=== PATIENT | female | born 1950 | race Caucasian/White ===

== ENCOUNTER 2017-06-21 13:41 | Day surgery (SDC) | payer MEDICARE, MEDICAID | END 2017-06-21 14:23 | disposition home or self-care (01) | LOC: ONC/OP 13:41 | PROVIDERS: ATTEND Internal Medicine Medical Oncology | DX: Z51.11 Encounter for antineoplastic chemotherapy (principal); C50.412 Malignant neoplasm of upper-outer quadrant of left female breast; C79.51 Secondary malignant neoplasm of bone; E11.9 Type 2 diabetes mellitus without complications; I10 Essential (primary) hypertension; F32.9 Major depressive disorder, single episode, unspecified; M79.7 Fibromyalgia; Z79.84 Long term (current) use of oral hypoglycemic drugs; Z79.1 Long term (current) use of non-steroidal anti-inflammatories (NSAID); Z90.49 Acquired absence of other specified parts of digestive tract; Z90.722 Acquired absence of ovaries, bilateral; Z90.79 Acquired absence of other genital organ(s) | CPT/HCPCS: 80053; 82248; 83615; 84100; 84550; 96402; J9395 ==

== ENCOUNTER 2017-07-18 09:18 | Outpatient (CLI) | payer MEDICARE, MEDICAID ==
--- NOTE | 2017-07-19 16:32 | PET ---
PET CT: 07/19/17 Reference made to prior PET scans dating back to March 14, 2015. RADIOPHARMACEUTICAL: 12.9 millicuries [id number] IV. CLINICAL HISTORY: Metastatic breast cancer, followup. There is appropriate biodistribution radiotracer activity. There is a notable degree of diffuse incr eased activity of the colon, nonspecific. Diffuse osseous, blastic metastases are redemonstrated without interval hypermetabolism. No new hype rmetabolic mass or adenopathy is identified. Redemonstration of bilateral adrenal adenomas, stable. Stable postsurgical distortion of the left breast with associated calcific densities. IMPRESSION: No new hypermetabolic lesion identified. Redemonstration of sequela from diffuse osseous blastic metastases. POS: [facility]
== END 2017-07-18 09:19 | disposition home or self-care (01) ==
LOC: PET 09:18
PROVIDERS: ATTEND Internal Medicine Medical Oncology
DX: C50.919 Malignant neoplasm of unspecified site of unspecified female breast (principal)
CPT/HCPCS: 78815; A9552

== ENCOUNTER 2017-07-19 15:02 | Day surgery (SDC) | payer MEDICARE, MEDICAID ==
[2017-07-19] MEDS ORDERED: diphenhydrAMINE 25 MG in Sodium Chloride 0.9% 50 ML IVPB SCH (15:45)
[2017-07-19] MEDS ORDERED: Dexamethasone 6 MG in Sodium Chloride 0.9% 50 ML IVPB SCH (15:45)
[2017-07-19] MEDS ORDERED: Zoledronic Acid 4 MG in Sodium Chloride 0.9% 100 ML IVPB SCH (15:45)
[2017-07-19 16:04] VITALS: BP 118/59; TEMP 98.7
== END 2017-07-19 17:32 | disposition home or self-care (01) ==
LOC: ONC/OP 15:02
PROVIDERS: ATTEND Internal Medicine Medical Oncology
DX: Z51.11 Encounter for antineoplastic chemotherapy (principal); C50.412 Malignant neoplasm of upper-outer quadrant of left female breast; E11.9 Type 2 diabetes mellitus without complications; I10 Essential (primary) hypertension; F32.9 Major depressive disorder, single episode, unspecified; Z17.0 Estrogen receptor positive status [ER+]; Z79.84 Long term (current) use of oral hypoglycemic drugs; Z79.899 Other long term (current) drug therapy; Z90.49 Acquired absence of other specified parts of digestive tract; Z90.710 Acquired absence of both cervix and uterus; Z90.722 Acquired absence of ovaries, bilateral; Z90.79 Acquired absence of other genital organ(s); Z98.890 Other specified postprocedural states
CPT/HCPCS: 36415; 80053; 82248; 83615; 84100; 84550; 96365; 96367; 96401; J1100; J1200; J3489; J7050; J9395

== ENCOUNTER 2017-08-16 14:36 | Day surgery (SDC) | payer MEDICARE, MEDICAID ==
[2017-08-16 14:44] VITALS: BP 130/70; TEMP 97.5
== END 2017-08-16 15:55 | disposition home or self-care (01) ==
LOC: ONC/OP 14:36
PROVIDERS: ATTEND Internal Medicine Medical Oncology
DX: Z51.11 Encounter for antineoplastic chemotherapy (principal); C50.412 Malignant neoplasm of upper-outer quadrant of left female breast; C79.52 Secondary malignant neoplasm of bone marrow; E11.9 Type 2 diabetes mellitus without complications; I10 Essential (primary) hypertension; F32.9 Major depressive disorder, single episode, unspecified; Z17.0 Estrogen receptor positive status [ER+]; Z79.84 Long term (current) use of oral hypoglycemic drugs; Z79.899 Other long term (current) drug therapy; Z90.49 Acquired absence of other specified parts of digestive tract; Z90.710 Acquired absence of both cervix and uterus; Z90.722 Acquired absence of ovaries, bilateral; Z90.79 Acquired absence of other genital organ(s); Z98.890 Other specified postprocedural states
CPT/HCPCS: 36415; 80053; 82248; 82378; 83615; 84100; 84550; 86300; 96372; J9395

== ENCOUNTER 2017-09-13 15:11 | Day surgery (SDC) | payer MEDICARE, MEDICAID | END 2017-09-13 16:09 | disposition home or self-care (01) | LOC: ONC/OP 15:11 | PROVIDERS: ATTEND Internal Medicine Medical Oncology | DX: Z51.11 Encounter for antineoplastic chemotherapy (principal); C50.412 Malignant neoplasm of upper-outer quadrant of left female breast; C79.51 Secondary malignant neoplasm of bone; C79.52 Secondary malignant neoplasm of bone marrow; E11.9 Type 2 diabetes mellitus without complications; F32.9 Major depressive disorder, single episode, unspecified; I10 Essential (primary) hypertension; Z17.0 Estrogen receptor positive status [ER+]; Z79.84 Long term (current) use of oral hypoglycemic drugs; Z79.899 Other long term (current) drug therapy; Z90.49 Acquired absence of other specified parts of digestive tract; Z90.710 Acquired absence of both cervix and uterus; Z90.722 Acquired absence of ovaries, bilateral; Z90.79 Acquired absence of other genital organ(s); Z98.890 Other specified postprocedural states | CPT/HCPCS: 36415; 80053; 82248; 83615; 84100; 84550; 96401; J9395 ==

== ENCOUNTER 2017-10-11 15:34 | Day surgery (SDC) | payer MEDICARE, MEDICAID ==
[2017-10-11] MEDS ORDERED: Sodium Chloride 0.9% 20 ML ONE (15:47)
[2017-10-11] MEDS ORDERED: diphenhydrAMINE 25 MG in Sodium Chloride 0.9% 50 ML IVPB SCH (16:00)
[2017-10-11] MEDS ORDERED: Zoledronic Acid 4 MG in Sodium Chloride 0.9% 100 ML IVPB SCH (16:00)
[2017-10-11] MEDS ORDERED: Dexamethasone 6 MG in Sodium Chloride 0.9% 50 ML IVPB SCH (16:00)
[2017-10-11] MEDS ORDERED: PALBOCICLIB PO SCH (16:00)
[2017-10-11 16:38] VITALS: BP 123/58; TEMP 97.8
== END 2017-10-11 18:39 | disposition home or self-care (01) ==
LOC: ONC/OP 15:34
PROVIDERS: ATTEND Internal Medicine Medical Oncology
DX: Z51.11 Encounter for antineoplastic chemotherapy (principal); C50.412 Malignant neoplasm of upper-outer quadrant of left female breast; C79.52 Secondary malignant neoplasm of bone marrow; E11.9 Type 2 diabetes mellitus without complications; I10 Essential (primary) hypertension; F32.9 Major depressive disorder, single episode, unspecified; M79.7 Fibromyalgia; Z17.0 Estrogen receptor positive status [ER+]; Z79.84 Long term (current) use of oral hypoglycemic drugs; Z79.899 Other long term (current) drug therapy; Z90.711 Acquired absence of uterus with remaining cervical stump; Z90.722 Acquired absence of ovaries, bilateral; Z98.890 Other specified postprocedural states
CPT/HCPCS: 36415; 80053; 82248; 82378; 83615; 84100; 84550; 86300; 96365; 96367; 96402; A4216; J1100; J1200; J3489; J7050; J9395

== ENCOUNTER 2017-11-08 13:53 | Day surgery (SDC) | payer MEDICARE, MEDICAID | END 2017-11-08 14:26 | disposition home or self-care (01) | LOC: ONC/OP 13:53 | PROVIDERS: ATTEND Internal Medicine Medical Oncology | DX: Z51.11 Encounter for antineoplastic chemotherapy (principal); C50.412 Malignant neoplasm of upper-outer quadrant of left female breast; Z17.0 Estrogen receptor positive status [ER+]; E11.9 Type 2 diabetes mellitus without complications; I10 Essential (primary) hypertension; F32.9 Major depressive disorder, single episode, unspecified; M79.7 Fibromyalgia; Z90.49 Acquired absence of other specified parts of digestive tract; Z90.710 Acquired absence of both cervix and uterus; Z90.722 Acquired absence of ovaries, bilateral | CPT/HCPCS: 36415; 80053; 82248; 83615; 84100; 84550; 96402; J9395 ==

== ENCOUNTER 2017-12-06 14:09 | Day surgery (SDC) | payer MEDICARE, MEDICAID ==
[2017-12-06 14:21] VITALS: BP 116/55; TEMP 97.9
== END 2017-12-06 15:36 | disposition home or self-care (01) ==
LOC: ONC/OP 14:09
PROVIDERS: ATTEND Internal Medicine Medical Oncology
DX: Z51.11 Encounter for antineoplastic chemotherapy (principal); C50.412 Malignant neoplasm of upper-outer quadrant of left female breast; C79.51 Secondary malignant neoplasm of bone; C79.52 Secondary malignant neoplasm of bone marrow; E11.9 Type 2 diabetes mellitus without complications; I10 Essential (primary) hypertension; F32.9 Major depressive disorder, single episode, unspecified; M79.7 Fibromyalgia; Z17.0 Estrogen receptor positive status [ER+]; Z79.84 Long term (current) use of oral hypoglycemic drugs; Z79.899 Other long term (current) drug therapy
CPT/HCPCS: 96401; J9395

== ENCOUNTER 2018-01-03 14:08 | Day surgery (SDC) | payer MEDICARE, MEDICAID ==
[2018-01-03] MEDS ORDERED: Dexamethasone 10 MG/ML VIAL SLOW IVP SCH ×2 (14:30)
[2018-01-03] MEDS ORDERED: diphenhydrAMINE 50 MG/ML VIAL IVP SCH (14:30)
[2018-01-03] MEDS ORDERED: Zoledronic Acid 4 MG in Sodium Chloride 0.9% 100 ML IVPB SCH (14:30)
[2018-01-03] MEDS ORDERED: Sodium Chloride 0.9% 50 ML ONE (14:50)
[2018-01-03 15:31] VITALS: BP 131/63
== END 2018-01-03 16:30 | disposition home or self-care (01) ==
LOC: ONC/OP 14:08
PROVIDERS: ATTEND Internal Medicine Medical Oncology
DX: Z51.11 Encounter for antineoplastic chemotherapy (principal); C50.412 Malignant neoplasm of upper-outer quadrant of left female breast; C79.51 Secondary malignant neoplasm of bone; E11.9 Type 2 diabetes mellitus without complications; I10 Essential (primary) hypertension; F32.9 Major depressive disorder, single episode, unspecified; M79.7 Fibromyalgia; Z17.0 Estrogen receptor positive status [ER+]; Z79.84 Long term (current) use of oral hypoglycemic drugs; Z79.899 Other long term (current) drug therapy
CPT/HCPCS: 96365; 96375; 96402; A4216; J1100; J1200; J3489; J7050; J9395

== ENCOUNTER 2018-01-25 07:25 | Outpatient (CLI) | payer MEDICARE, MEDICAID ==
--- NOTE | 2018-01-25 10:09 | PET ---
RADIONUCLIDE PET SCAN WITH CT ATTENUATION CORRECTION: Date: 01/25/18 HISTORY: Breast cancer with osseous metastasis. Restaging. COMPARISON: 07/18/17. FINDINGS: Physiologic uptake of radiotracer is again demonstrated throughout the enteric system and along each urinary tract. A new focus of increased radiotracer uptake at the posterior aspect of the left iliac bone shows a ma ximum SUV of 7.2. A new focus of uptake at the posterior lateral aspect of the right side of the sacr um shows a maximum SUV of 3.2. No other new areas of abnormal uptake are apparent. Nondiagnostic CT attenuation correction images again show widespread osseous sclerotic lesions. The a reas of abnormal radiotracer uptake at the pelvis show no interval change on the CT images. Postopera tive changes of the left breast and adrenal adenomas and other findings are stable. IMPRESSION: Interval appearance of hypermetabolic lesions associated with the pelvis as detailed above. Findings are otherwise stable. POS: [facility]
== END 2018-01-25 07:26 | disposition home or self-care (01) ==
LOC: PET 07:25
PROVIDERS: ATTEND Internal Medicine Medical Oncology
DX: C50.919 Malignant neoplasm of unspecified site of unspecified female breast (principal); M89.9 Disorder of bone, unspecified
CPT/HCPCS: 78815; A9552

== ENCOUNTER 2018-01-31 15:19 | Day surgery (SDC) | payer MEDICARE, MEDICAID ==
[2018-01-31] MEDS ORDERED: IBRANCE PO SCH (15:45)
[2018-01-31 16:09] VITALS: BP 130/58; TEMP 98.4
== END 2018-01-31 16:09 | disposition home or self-care (01) ==
LOC: ONC/OP 15:19
PROVIDERS: ATTEND Internal Medicine Medical Oncology
DX: Z51.11 Encounter for antineoplastic chemotherapy (principal); C50.412 Malignant neoplasm of upper-outer quadrant of left female breast; C79.51 Secondary malignant neoplasm of bone
CPT/HCPCS: 96402; J9395

== ENCOUNTER 2018-02-28 13:57 | Day surgery (SDC) | payer MEDICARE, MEDICAID | END 2018-02-28 16:01 | disposition home or self-care (01) | LOC: ONC/OP 13:57 | PROVIDERS: ATTEND Internal Medicine Medical Oncology | DX: Z51.11 Encounter for antineoplastic chemotherapy (principal); C50.412 Malignant neoplasm of upper-outer quadrant of left female breast; C79.52 Secondary malignant neoplasm of bone marrow; F32.9 Major depressive disorder, single episode, unspecified; E11.9 Type 2 diabetes mellitus without complications; M79.7 Fibromyalgia; Z17.0 Estrogen receptor positive status [ER+]; Z79.899 Other long term (current) drug therapy; Z79.84 Long term (current) use of oral hypoglycemic drugs | CPT/HCPCS: 96402; J9395 ==

== ENCOUNTER 2018-03-19 13:54 | Outpatient (CLI) | payer MEDICARE, MEDICAID | END 2018-03-19 13:55 | disposition home or self-care (01) | LOC: BICMAMMO 13:54 | PROVIDERS: ATTEND Internal Medicine Medical Oncology | DX: Z08 Encounter for follow-up examination after completed treatment for malignant neoplasm (principal); Z85.3 Personal history of malignant neoplasm of breast | CPT/HCPCS: 77066; G0279 ==

== ENCOUNTER 2018-03-28 14:24 | Day surgery (SDC) | payer MEDICARE, MEDICAID ==
[2018-03-28] MEDS ORDERED: Sodium Chloride 0.9% 50 ML ONE (14:49)
[2018-03-28] MEDS ORDERED: Dexamethasone 10 MG/ML VIAL SLOW IVP SCH (15:15)
[2018-03-28] MEDS ORDERED: diphenhydrAMINE 50 MG/ML VIAL IVP SCH (15:15)
[2018-03-28] MEDS ORDERED: Zoledronic Acid 4 MG in Sodium Chloride 0.9% 100 ML IVPB SCH (15:15)
== END 2018-03-28 16:12 | disposition home or self-care (01) ==
LOC: ONC/OP 14:24
PROVIDERS: ATTEND Internal Medicine Medical Oncology
DX: Z51.11 Encounter for antineoplastic chemotherapy (principal); C50.412 Malignant neoplasm of upper-outer quadrant of left female breast; C79.51 Secondary malignant neoplasm of bone; E11.9 Type 2 diabetes mellitus without complications; I10 Essential (primary) hypertension; F32.9 Major depressive disorder, single episode, unspecified; M79.7 Fibromyalgia; Z17.0 Estrogen receptor positive status [ER+]; Z79.899 Other long term (current) drug therapy
CPT/HCPCS: 80053; 82248; 83615; 84100; 84550; 96365; 96375; 96402; A4216; J1100; J1200; J3489; J7050; J9395

== ENCOUNTER 2018-05-02 13:29 | Day surgery (SDC) | payer MEDICARE, MEDICAID ==
[2018-05-02 13:44] VITALS: BP 155/72; TEMP 97.7
== END 2018-05-02 14:06 | disposition home or self-care (01) ==
LOC: ONC/OP 13:29
PROVIDERS: ATTEND Internal Medicine Medical Oncology
DX: Z51.11 Encounter for antineoplastic chemotherapy (principal); C50.412 Malignant neoplasm of upper-outer quadrant of left female breast; E11.9 Type 2 diabetes mellitus without complications; I10 Essential (primary) hypertension; Z79.84 Long term (current) use of oral hypoglycemic drugs; Z79.899 Other long term (current) drug therapy
CPT/HCPCS: 80053; 82248; 83615; 84100; 84550; 96402; J9395

== ENCOUNTER 2018-05-30 13:56 | Day surgery (SDC) | payer MEDICARE, MEDICAID | END 2018-05-30 16:35 | disposition home or self-care (01) | LOC: ONC/OP 13:56 | PROVIDERS: ATTEND Internal Medicine Medical Oncology | DX: Z51.11 Encounter for antineoplastic chemotherapy (principal); C50.412 Malignant neoplasm of upper-outer quadrant of left female breast; E11.9 Type 2 diabetes mellitus without complications; I10 Essential (primary) hypertension; F32.9 Major depressive disorder, single episode, unspecified; Z79.899 Other long term (current) drug therapy | CPT/HCPCS: 36415; 80053; 82248; 83615; 84100; 84550; 96402; J9395 ==

== ENCOUNTER 2018-06-28 14:05 | Day surgery (SDC) | payer MEDICARE, MEDICAID ==
[2018-06-28] MEDS ORDERED: Dexamethasone 6 MG in Sodium Chloride 0.9% 50 ML IVPB SCH (14:30)
[2018-06-28] MEDS ORDERED: diphenhydrAMINE 25 MG CAP PO SCH (14:30)
[2018-06-28] MEDS ORDERED: Zoledronic Acid 4 MG in Sodium Chloride 0.9% 100 ML IVPB SCH (14:30)
[2018-06-28] MEDS ORDERED: Sodium Chloride 0.9% 20 ML ONE (14:39)
== END 2018-06-28 19:47 | disposition home or self-care (01) ==
LOC: ONC/OP 14:05
PROVIDERS: ATTEND Internal Medicine Medical Oncology
DX: Z51.11 Encounter for antineoplastic chemotherapy (principal); C50.412 Malignant neoplasm of upper-outer quadrant of left female breast; E11.9 Type 2 diabetes mellitus without complications; I10 Essential (primary) hypertension; F32.9 Major depressive disorder, single episode, unspecified; Z79.84 Long term (current) use of oral hypoglycemic drugs; Z79.899 Other long term (current) drug therapy
CPT/HCPCS: 80053; 82378; 86300; 96365; 96367; 96402; J1100; J3489; J7050; J9395

== ENCOUNTER 2018-07-10 12:47 | Outpatient (CLI) | payer MEDICARE, MEDICAID ==
--- NOTE | 2018-07-10 15:48 | PET ---
RADIONUCLIDE PET SCAN WITH CT ATTENUATION CORRECTION: HISTORY: Breast cancer with osseous metastasis. Restaging. COMPARISON: 01/25/18. FINDINGS: Physiologic uptake of radiotracer throughout the entire system and along each urinary tract. At the right axilla, increased uptake is associated with two adjacent nonenlarged lymph nodes. Maximu m SUV 4.8. Uptake at the posterior aspect of the left iliac bone now shows maximum SUV of 4.5 (previously 7.2). Uptake at the lateral margin of the left sacrum adjacent to the sacroiliac joint now shows maximum CLEMENTS V of 6.5 (previously 3.0). The lesion at the right side of the sacrum shows maximum SUV of 2.8 (previously 3.2). No new areas of uptake are apparent. IMPRESSION: 1. New hypermetabolic nonenlarged right axillary lymph nodes. 2. Increasing hypermetabolic activity associated with the left sacral lesion. Other lesions in the p crow are stable. POS: [facility]
== END 2018-07-10 12:48 | disposition home or self-care (01) ==
LOC: PET 12:47
PROVIDERS: ATTEND Internal Medicine Hematology & Oncology
DX: C50.912 Malignant neoplasm of unspecified site of left female breast (principal); M53.3 Sacrococcygeal disorders, not elsewhere classified
CPT/HCPCS: 78815; A9552

== ENCOUNTER 2018-07-26 13:29 | Day surgery (SDC) | payer MEDICARE, MEDICAID ==
[2018-07-26 13:40] VITALS: BP 147/69; TEMP 97.6
== END 2018-07-26 15:51 | disposition home or self-care (01) ==
LOC: ONC/OP 13:29
PROVIDERS: ATTEND Internal Medicine Medical Oncology
DX: Z51.11 Encounter for antineoplastic chemotherapy (principal); C50.412 Malignant neoplasm of upper-outer quadrant of left female breast
CPT/HCPCS: 80053; 82248; 83615; 84100; 84550; 96402; J9395

== ENCOUNTER 2018-08-27 14:05 | Day surgery (SDC) | payer MEDICARE, MEDICAID ==
[2018-08-27 14:42] VITALS: BP 154/66; TEMP 97.6
== END 2018-08-27 16:10 | disposition home or self-care (01) ==
LOC: ONC/OP 14:05
PROVIDERS: ATTEND Internal Medicine Medical Oncology
DX: Z51.11 Encounter for antineoplastic chemotherapy (principal); C50.412 Malignant neoplasm of upper-outer quadrant of left female breast; C79.51 Secondary malignant neoplasm of bone; E11.9 Type 2 diabetes mellitus without complications; I10 Essential (primary) hypertension; F32.9 Major depressive disorder, single episode, unspecified; M79.7 Fibromyalgia; Z79.84 Long term (current) use of oral hypoglycemic drugs; Z79.899 Other long term (current) drug therapy
CPT/HCPCS: 96402; J9395

== ENCOUNTER 2018-09-20 14:10 | Day surgery (SDC) | payer MEDICARE, MEDICAID ==
[2018-09-20] MEDS ORDERED: Zoledronic Acid 4 MG in Sodium Chloride 0.9% 100 ML IVPB SCH (14:30)
[2018-09-20] MEDS ORDERED: Dexamethasone 4 mg/ml Vial SLOW IVP SCH (14:30)
[2018-09-20] MEDS ORDERED: diphenhydrAMINE 25 MG CAP PO SCH (14:30)
[2018-09-20] MEDS ORDERED: Sodium Chloride 0.9% 30 ML ONE (14:33)
[2018-09-20 14:55] VITALS: BP 118/58; TEMP 98.7
== END 2018-09-20 15:45 | disposition home or self-care (01) ==
LOC: ONC/OP 14:10
PROVIDERS: ATTEND Internal Medicine Medical Oncology
DX: Z51.11 Encounter for antineoplastic chemotherapy (principal); C50.412 Malignant neoplasm of upper-outer quadrant of left female breast
CPT/HCPCS: 80053; 82248; 83615; 84100; 84550; 96365; 96402; J1100; J3489; J7050; J9395

== ENCOUNTER 2018-10-11 08:50 | Outpatient (CLI) | payer MEDICARE, MEDICAID ==
--- NOTE | 2018-10-11 12:19 | PET ---
NUCLEAR MEDICINE FDG PET CT WHOLE BODY: (Positron Emission Tomography) DATE: 10/11/18 HISTORY: 68-year-old female for restaging of breast cancer with bone metastasis. COMPARISON: 07/10/18 TECHNIQUE: IV injection F-18 Fluorodeoxyglucose (FDG) dose: 12 mCi Whole body PET and attenuation-correction CT performed from vertex of head to bottom of feet. FINDINGS: SUV (standard uptake value) numbers given are maximum SUV's. QCLR used to obtained SUV. Again noted are the very extensive sclerotic metastatic lesions throughout the skeleton. Only some ar e FDG-avid. The left T11 transverse process has current SUV of 3.1. It was previously 4.0. The lesion at the posterior superior aspect of the left ilium currently has SUV of 5.5. Previously, i t was 4.5. Inferior to that, lesion at the lateral aspect of left sacral ala abutting the SI joint has current S UV of 5.0. Previously, it was 6.5. The previously demonstrated hypermetabolic right axillary lymph node has resolved. Currently, no evidence of hypermetabolic metastatic lesions of soft tissue structures within the abdo indra cavity, pelvic cavity, thoracic cavity, neck, or extracranial head. IMPRESSION: 1. Very extensive osteoblastic skeletal metastatic disease. 2. Hypermetabolic activity involves only some of the skeletal lesions (the others are presumably rad escent). One of them has greater uptake than before, while others have less uptake than before. 3. The previously demonstrated hypermetabolic right axillary lymph node has improved. ANGELI Byers POS: [facility]
== END 2018-10-11 08:51 | disposition home or self-care (01) ==
LOC: PET 08:50
PROVIDERS: ATTEND Internal Medicine Medical Oncology
DX: C50.919 Malignant neoplasm of unspecified site of unspecified female breast (principal); C79.51 Secondary malignant neoplasm of bone
CPT/HCPCS: 78816; A9552

== ENCOUNTER 2018-10-18 13:38 | Day surgery (SDC) | payer MEDICARE, MEDICAID ==
[2018-10-18 13:52] VITALS: BP 128/60; TEMP 97.8
== END 2018-10-18 14:29 | disposition home or self-care (01) ==
LOC: ONC/OP 13:38
PROVIDERS: ATTEND Internal Medicine Medical Oncology
DX: Z51.11 Encounter for antineoplastic chemotherapy (principal); C50.412 Malignant neoplasm of upper-outer quadrant of left female breast; C79.51 Secondary malignant neoplasm of bone; E11.9 Type 2 diabetes mellitus without complications; I10 Essential (primary) hypertension; F32.9 Major depressive disorder, single episode, unspecified; M79.7 Fibromyalgia; Z17.0 Estrogen receptor positive status [ER+]; Z79.84 Long term (current) use of oral hypoglycemic drugs; Z79.899 Other long term (current) drug therapy
CPT/HCPCS: 80053; 82248; 82378; 83615; 84100; 84550; 86300; 96402; J9395

== ENCOUNTER 2018-11-22 10:10 | Day surgery (SDC) | payer MEDICARE, MEDICAID ==
[2018-11-22 10:51] VITALS: BP 151/61; TEMP 97.7
== END 2018-11-22 10:51 | disposition home or self-care (01) ==
LOC: ONC/OP 10:10
PROVIDERS: ATTEND Internal Medicine Medical Oncology
DX: Z51.11 Encounter for antineoplastic chemotherapy (principal); C50.412 Malignant neoplasm of upper-outer quadrant of left female breast; C79.51 Secondary malignant neoplasm of bone; E11.9 Type 2 diabetes mellitus without complications; I10 Essential (primary) hypertension; F32.9 Major depressive disorder, single episode, unspecified; M79.7 Fibromyalgia; Z17.0 Estrogen receptor positive status [ER+]
CPT/HCPCS: 36415; 80053; 82248; 83615; 84100; 84550; 96402; J9395

== ENCOUNTER 2018-12-20 13:46 | Day surgery (SDC) | payer MEDICARE, MEDICAID ==
[~2018-12-20 13:46] MED LIST: Dexamethasone 6 MG in Sodium Chloride 0.9% 50 ML IVPB SCH; Dexamethasone Sod Phosphate 6 MG in Sodium Chloride 0.9% 50 ML IVPB SCH; Zoledronic Acid 4 MG in Sodium Chloride 0.9% 100 ML IVPB SCH; diphenhydrAMINE 25 MG in Sodium Chloride 0.9% 50 ML IVPB SCH; diphenhydrAMINE 50 MG in Sodium Chloride 0.9% 50 ML IVPB SCH
[2018-12-20] MEDS ORDERED: Sodium Chloride 0.9% 20 ML ONE (13:48)
[2018-12-20 14:31] VITALS: BP 174/81; TEMP 98.5
== END 2018-12-20 15:58 | disposition home or self-care (01) ==
LOC: ONC/OP 13:46
PROVIDERS: ATTEND Internal Medicine Medical Oncology
DX: Z51.11 Encounter for antineoplastic chemotherapy (principal); C50.412 Malignant neoplasm of upper-outer quadrant of left female breast; Z17.0 Estrogen receptor positive status [ER+]
CPT/HCPCS: 80053; 82248; 82378; 83615; 84100; 84550; 86300; 96366; 96375; 96401; J1100; J1200; J3489; J7050; J9395

== ENCOUNTER 2019-01-17 13:42 | Day surgery (SDC) | payer MEDICARE, MEDICAID ==
[2019-01-17 13:57] VITALS: BP 171/73; TEMP 98.3
== END 2019-01-17 13:59 | disposition home or self-care (01) ==
LOC: ONC/OP 13:42
PROVIDERS: ATTEND Internal Medicine Medical Oncology
DX: Z51.11 Encounter for antineoplastic chemotherapy (principal); C50.412 Malignant neoplasm of upper-outer quadrant of left female breast; Z17.0 Estrogen receptor positive status [ER+]
CPT/HCPCS: 36415; 80053; 82248; 83615; 84100; 84550; 96402; J9395

== ENCOUNTER 2019-02-14 13:25 | Day surgery (SDC) | payer MEDICARE, MEDICAID ==
[2019-02-14 14:06] VITALS: BP 138/64; TEMP 98.3
== END 2019-02-14 14:06 | disposition home or self-care (01) ==
LOC: ONC/OP 13:25
PROVIDERS: ATTEND Internal Medicine Medical Oncology
DX: Z51.11 Encounter for antineoplastic chemotherapy (principal); C50.412 Malignant neoplasm of upper-outer quadrant of left female breast
CPT/HCPCS: 80053; 82248; 83615; 84100; 84550; 96402; J9395

== ENCOUNTER 2019-03-14 14:06 | Day surgery (SDC) | payer MEDICARE, MEDICAID ==
[2019-03-14 15:44] VITALS: BP 153/67; TEMP 98.2
== END 2019-03-14 16:06 | disposition home or self-care (01) ==
LOC: ONC/OP 14:06
PROVIDERS: ATTEND Internal Medicine Medical Oncology
DX: Z51.11 Encounter for antineoplastic chemotherapy (principal); C50.412 Malignant neoplasm of upper-outer quadrant of left female breast; Z17.0 Estrogen receptor positive status [ER+]
CPT/HCPCS: 96401; J9395

== ENCOUNTER 2019-03-14 14:13 | Outpatient (CLI) | payer MEDICARE, MEDICAID ==
--- NOTE | 2019-03-14 15:50 | RAD ---
PELVIS AP STANDARD: 03/14/19 HISTORY: SI joint pain. COMPARISON: PET CT from September 2018. FINDINGS: There is ivory appearance of the osseous pelvis and lower lumbar spine. Diffuse sclerosis. Mild narrowing of the pubic symphysis. Mild degenerative change of the SI joints. Mild right gluteus medius calcific tendinosis. No dilated loops of bowel in the abdomen. No pathologic fracture appreciated. IMPRESSION: 1. Diffuse osseous blastic metastatic disease. 2. Calcific tendinosis of right gluteus medius tendon. POS: [facility]
== END 2019-03-14 14:14 | disposition home or self-care (01) ==
LOC: RAD 14:13
PROVIDERS: ATTEND Internal Medicine Medical Oncology
DX: M53.3 Sacrococcygeal disorders, not elsewhere classified (principal); C79.51 Secondary malignant neoplasm of bone; M65.28 Calcific tendinitis, other site
CPT/HCPCS: 72170

== ENCOUNTER 2019-03-27 12:43 | Outpatient (CLI) | payer MEDICARE, MEDICAID ==
--- NOTE | 2019-03-27 15:29 | MMO ---
Bilateral MAMMO Bilat Screen [facility]. CLINICAL HISTORY: Patient is 68 years old and is seen for screening. The patient has no family history of breast cancer. The patient has a history of Ultrasound Guided Core Biopsy procedure revealed invasive lobular left breast carcinoma in June, and Excisional Biopsy procedure revealed invasive Adenocarcinoma in the left breast in June,. The patient has a history of left Ultrasound Guided Core Biopsy in June, and left Lumpectomy in 2005 - malignant. VIEWS: The views performed were: bilateral craniocaudal with tomosynthesis and bilateral mediolateral oblique with tomosynthesis. FILMS COMPARED: The present examination has been compared to prior imaging studies performed at [facility] on 03/09/2015, 03/14/2016, 03/16/2017 and 03/19/2018. MAMMOGRAM FINDINGS: The breasts are heterogeneously dense, which could obscure a lesion on mammography. There are stable post operative changes seen in the right breast. There are no suspicious masses, suspicious calcifications, or new areas of architectural distortion. IMPRESSION: THERE IS NO MAMMOGRAPHIC EVIDENCE OF MALIGNANCY. A ROUTINE FOLLOW-UP MAMMOGRAM IN 1 YEAR IS RECOMMENDED. THE RESULTS OF THIS EXAM WERE SENT TO THE PATIENT. ACR BI-RADS Category 2 - Benign finding MAMMOGRAPHY NOTE: 1. A negative mammogram report should not delay a biopsy if a dominant of clinically suspicious mass is present. 2. Approximately 10% to 15% of breast cancers are not detected by mammography. 3. Adenosis and dense breasts may obscure an underlying neoplasm. Reported by: RADHA PATTON MD Electonically Signed: [id number]
== END 2019-03-27 12:44 | disposition home or self-care (01) ==
LOC: BICMAMMO 12:43
PROVIDERS: ATTEND Internal Medicine Medical Oncology
DX: Z12.31 Encounter for screening mammogram for malignant neoplasm of breast (principal); Z85.3 Personal history of malignant neoplasm of breast; Z98.890 Other specified postprocedural states
CPT/HCPCS: 77063; 77067

== ENCOUNTER 2019-04-11 13:21 | Day surgery (SDC) | payer MEDICARE, MEDICAID ==
[~2019-04-11 13:21] MED LIST changes: -Dexamethasone 6 MG in Sodium Chloride 0.9% 50 ML IVPB SCH; -diphenhydrAMINE 50 MG in Sodium Chloride 0.9% 50 ML IVPB SCH
[2019-04-11] MEDS ORDERED: Sodium Chloride 0.9% 20 ML ONE (14:06)
[2019-04-11 14:21] VITALS: BP 168/71; TEMP 97.9
== END 2019-04-11 15:53 | disposition home or self-care (01) ==
LOC: ONC/OP 13:21
PROVIDERS: ATTEND Internal Medicine Medical Oncology
DX: Z51.11 Encounter for antineoplastic chemotherapy (principal); C50.412 Malignant neoplasm of upper-outer quadrant of left female breast
CPT/HCPCS: 80053; 82248; 83615; 84100; 84550; 96366; 96375; 96402; J1100; J1200; J3489; J3490; J9395

== ENCOUNTER 2019-04-18 09:24 | Outpatient (CLI) | payer MEDICARE, MEDICAID ==
--- NOTE | 2019-04-18 13:32 | PET ---
PET IMAGING: HISTORY: 68-year-old female. Metastatic breast cancer. Osseous metastasis. Previous has undergone previous the rapy. Evaluate for response to therapy versus progression of disease. COMPARISON: None. TECHNIQUE: PET scanning with CT attenuation correction is performed from the base of the brain to the proximal t highs following the intravenous administration of 11.5 mCi F18-FDG. FINDINGS: HEAD/NECK: No abnormal FDG localization. CHEST: No abnormal FDG localization. ABDOMEN/PELVIS: No abnormal FDG localization. OSSEOUS STRUCTURES: CT used for attenuation correction demonstrates multifocal sclerotic lesions. The left transverse pro cess at T11 currently has a maximum SUV of 3.3 (previously 3.1). There is increased FDG avidity invol ving the left iliac wing which currently has a maximum SUV of 6.9 (previously 5.5). There is increase d FDG avidity in the left sacral ala with a maximum SUV of 8.0 (previously 5.0). There is also FDG av idity in the right aspect of the sacrum. Currently, maximum SUV is 4.6. Previously, maximum SUV was 3 .2. IMPRESSION: Increased FDG avidity involving multiple osseous metastatic lesions. Additionally, there are multiple nonhypermetabolic sclerotic foci throughout the osseous structures, similar to the previous examinat ion, likely representing treated osseous metastasis. POS: [facility]
== END 2019-04-18 09:25 | disposition home or self-care (01) ==
LOC: PET 09:24
PROVIDERS: ATTEND Internal Medicine Medical Oncology
DX: C79.51 Secondary malignant neoplasm of bone (principal); C50.919 Malignant neoplasm of unspecified site of unspecified female breast
CPT/HCPCS: 78815; A9552

== ENCOUNTER 2019-05-09 13:32 | Day surgery (SDC) | payer MEDICARE, MEDICAID ==
[2019-05-09 13:44] VITALS: BP 171/74; TEMP 97.6
== END 2019-05-09 13:45 | disposition home or self-care (01) ==
LOC: ONC/OP 13:32
PROVIDERS: ATTEND Internal Medicine Medical Oncology
DX: Z51.11 Encounter for antineoplastic chemotherapy (principal); C50.412 Malignant neoplasm of upper-outer quadrant of left female breast; Z17.0 Estrogen receptor positive status [ER+]
CPT/HCPCS: 80053; 82248; 83615; 84100; 84550; 96401; J9395

== ENCOUNTER 2019-06-13 14:09 | Day surgery (SDC) | payer MEDICARE, MEDICAID | END 2019-06-13 16:00 | disposition home or self-care (01) | LOC: ONC/OP 14:09 | PROVIDERS: ATTEND Internal Medicine Medical Oncology | DX: Z51.11 Encounter for antineoplastic chemotherapy (principal); C50.412 Malignant neoplasm of upper-outer quadrant of left female breast; Z17.0 Estrogen receptor positive status [ER+] | CPT/HCPCS: 80053; 82248; 83615; 84100; 84550; 96402; J9395 ==

== ENCOUNTER 2019-07-18 14:04 | Day surgery (SDC) | payer MEDICARE, MEDICAID ==
[~2019-07-18 14:04] MED LIST changes: +Dexamethasone 10 MG/ML VIAL SLOW IVP SCH; +Dexamethasone 6 MG in Sodium Chloride 0.9% 50 ML IVPB SCH; -Dexamethasone Sod Phosphate 6 MG in Sodium Chloride 0.9% 50 ML IVPB SCH
[2019-07-18] MEDS ORDERED: Sodium Chloride 0.9% 30 ML ONE (14:05)
== END 2019-07-18 14:58 | disposition home or self-care (01) ==
LOC: ONC/OP 14:04
PROVIDERS: ATTEND Internal Medicine Medical Oncology
DX: Z51.11 Encounter for antineoplastic chemotherapy (principal); C50.412 Malignant neoplasm of upper-outer quadrant of left female breast
CPT/HCPCS: 36415; 80053; 82248; 83615; 84100; 84550; 96365; 96375; 96402; J1100; J1200; J3489; J3490; J9395

== ENCOUNTER → 2019-08-14 | Day surgery (SDC) | payer MEDICARE, MEDICAID ==
[2019-08-14 15:33] VITALS: BP 171/76; TEMP 98.3
== END ==
LOC: ONC/OP 15:11
PROVIDERS: ATTEND Internal Medicine Medical Oncology
DX: Z51.12 Encounter for antineoplastic immunotherapy (principal); C50.412 Malignant neoplasm of upper-outer quadrant of left female breast
CPT/HCPCS: 96402; J9395

== ENCOUNTER → 2019-09-16 | Day surgery (SDC) | payer MEDICARE, MEDICAID ==
[2019-09-16 14:31] VITALS: BP 154/71; TEMP 97.3
== END ==
LOC: ONC/OP 14:08
PROVIDERS: ATTEND Internal Medicine Medical Oncology
DX: Z51.11 Encounter for antineoplastic chemotherapy (principal); C50.412 Malignant neoplasm of upper-outer quadrant of left female breast
CPT/HCPCS: 96402; J9395

== ENCOUNTER 2019-10-03 11:13 | Outpatient (CLI) | payer MEDICARE, MEDICAID ==
--- NOTE | 2019-10-03 14:13 | PET ---
EXAM: PET/CT HISTORY: Left breast cancer, malignant neoplasm of upper outer left breast. Bone metastases. Last chemotherapy in 09/12/2019. Exam requested for restaging. TECHNIQUE: PET scanning with CT attenuation correction was performed from the base of the brain to the proximal thighs following the intravenous administration of 10.5 millicuries [id number]. COMPARISON: PET/CT dated 04/18/2019 FINDINGS: No jay hypermetabolism is seen in the neck, chest, axillae, abdomen or pelvis. No hypermetabolic pulmonary nodules, liver or adrenal lesions are seen. Multiple hypermetabolic lesions are seen in the skeleton including the right maxilla, spine, pelvis, proximal femurs, right scapula and left proximal humerus several of these are new since the last study. The maximum SUV is 5.7 at L5. There is physiologic activity in the GI and tracts and the visualized portions of the brain. The CT scan used for attenuation correction demonstrates no evidence of pleural effusions or ascites. Numerous sclerotic lesions are seen throughout the skeleton. The 2 cm right adrenal nodule demonstrates no abnormal FDG localization. IMPRESSION: Interval worsening of osseous metastatic disease since 04/18/2019
== END 2019-10-03 11:14 | disposition home or self-care (01) ==
LOC: PET 11:13
PROVIDERS: ATTEND Internal Medicine Medical Oncology
DX: C50.412 Malignant neoplasm of upper-outer quadrant of left female breast (principal); C79.51 Secondary malignant neoplasm of bone
CPT/HCPCS: 78815; A9552

== ENCOUNTER 2019-10-17 14:40 | Day surgery (SDC) | payer MEDICARE, MEDICAID ==
[~2019-10-17 14:40] MED LIST changes: -Dexamethasone 6 MG in Sodium Chloride 0.9% 50 ML IVPB SCH
[2019-10-17 15:44] VITALS: BP 154/68; TEMP 98.5
== END 2019-10-17 16:31 | disposition home or self-care (01) ==
LOC: ONC/OP 14:40
PROVIDERS: ATTEND Internal Medicine Medical Oncology
DX: Z51.11 Encounter for antineoplastic chemotherapy (principal); C50.412 Malignant neoplasm of upper-outer quadrant of left female breast
CPT/HCPCS: 80053; 82248; 82378; 83615; 84100; 84550; 86300; 96365; 96375; 96401; J1100; J1200; J3489; J3490; J9395

== ENCOUNTER 2019-10-18 13:55 | Outpatient (CLI) | payer MEDICARE, MEDICAID ==
--- NOTE | 2019-10-18 14:28 | RAD ---
Frontal and lateral imaging of the left humerus: 10/18/2019 COMPARISON: 08/01/2013 HISTORY: Left breast cancer, osseous metastatic disease FINDINGS: There is a sclerotic lesion within the humeral head measuring approximately 4.2 cm in crani ocaudal dimension, consistent with osseous metastatic disease. This is larger than on the prior exam. There may be an additional subtle sclerotic lesion within the distal left humeral shaft. IMPRESSION: Evidence of osseous metastatic disease as above.
--- NOTE | 2019-10-18 15:56 | RAD ---
LEFT FEMUR 2 VIEWS: COMPARISON: 08/01/2013. FINDINGS: Extensive abnormal sclerotic bone metastasis involving the visualized pelvis, portions of the sacrum and coccyx, and left femur including femoral neck and subtrochanteric regions as well as the proximal , mid, and distal femoral shaft showing worsening when compared to the prior study. No evidence for a pathologic fracture. IMPRESSION: Extensive blastic bone metastasis involving the bony skeleton. No evidence for pathologic fracture. POS: [facility]
--- NOTE | 2019-10-18 15:57 | RAD ---
RIGHT FEMUR 2 VIEWS: HISTORY: Stable IV cancer with bone metastasis. FINDINGS: Scattered sclerotic bone metastasis in the right hemipelvis and right hip as well as scattered areas in the right femoral shaft. No evidence for pathologic fracture. IMPRESSION: Bone metastasis involving the visualized bone skeleton without evidence for pathologic fracture. POS: [facility]
== END 2019-10-18 13:56 | disposition home or self-care (01) ==
LOC: BICRAD 13:55
PROVIDERS: ATTEND Internal Medicine Medical Oncology
DX: C79.51 Secondary malignant neoplasm of bone (principal); C50.919 Malignant neoplasm of unspecified site of unspecified female breast

== ENCOUNTER 2019-11-15 13:36 | Day surgery (SDC) | payer MEDICARE, MEDICAID | END 2019-11-15 16:13 | disposition home or self-care (01) | LOC: ONC/OP 13:36 | PROVIDERS: ATTEND Internal Medicine Medical Oncology | DX: Z51.11 Encounter for antineoplastic chemotherapy (principal); C50.412 Malignant neoplasm of upper-outer quadrant of left female breast | CPT/HCPCS: 96402; J9395 ==

== ENCOUNTER 2019-12-12 13:37 | Day surgery (SDC) | payer MEDICARE, MEDICAID ==
[2019-12-12 14:28] VITALS: BP 147/66; TEMP 97.9
== END 2019-12-12 14:30 | disposition home or self-care (01) ==
LOC: ONC/OP 13:37
PROVIDERS: ATTEND Internal Medicine Medical Oncology
DX: Z51.11 Encounter for antineoplastic chemotherapy (principal); C50.412 Malignant neoplasm of upper-outer quadrant of left female breast
CPT/HCPCS: 80053; 82248; 83615; 84100; 84550; 96402; J9395

== ENCOUNTER 2019-12-19 14:15 | Inpatient (IN) | payer MEDICARE, MEDICAID ==
[2019-12-19 15:26] LABS: Mean Corpuscular HGB CONC 33.2 g/dL (32.0-36.0); Mean Corpuscular Hemoglobin 36.1 pg (27.0-31.0); Mean Platelet Volume 7.5 fL (7.4-10.4); Platelet Count 211 thou/uL (130-400); Red Blood Cell (RBC) Count 3.33 mill/uL (4.20-5.40); White Blood Cell (WBC) Count 4.8 thou/uL (4.8-10.8)
--- NOTE | 2019-12-19 15:28 | RAD ---
CHEST 1 VIEW: Date: 12/19/2019 INDICATION: Elevated blood glucose. COMPARISON: None. FINDINGS: Lungs are clear. Heart size is normal. There are osteoblastic lesions involving the proximal humeri c onsistent with osteoblastic metastatic disease. IMPRESSION: 1. No acute cardiopulmonary abnormality. 2. Diffuse osteoblastic metastatic disease. POS: [facility]
[2019-12-19 15:43] LABS: Band 10 % (5-11); Eosinophils 1 % (0-10); Lymphocytes 18 % (21-51); MDiff Complete? YES; Macrocytosis SLIGHT = 6-15 cells (100X) (0-5/hpf); Monocytes 8 % (0-10); Neutrophil 60 % (42-75); Nucleated RBC 1 % (0); Platelet Morphology Comment Appears Adequate; Polychromasia SLIGHT = 2-3 cells (100X) (0-2/hpf); Tear Drops SLIGHT = 2-5 cells (100X) (0-1/hpf)
[2019-12-19 15:44] LABS: ALT (SGPT) 33 U/L (8-55); AST (SGOT) 37 U/L (5-34); Albumin 4.1 g/dL (3.4-4.8); Alkaline Phosphatase 87 U/L (40-110); Anion Gap 19 mmol/L (10-20); BUN (Urea Nitrogen) 22 mg/dL (9.8-20.1); Bilirubin, Total 0.7 mg/dL (0.2-1.2); Calc. Creatinine Clearance 0 mL/min (70-130); Calcium 9.6 mg/dL (7.8-10.44); Carbon Dioxide 21 mmol/L (23-31); Chloride 91 mmol/L (98-107); Estimated GFR-MDRD 26; Globulin 3.5 g/dL (2.4-3.5); Potassium 3.8 mmol/L (3.5-5.1); Protein, Total 7.6 g/dL (6.0-8.3); Sodium 127 mmol/L (136-145)
[2019-12-19 15:56] LABS: Glucose 620 mg/dL (80-115)
--- NOTE | 2019-12-19 16:48 | PDOC.FPRHP ---
- History of Present Illness Chief Complaint: Elevated blood sugars History of Present Illness: 69 yo F with pmhx of stage IV breast cancer and DM II presented to the ED with elevated blood sugars and mental status changes. Pt states that she noticed her sugars were continuing to rise over the past couple days and today read "T6". Her boyfriend called her pcp and oncologist who recommended she be seen in the ED. Her oncologist, Dr. Hardwick, contacted the ED and noted that her new chemo drug Piquay can cause hyperglycemia. Pt takes metformin at home for her DM. Currently she notes fogginess with her thoughts but otherwise no complaints. Pt also receives radiation therapy through Dr. Stinson. ED Course: 1L NS and 5 unit SC regular insulin - Allergies/Adverse Reactions Allergies Allergy/AdvReac Type Severity Reaction Status Date / Time No Known Allergies Allergy Verified 12/19/19 21:52 - Home Medications Medication Instructions Recorded Confirmed Type Amlodipine Besylate [amLODIPine 2.5 mg PO DAILY 12/19/19 12/19/19 History Besylate] Levothyroxine Sodium [Unithroid] 75 mcg PO DAILY 12/19/19 12/19/19 History Mecobalamin [B12 Active] 1,000 mcg PO DAILY 12/19/19 12/19/19 History Nortriptyline HCl 25 mg PO HS 12/19/19 12/19/19 History PARoxetine HCl [Paxil CR] 25 mg PO DAILY 12/19/19 12/19/19 History Pantoprazole [Protonix] 40 mg PO DAILY 12/19/19 12/19/19 History Pravastatin Sodium 20 mg PO HS 12/19/19 12/19/19 History metFORMIN [Glucophage] 500 mg PO BID- 12/19/19 12/19/19 History risperiDONE [RisperDAL] 0.5 mg PO HS 12/19/19 12/19/19 History - History PMHx: GERD, OA, Metastatic Breast Cancer, hypothryoid, DM II, HTN, CKD, Fibromyalgia, Depression PSHx: Lumpectomy, cataract, hysterectomy, cholecystectomy FHx: CVA - father; CVA and HTN - mother Social: Occasional alcohol, denies any tobacco or drug use - Review of Systems General: denies: fever/chills, weight/appetite/sleep changes Eyes: denies: vision changes, other ENT: denies: rhinorrhea, other Respiratory: denies: cough, shortness of breath Cardiovascular: denies: chest pain, palpitation Gastrointestinal: reports: abdominal pain (mild). denies: nausea, vomiting, diarrhea Genitourinary: reports: polyuria. denies: incontinence, dysuria Skin: denies: rashes, lesions Musculoskeletal: reports: pain (bone pain from mets). denies: swelling Neurological: reports: other (mild confusion). denies: numbness, weakness Psychological: reports: depression. denies: other - Vital signs BP: 145/59, MAP: 87, Pulse: 73, Resp: 16, Temp: 97.8 (Oral), Pain: 0, O2 sat: 95 on (Room Air) - Physical Exam Constitutional: NAD, awake, alert and oriented, well developed HEENT: normocephalic and atraumatic, EOMI, conjunctiva clear, MMM Neck: supple, FROM Heart: RRR, normal S1/S2, pulses present -Heart: 1/6 soft systolic ejection murmur Lungs: CTAB, no respiratory distress Abdomen: soft, bowel sounds present -Abdomen: Minimal diffuse abdominal pain Musculoskeletal: ROM grossly normal Neurological: no focal deficit, CN II-XII intact Skin: no rash/lesions, capillary refill <2 seconds Heme/Lymphatic: no unusual bruising or bleeding Psychiatric: normal mood and affect, good judgment and insight, intact recent and remote memory FMR H&P: Results - Labs Result Diagrams: 12/19/19 15:15 12/19/19 17:38 Lab results: WBC 4.8 thou/uL (4.8-10.8) 12/19/19 15:15 Hgb 12.0 g/dL (12.0-16.0) 12/19/19 15:15 Hct 36.2 % (36.0-47.0) 12/19/19 15:15 MCV 109.0 fL (78.0-98.0) H 12/19/19 15:15 Plt Count 211 thou/uL (130-400) 12/19/19 15:15 Band Neuts % (Manual) 10 % (5-11) 12/19/19 15:15 Sodium 127 mmol/L (136-145) L 12/19/19 15:15 Potassium 3.8 mmol/L (3.5-5.1) 12/19/19 15:15 Chloride 91 mmol/L (98-107) L 12/19/19 15:15 Carbon Dioxide 21 mmol/L (23-31) L 12/19/19 15:15 BUN 22 mg/dL (9.8-20.1) H 12/19/19 15:15 Creatinine 1.93 mg/dL (0.6-1.1) H 12/19/19 15:15 Glucose 620 mg/dL (80-115) H* 12/19/19 15:15 Calcium 9.6 mg/dL (7.8-10.44) 12/19/19 15:15 Total Bilirubin 0.7 mg/dL (0.2-1.2) 12/19/19 15:15 AST 37 U/L (5-34) H 12/19/19 15:15 ALT 33 U/L (8-55) 12/19/19 15:15 Alkaline Phosphatase 87 U/L (40-110) 12/19/19 15:15 Serum Total Protein 7.6 g/dL (6.0-8.3) 12/19/19 15:15 Albumin 4.1 g/dL (3.4-4.8) 12/19/19 15:15 - Radiology Interpretation Chest x-ray Status: report reviewed by me (1. No acute cardiopulmonary abnormality. 2. Diffuse osteoblastic metastatic disease.) FMR H&P: A/P - Problem List (1) CKD (chronic kidney disease) stage 3, GFR 30-59 ml/min Current Visit: Yes Status: Acute Code(s): N18.3 - CHRONIC KIDNEY DISEASE, STAGE 3 (MODERATE) (2) HTN (hypertension) Current Visit: Yes Status: Acute Code(s): I10 - ESSENTIAL (PRIMARY) HYPERTENSION (3) Depression Current Visit: Yes Status: Acute Code(s): F32.9 - MAJOR DEPRESSIVE DISORDER , SINGLE EPISODE, UNSPECIFIED (4) Hypothyroid Current Visit: Yes Status: Acute Code(s): E03.9 - HYPOTHYROIDISM, UNSPECIFIED (5) Malignant neoplasm of breast (female) Current Visit: No Status: Acute Code(s): C50.919 - MALIGNANT NEOPLASM OF UNSP SITE OF UNSPECIFIED FEMALE BREAST (6) Secondary malignant neoplasm of bone and bone marrow Current Visit: No Status: Acute Code(s): C79.51 - SECONDARY MALIGNANT NEOPLASM OF BONE (7) HHNC (hyperglycemic hyperosmolar nonketotic coma) Current Visit: Yes Status: Acute Code(s): E11.01 - TYPE 2 DIABETES MELLITUS WITH HYPEROSMOLARITY WITH COMA - Plan Hyperosmolar Hyperglycemia 2/2 Adverse Drug Reaction - Initial ED: blood sugar >600, beta-hydroxybutarate 0.96, Bicarb 21, GAP 15 - 5u regular insuin and 1L NS in ED - ABG ordered - Hold home metformin - Admit IMCU for DKA protocol with trending BMP Stage IV Breast Cancer - Tramadol for bone mets - Hold Piqray - Will discuss with onc tomorrow regarding ongoing treatments MATHIEU on CKD III - IVF per DKA protocol - Currently near baseline, trend daily BMP - FeNa - Consider renal US if GFR does not improve with fluids Chronic medical conditions: Hypothyroid Hypertension Depression - Continue home medications Diet: NPO IVF: DKA protocol Code: DNAR VTE: Heparin Dispo: Admit to IMCU for DKA protocol. PCP: Dr. Soliman - [facility] FMR H&P: Upper Level - Plan Date/Time: 12/19/19 1059 ILayton DO, have evaluated this patient and agree with findings/plan as outlined by epidemiology internship resident. Pertinent changes/additions are listed here. HPI Ms. Mercer presents for hyperglycemia noted at home She started Piqray (chemo) 1 week ago and since that time has had polyuria and polydipsia. She has been feeling fatigued but otherwise well. Not answering questions appropriately, reports her boyfriend thinks she is acting funny. Denies any sob, dysuria, skin lesion, or chest pain. PE General: NAD HEENT: NCAT Chest: even inspiratory and expiratory effort, no retractions Abdomen: non distended, NTTP MSK: no weakness, or loss of ROM noted Extremities: non-edematous, pulses present Neuro: grossly intact, no focal deficits See epidemiology internship portion for full ROS, PE, labs and vitals. A/P DKA vs Hyperglycemia - AG 15, BHB elevated, glu>600 on admission - admit to imcu with DKA protocol, insulin drip, Q2Hr BMP - IVF resusc. - ABG pending Breast cancer with metastasis - piqray chemotherapy with known side effect of hyperglycemia - contact Dr. Hardwick in AM See epidemiology internship note for mgmt. of chronic problems Dispo: admit to imcu for insulin drip, expect quick closure of gap and txfr to floor, DC 2-3 days. Addendum - Attending - Attending Attestation Date/Time: 12/19/19 2148 I personally evaluated the patient and discussed the management with Dr. Lee at time of admission. I agree with the History, Examination, Assessment and Plan documented above with any addition or exceptions noted below.
[2019-12-19 17:10] LABS: Actual Bicarbonate (HCO3a) 23.2 mEq/L (22-28); Analyzer IN Cardio ER; CO2 Tension 41.7 mmHg (35.0-45.0); Calcium, Ionized 1.15 mmol/L (1.12-1.30); Carboxyhemoglobin (COHb) 0.3 gm% (0.0-3.0); Hemoglobin (Hb) 11.7 g/dL (12.0-16.0); O2 Tension (PaO2) 67.8 mmHg (> 80.0); Potassium - ABG Lab 3.93 mmol/L (3.70-5.30); pH, Arterial 7.36 (7.35-7.45)
[2019-12-19 17:11] LABS: ALV-art Gradient 29.805 (0-20); Puncture Site RB
[2019-12-19] MEDS ORDERED: Ondansetron PF 4 MG/2 ML Vial IVP PRN (17:17)
[2019-12-19] MEDS ORDERED: Ondansetron ODT 4 MG TAB PO PRN (17:17)
[2019-12-19] MEDS ORDERED: NS 0.9% w/ 20 MEQ KCL 1,000 ML IV PRN ×2 (17:17)
[2019-12-19] MEDS ORDERED: Dextrose 5 %-0.45 % NaCl 1,000 ML IV PRN (17:17)
[2019-12-19] MEDS ORDERED: CCU Electrolyte Replacement 1 EACH IVPB ONE (17:17)
[2019-12-19] MEDS ORDERED: Sodium Chloride 0.9% 1,000 ML IV PRN ×4 (17:17)
[2019-12-19] MEDS ORDERED: D5 1/2 NS w/20 mEq KCL 1,000 ML IV PRN (17:17)
[2019-12-19] MEDS ORDERED: Insulin Regular 300 UNITS/3 ML VIAL ONE (17:19)
[2019-12-19] MEDS ORDERED: Morphine 2 MG/ML SYRINGE SLOW IVP PRN ×2 (17:22)
[2019-12-19] MEDS ORDERED: HUMULIN R 100 UNITS in Sodium Chloride 0.9% 100 ML IVPB SCH (17:30)
[2019-12-19] MEDS ORDERED: Magnesium 2 GM/50 ML 2 GM in Premix Bag 1 BAG IVPB PRN (17:30)
[2019-12-19] MEDS ORDERED: Potassium Phosphate 12 MMOL in Sodium Chloride 0.9% 250 ML 250 ML IV PRN (17:30)
[2019-12-19] MEDS ORDERED: Potassium Chloride 40 MEQ in Sodium Chloride 0.9% 250 ML 250 ML IVPB PRN (17:30)
[2019-12-19] MEDS ORDERED: Potassium Chloride 20 MEQ TAB PO PRN (17:30)
[2019-12-19] MEDS ORDERED: Potassium Phosphate 15 MMOL in Sodium Chloride 0.9% 250 ML 250 ML IV PRN (17:30)
[2019-12-19] MEDS ORDERED: PHOS-NAK 1 PKT PACK PO PRN ×2 (17:30)
[2019-12-19] MEDS ORDERED: Magnesium Oxide 400 MG TAB PO PRN ×2 (17:30)
[2019-12-19] MEDS ORDERED: CCU ELECTROLYTE REPLACEMENT PROTOCOL FS PRN (17:30)
[2019-12-19] MEDS ORDERED: Potassium Phosphate 9 MMOL in Sodium Chloride 0.9% 100 ML IVPB PRN (17:30)
[2019-12-19] MEDS ORDERED: Potassium Chloride 40 MEQ in Premix Bag 1 BAG IVPB PRN (17:30)
[2019-12-19 18:07] LABS: Anion Gap 16 mmol/L (10-20); BUN (Urea Nitrogen) 19 mg/dL (9.8-20.1); Calc. Creatinine Clearance 0 mL/min (70-130); Calcium 9.1 mg/dL (7.8-10.44); Carbon Dioxide 23 mmol/L (23-31); Chloride 96 mmol/L (98-107); Estimated GFR-MDRD 31; Glucose 482 mg/dL (80-115); Potassium 4.2 mmol/L (3.5-5.1); Sodium 131 mmol/L (136-145)
[2019-12-19 18:19] LABS: Magnesium 1.8 mg/dL (1.6-2.6); Phosphorus 3.4 mg/dL (2.3-4.7)
[2019-12-19 18:49] LABS: Bilirubin Negative (Negative); Blood, Urine Negative (Negative); Clarity Clear (Clear); Glucose, Urine (Dipstick) Greater than 1000 mg/dL (Negative); Leukocyte Negative Leu/uL (Negative); Nitrite 1+ (Negative); Protein, Urine (Dipstick) Negative (Neg-Trace); RBC/HPF 0-3 HPF (0-3); Squamous Epithelial None Seen HPF (0-3); Urobilinogen Normal mg/dL (Less than 2); WBC/HPF 0-3 HPF (0-3)
[2019-12-19 18:50] LABS: Bacteria/HPF 1+ HPF (None Seen)
[2019-12-19] MEDS ORDERED: HumaLOG 300 UNITS/3 ML VIAL SC PRN (19:06)
[2019-12-19] MEDS ORDERED: Dextrose 50% Abboject 50 ML SYRINGE SLOW IVP PRN (19:06)
[2019-12-19] MEDS ORDERED: Dextrose 5% in Water 1,000 ML IV PRN (19:06)
--- NOTE | 2019-12-19 19:28 | ULT ---
RENAL ULTRASOUND: 12/18/09 COMPARISON: None. HISTORY: Acute kidney injury on chronic kidney disease. TECHNIQUE: Multiplanar rod scale and color Doppler images are obtained in a renal ultrasound. FINDINGS: The kidneys demonstrate slight cortical thinning and increased echogenicity. There are echogenic foci in the left kidney measuring up to 6 mm in size which may represent nonobstructing calcifications. N o hydronephrosis is seen on either side. The kidneys measure 9.2 and 9.3 cm in length on the right an d left, respectively. Limited visualization of the urinary bladder is unremarkable. IMPRESSION: Possible left renal calcifications. POS: [facility]
[2019-12-19] MEDS: Lactated Ringer's 1,000 ML IV SCH (20:30)
[2019-12-19] MEDS ORDERED: Nortriptyline HCl 25 MG CAP PO SCH (21:00)
[2019-12-19] MEDS ORDERED: Famotidine/PF 20 mg/2ml Vial SLOW IVP SCH (21:00)
[2019-12-19] MEDS: Pravastatin Sodium 20 MG TAB PO SCH (21:29)
[2019-12-19] MEDS: Heparin 5,000 UNITS/ML VIAL SC SCH (21:29)
[2019-12-19] MEDS: risperiDONE 0.25 MG TAB PO SCH (21:32)
[2019-12-19 22:26] VITALS: BMI 30.4
[2019-12-19] MEDS: Insulin Glargine 10 UNITS in Pre-Filled Syringe SC SCH (22:56)
[2019-12-20] MEDS: Lactated Ringer's 1,000 ML IV SCH ×4 (03:00→20:23)
[2019-12-20 05:19] LABS: #Basophils 0.1 thou/uL (0.0-0.2); #Eosinphils 0.1 thou/uL (0.0-0.7); #Lymphocytes 1.1 thou/uL (1.20-3.40); #Monocytes 0.5 thou/uL (0.11-0.59); #Neutrophils 2.2 thou/uL (1.40-6.50); %Basophils 2.8 % (0.0-1.0); %Eosinophils 3.6 % (0.0-10.0); %Lymphocytes 27.4 % (21.0-51.0); %Monocytes 12.2 % (0.0-10.0); Hemoglobin 10.4 g/dL (12.0-16.0); Mean Corpuscular HGB CONC 35.3 g/dL (32.0-36.0); Mean Corpuscular Hemoglobin 37.5 pg (27.0-31.0); Platelet Count 157 thou/uL (130-400); RBC Distribution Width 13.9 % (11.5-14.5); Red Blood Cell (RBC) Count 2.77 mill/uL (4.20-5.40)
[2019-12-20 05:39] LABS: Anion Gap 10 mmol/L (10-20); BUN (Urea Nitrogen) 12 mg/dL (9.8-20.1); Calc. Creatinine Clearance 54 mL/min (70-130); Carbon Dioxide 28 mmol/L (23-31); Chloride 100 mmol/L (98-107); Estimated GFR-MDRD 42; Glucose 276 mg/dL (80-115); Potassium 3.6 mmol/L (3.5-5.1); Sodium 134 mmol/L (136-145)
[2019-12-20] MEDS: HumaLOG 300 UNITS/3 ML VIAL SC PRN ×3 (06:35→17:16)
[2019-12-20] MEDS: Levothyroxine Sodium 75 MCG TAB PO SCH (06:39)
[2019-12-20] MEDS ORDERED: metFORMIN 500 MG TAB PO SCH (08:00)
--- NOTE | 2019-12-20 08:09 | PDOC.FM ---
- Objective MAR Reviewed: Yes Vital Signs & Weight: Vital Signs (12 hours) Temp Pulse Resp BP Pulse Ox 12/20/19 07:07 92 L 12/20/19 05:22 98.0 F 70 16 136/75 92 L 12/20/19 00:07 98.1 F 75 16 148/75 H 94 L Weight Weight 80.456 kg I&O: 12/19/19 12/20/19 12/21/19 06:59 06:59 06:59 Intake Total 1000 Output Total 900 Balance 100 Result Diagrams: 12/20/19 04:58 12/20/19 04:58 Dx/Plan (1) CKD (chronic kidney disease) stage 3, GFR 30-59 ml/min Code(s): N18.3 - CHRONIC KIDNEY DISEASE, STAGE 3 (MODERATE) Status: Acute (2) Depression Code(s): F32.9 - MAJOR DEPRESSIVE DISORDER, SINGLE EPISODE, UNSPECIFIED Status : Acute (3) HHNC (hyperglycemic hyperosmolar nonketotic coma) Code(s): E11.01 - TYPE 2 DIABETES MELLITUS WITH HYPEROSMOLARITY WITH COMA Status: Acute (4) HTN (hypertension) Code(s): I10 - ESSENTIAL (PRIMARY) HYPERTENSION Status: Acute (5) Hypothyroid Code(s): E03.9 - HYPOTHYROIDISM, UNSPECIFIED Status: Acute (6) Malignant neoplasm of breast (female) Code(s): C50.919 - MALIGNANT NEOPLASM OF UNSP SITE OF UNSPECIFIED FEMALE BREAST Status: Acute (7) Secondary malignant neoplasm of bone and bone marrow Code(s): C79.51 - SECONDARY MALIGNANT NEOPLASM OF BONE Status: Acute - Plan Plan: Hyperosmolar Hyperglycemia 2/2 Adverse Drug Reaction - lantus 10 units AM/10 units PM - continue mild sliding scale today. - ABG wnl - Hold home metformin, may restart on d/c - glucose checks q4h - Piqray w/ known side effect of hyperglycemia Stage IV Breast Cancer - Tramadol for bone mets - Hold Piqray - Will discuss with onc for ongoing treatment. Currently getting radiation. MATHIEU on CKD III - improving w/ IV fluids. - Renal U/S w/ renal calcs, no acute Chronic medical conditions: Hypothyroid Hypertension Depression T2DM - Continue home medications Diet: Diabetic diet, CC. IVF: LR at 125 mL/hr Code: DNAR VTE: Heparin Dispo: stable on medical unit. If tolerating PO, may consider d/c today. PCP: Dr. Soliman - [facility] Addendum - Attending - Attending Attestation Date/Time: 12/20/19 1052 I personally evaluated the patient and discussed the management with Dr. Reynoso. I agree with the History, Examination, Assessment and Plan documented above with any addition or exceptions noted below. Patient here for more a hyperglycemic state due to her chemo regimen. Her sugars are improved on Insulin. Will perform diabetic and insulin teaching today and monitor blood sugars, hopefully she can make quick turnaround and home in next 1-2 days.
[2019-12-20] MEDS ORDERED: FOLIC ACID PO SCH (09:00)
[2019-12-20] MEDS ORDERED: D3 PO SCH (09:00)
[2019-12-20] MEDS ORDERED: Insulin Glargine 10 UNITS in Pre-Filled Syringe SC SCH (09:00)
[2019-12-20] MEDS ORDERED: COLLAGEN HYDROLY PO SCH (09:00)
[2019-12-20] MEDS: PARoxetine CR 12.5 MG TAB PO SCH (09:49)
[2019-12-20] MEDS: Amlodipine 5 MG TAB PO SCH (09:49)
[2019-12-20] MEDS: Cyanocobalamin (Vitamin B-12) 1,000 MCG TAB PO SCH (09:50)
[2019-12-20] MEDS: Heparin 5,000 UNITS/ML VIAL SC SCH ×3 (09:50→20:18)
[2019-12-20 09:54] LABS: Hemoglobin A1c 7.6 % (4.0-6.0)
[2019-12-20] MEDS: Ferrous Sulfate 325 MG TAB PO SCH (13:10)
[2019-12-20] MEDS: Insulin Glargine 10 UNITS in Pre-Filled Syringe SC SCH (20:19)
[2019-12-20] MEDS: Pravastatin Sodium 20 MG TAB PO SCH (20:20)
[2019-12-20] MEDS: risperiDONE 0.25 MG TAB PO SCH (20:20)
[2019-12-20] MEDS ORDERED: Nortriptyline HCl 25 MG CAP PO SCH (21:00)
[2019-12-20] MEDS: Acetaminophen 325 MG TAB PO PRN (21:58)
[2019-12-21] MEDS: Lactated Ringer's 1,000 ML IV SCH (04:15)
[2019-12-21 05:54] LABS: #Basophils 0.1 thou/uL (0.0-0.2); #Eosinphils 0.1 thou/uL (0.0-0.7); #Lymphocytes 1.2 thou/uL (1.20-3.40); #Monocytes 0.5 thou/uL (0.11-0.59); #Neutrophils 1.7 thou/uL (1.40-6.50); %Basophils 2.4 % (0.0-1.0); %Eosinophils 2.2 % (0.0-10.0); %Lymphocytes 33.6 % (21.0-51.0); %Monocytes 13.6 % (0.0-10.0); %Neutrophils 48.2 % (42.0-75.0); Hemoglobin 10.4 g/dL (12.0-16.0); Mean Corpuscular HGB CONC 34.1 g/dL (32.0-36.0); Mean Corpuscular Hemoglobin 36.5 pg (27.0-31.0); Mean Platelet Volume 7.4 fL (7.4-10.4); Platelet Count 150 thou/uL (130-400); RBC Distribution Width 13.9 % (11.5-14.5); Red Blood Cell (RBC) Count 2.84 mill/uL (4.20-5.40); White Blood Cell (WBC) Count 3.6 thou/uL (4.8-10.8)
[2019-12-21] MEDS: Levothyroxine Sodium 75 MCG TAB PO SCH (06:01)
[2019-12-21 06:13] LABS: Anion Gap 11 mmol/L (10-20); BUN (Urea Nitrogen) 6 mg/dL (9.8-20.1); Calc. Creatinine Clearance 73 mL/min (70-130); Calcium 8.9 mg/dL (7.8-10.44); Carbon Dioxide 26 mmol/L (23-31); Chloride 105 mmol/L (98-107); Estimated GFR-MDRD 59; Glucose 195 mg/dL (80-115); Potassium 3.5 mmol/L (3.5-5.1); Sodium 138 mmol/L (136-145)
--- NOTE | 2019-12-21 06:26 | PDOC.FM ---
- Subjective Subjective: Pt denies pain, N/V today. Ate well yesterday. Denies dysuria. Cannot remember if anyone came by to teach her about insulin yesterday. She again asks if she might go home today. - Objective MAR Reviewed: Yes Vital Signs & Weight: Vital Signs (12 hours) Temp Pulse Resp BP Pulse Ox 12/21/19 04:00 97.9 F 80 18 137/68 93 L 12/21/19 00:00 97.5 F L 84 18 149/73 H 92 L 12/20/19 20:00 98.1 F 78 18 155/73 H 96 Weight Admit Weight 80.456 kg Weight 80.456 kg I&O: 12/19/19 12/20/19 12/21/19 06:59 06:59 06:59 Intake Total 1000 Output Total 900 Balance 100 Result Diagrams: 12/21/19 05:39 12/21/19 05:39 Phys Exam - Physical Examination Constitutional: NAD Respiratory: no wheezing, clear to auscultation bilateral Cardiovascular: RRR (same 1/6 systolic murmur heard ) Gastrointestinal: soft, no distention, positive bowel sounds mild TTP over RLQ and LLQ Musculoskeletal: no edema Psychiatric: normal affect, A&O x 3 Dx/Plan (1) CKD (chronic kidney disease) stage 3, GFR 30-59 ml/min Code(s): N18.3 - CHRONIC KIDNEY DISEASE, STAGE 3 (MODERATE) Status: Acute (2) Depression Code(s): F32.9 - MAJOR DEPRESSIVE DISORDER, SINGLE EPISODE, UNSPECIFIED Status : Acute (3) HHNC (hyperglycemic hyperosmolar nonketotic coma) Code(s): E11.01 - TYPE 2 DIABETES MELLITUS WITH HYPEROSMOLARITY WITH COMA Status: Acute (4) HTN (hypertension) Code(s): I10 - ESSENTIAL (PRIMARY) HYPERTENSION Status: Acute (5) Hypothyroid Code(s): E03.9 - HYPOTHYROIDISM, UNSPECIFIED Status: Acute (6) Malignant neoplasm of breast (female) Code(s): C50.919 - MALIGNANT NEOPLASM OF UNSP SITE OF UNSPECIFIED FEMALE BREAST Status: Acute (7) Secondary malignant neoplasm of bone and bone marrow Code(s): C79.51 - SECONDARY MALIGNANT NEOPLASM OF BONE Status: Acute - Plan Plan: Plan: Hyperosmolar Hyperglycemia 2/2 Adverse Drug Reaction - lantus 10 units AM/10 units PM. May increase lantus dose. - received 18 units humalog yesterday. - Hold home metformin, may restart on d/c. - glucose checks q4h - Piqray w/ known side effect of hyperglycemia. Effect may last for up to 3 weeks. Likely will discharge on insulin. Stage IV Breast Cancer, mets to bone - Tramadol for bone mets - Hold Piqray. - Spoke w/ cancer clinic. They would like to see her as outpatient next week. MATHIEU on CKD III, improved - Creatinine back to baseline. D/C IVF. Chronic medical conditions: Hypothyroid Hypertension Depression T2DM - Continue home medications Diet: Diabetic diet, CC. IVF: SL. Oral intake. Code: DNAR VTE: Heparin Dispo: stable on medical unit Addendum - Attending - Attending Attestation Date/Time: 12/21/19 5000 I personally evaluated the patient and discussed the management with Dr. Reynoso. I agree with the History, Examination, Assessment and Plan documented above with any addition or exceptions noted below. Patient improved. Escalating insulin therapy and likely stable for discharge if feeling well and comfortable with insulin admin at home. Will need close follow up outpatient setting.
[2019-12-21] MEDS: Acetaminophen 325 MG TAB PO PRN (08:21)
[2019-12-21] MEDS: Amlodipine 5 MG TAB PO SCH (08:22)
[2019-12-21] MEDS: Ferrous Sulfate 325 MG TAB PO SCH (08:22)
[2019-12-21] MEDS: Cyanocobalamin (Vitamin B-12) 1,000 MCG TAB PO SCH (08:22)
[2019-12-21] MEDS: PARoxetine CR 12.5 MG TAB PO SCH (08:22)
[2019-12-21] MEDS: Heparin 5,000 UNITS/ML VIAL SC SCH ×2 (08:23→15:13)
[2019-12-21] MEDS ORDERED: Insulin Glargine 15 UNITS in Pre-Filled Syringe 1 EACH SC SCH (09:00)
[2019-12-21] MEDS ORDERED: Cepastat Lozenges 1 LOZ PO PRN (10:26)
[2019-12-21 11:37] VITALS: BP 130/77; TEMP 98.2
--- NOTE | 2019-12-23 11:54 | DIS ---
DATE OF ADMISSION: 12/19/2019 DATE OF DISCHARGE: 12/21/2019 ADMITTING ATTENDING: Marshall Ledbetter MD DISCHARGE ATTENDING: Anthony Mckeon MD RESIDENT: Adwoa Reynoso MD CONSULTS: None. PROCEDURES: 1. Chest x-ray, impression, no acute cardiopulmonary abnormality. Diffuse osteoblastic metastatic disease. 2. Renal ultrasound, impression, possible left renal calcifications. PRIMARY DIAGNOSES: 1. Hyperosmolar hyperglycemic state. 2. Adverse medication reaction. 3. Acute kidney injury on chronic kidney disease, stage 3. 4. Stage IV metastatic breast cancer. SECONDARY DIAGNOSES: 1. Hypothyroidism. 2. Hypertension. 3. Depression. 4. Type 2 diabetes. DISCHARGE MEDICATIONS: 1. Lantus 17 units subcutaneously twice daily. 2. Disposable needles to be used twice daily for insulin injection. 3. Risperidone 0.5 mg p.o. at bedtime. 4. Protonix 40 mg p.o. daily. 5. Pravastatin 20 mg p.o. at bedtime. 6. Paroxetine 25 mg p.o. daily. 7. Nortriptyline 25 mg p.o. at bedtime. 8. Methylcobalamin (active B12) 1000 mcg p.o. daily. 9. Levothyroxine 75 mcg p.o. daily. 10. Metformin 500 mg p.o. twice daily with meals. 11. Amlodipine 2.5 mg p.o. daily. DISCONTINUED MEDICATIONS: Piqray chemotherapy agents. HISTORY OF PRESENT ILLNESS AND HOSPITAL COURSE: This is a 69-year-old female with past medical history of stage IV breast cancer with metastasis to her bones and type 2 diabetes, presented to the emergency room with elevated blood sugars and mental status changes. The patient had noticed that her sugars were rising over the past couple of days, and her monitor today read "T6." Her boyfriend tried to check his sugar on the monitor to see if it was broken and her sugar read a normal value. They then called their oncologist and PCP go to the emergency room. The patient had started a new chemotherapy drug called Piqray, which have warning for hyperglycemia besides feeling like her brain was foggy. The patient had no other complaints. In the emergency room, the patient received a liter of normal saline and 5 units of subcutaneous insulin. The patient's laboratory values on admission consisted of a normal white blood count, hemoglobin and hematocrit after fluid resuscitation, her hemoglobin was 10.4 and her MCV was 106. Arterial blood gas was noted to be normal with a pH of 7.36, a bicarb of 23, a pCO2 of 41, and a pO2 of 67. The patient did not have an increased anion gap on admission. Her creatinine was above baseline at 1.93 with a GFR of 26, her baseline is usually closer to 1 with a GFR in the 50s. The patient's sodium was 127, potassium 3.8, and her glucose was 620. There was no urinalysis indicated. There was no infection. The patient was admitted to the medical floor and was given subcutaneous Lantus and Humalog sliding scale. She was given 10 units of Lantus at night and then in the morning, her insulin was titrated up. Her sugars came down into the 200s and she was desiring to go home after having precision printing worker to try to inject her on insulin. She was discharged in stable condition with instructions to closely follow up with her Oncology and primary care provider in 1 week for repeat basic metabolic panel. DISPOSITION: Stable. DISCHARGE INSTRUCTIONS: 1. Location: Home. 2. Diet: Diabetic diet. 3. Activity: As tolerated. 4. Followup: Follow up with primary care provider and oncologist in 1 week. Needs a repeat BMP and titration of insulin dose in 1 week as we would expect the patient's insulin requirements decrease as the medication Piqray leads her system. Job ID: [id number]
== END 2019-12-21 16:04 | disposition home or self-care (01) | DRG 638 ==
LOC: ERS 14:15 → T4-B 17:00
PROVIDERS: ADMIT Student in an Organized Health Care Education/Training Program; ATTEND Student in an Organized Health Care Education/Training Program
DX: E11.65 Type 2 diabetes mellitus with hyperglycemia (principal); C79.51 Secondary malignant neoplasm of bone; N17.9 Acute kidney failure, unspecified; C50.919 Malignant neoplasm of unspecified site of unspecified female breast; K21.9 Gastro-esophageal reflux disease without esophagitis; E03.9 Hypothyroidism, unspecified; M19.90 Unspecified osteoarthritis, unspecified site; T50.995A Adverse effect of other drugs, medicaments and biological substances, initial encounter; I12.9 Hypertensive chronic kidney disease with stage 1 through stage 4 chronic kidney disease, or unspecified chronic kidney disease; E11.22 Type 2 diabetes mellitus with diabetic chronic kidney disease; N18.3 Chronic kidney disease, stage 3 (moderate); M79.7 Fibromyalgia; F32.9 Major depressive disorder, single episode, unspecified; Z98.42 Cataract extraction status, left eye; Z98.41 Cataract extraction status, right eye; Z90.710 Acquired absence of both cervix and uterus; Z90.49 Acquired absence of other specified parts of digestive tract; Z79.4 Long term (current) use of insulin
CPT/HCPCS: 36415; 36416; 71045; 76770; 80048; 80053; 81003; 81015; 82010; 82805; 83036; 83735; 83930; 84100; 85025; 96360; J1644; J1815

== ENCOUNTER 2020-01-09 13:26 | Day surgery (SDC) | payer MEDICARE, MEDICAID ==
[2020-01-09] MEDS ORDERED: Sodium Chloride 0.9% 20 ML ONE (13:35)
[2020-01-09 14:58] VITALS: BP 158/70; TEMP 97.9
== END 2020-01-09 15:02 | disposition home or self-care (01) ==
LOC: ONC/OP 13:26
PROVIDERS: ATTEND Internal Medicine Medical Oncology
DX: Z51.11 Encounter for antineoplastic chemotherapy (principal); C50.412 Malignant neoplasm of upper-outer quadrant of left female breast
CPT/HCPCS: 80053; 82248; 83615; 84100; 84550; 96367; 96402; J1100; J1200; J3489; J3490; J9395

== ENCOUNTER 2020-01-18 20:56 | Emergency (ER) | payer MEDICARE, MEDICAID ==
--- NOTE | 2020-01-18 22:44 | RAD ---
XR Foot Rt 3 View STANDARD HISTORY: Right foot pain FINDINGS: There are incomplete fractures involving the proximal shaft of the fifth metatarsal.
--- NOTE | 2020-01-18 23:47 | ULT ---
EXAM: Right lower extremity venous Doppler US HISTORY: Right lower extremity edema and pain FINDINGS: Grayscale, color-flow, Doppler evaluation, spectral analysis of the right lower extremity venous stru ctures is performed with 2-D imaging. The right common femoral, superficial femoral, popliteal, posterior tibial, proximal greater saphenous and profunda femoral veins are imaged. There is normal luminal compressibility, flow, and augmentation the visualized deep venous structures of the right lower extremity. IMPRESSION: No evidence of a deep vein thrombosis in the right lower extremity.
== END 2020-01-19 00:55 | disposition home or self-care (01) ==
LOC: ERS 20:56
DX: S92.351A Displaced fracture of fifth metatarsal bone, right foot, initial encounter for closed fracture (principal); C50.912 Malignant neoplasm of unspecified site of left female breast; C79.51 Secondary malignant neoplasm of bone; E11.9 Type 2 diabetes mellitus without complications; I10 Essential (primary) hypertension; X58.XXXA Exposure to other specified factors, initial encounter
CPT/HCPCS: 36416

== ENCOUNTER 2020-02-05 13:59 | Day surgery (SDC) | payer MEDICARE, MEDICAID ==
[2020-02-05 14:15] VITALS: BP 186/74; TEMP 98.5
== END 2020-02-05 16:09 | disposition home or self-care (01) ==
LOC: ONC/OP 13:59
PROVIDERS: ATTEND Internal Medicine Medical Oncology
DX: Z51.11 Encounter for antineoplastic chemotherapy (principal); C50.412 Malignant neoplasm of upper-outer quadrant of left female breast; Z17.0 Estrogen receptor positive status [ER+]
CPT/HCPCS: 80053; 82248; 83615; 84100; 84550; 96402; J9395

== ENCOUNTER 2020-03-05 13:46 | Day surgery (SDC) | payer MEDICARE, MEDICAID | END 2020-03-05 14:09 | disposition home or self-care (01) | LOC: ONC/OP 13:46 | PROVIDERS: ATTEND Internal Medicine Medical Oncology | DX: C50.412 Malignant neoplasm of upper-outer quadrant of left female breast (principal); E11.9 Type 2 diabetes mellitus without complications; I10 Essential (primary) hypertension; F32.9 Major depressive disorder, single episode, unspecified; M79.7 Fibromyalgia; Z17.0 Estrogen receptor positive status [ER+]; Z79.84 Long term (current) use of oral hypoglycemic drugs; Z79.899 Other long term (current) drug therapy | CPT/HCPCS: 80053; 82248; 83615; 84100; 84550; 96402; J9395 ==

== ENCOUNTER 2020-03-05 14:23 | Outpatient (CLI) | payer MEDICARE, MEDICAID ==
--- NOTE | 2020-03-05 16:06 | ULT ---
VENOUS DOPPLER ULTRASOUND OF THE LEFT LOWER EXTREMITY: 03/05/20 HISTORY: Pain in the left leg. Left lower extremity pain and edema. TECHNIQUE: Ko scale ultrasound with color flow and spectral Doppler imaging of the deep venous system of the l eft lower extremity is performed. FINDINGS: There is good flow, compression and augmentation noted in the common femoral, femoral, deep femoral, popliteal and greater saphenous veins. IMPRESSION: No evidence of DVT in the left lower extremity. POS: AH
== END 2020-03-05 14:24 | disposition home or self-care (01) ==
LOC: BICULT 14:23
PROVIDERS: ATTEND Internal Medicine Medical Oncology
DX: R60.0 Localized edema (principal); M79.605 Pain in left leg

== ENCOUNTER 2020-03-30 14:58 | Outpatient (CLI) | payer MEDICARE, MEDICAID ==
--- NOTE | 2020-03-30 15:51 | MMO ---
Bilateral MAMMO Bilat Screen [facility]. CLINICAL HISTORY: Patient is 69 years old and is seen for screening. The patient has no family history of breast cancer. The patient has a history of Ultrasound guided core biopsy procedure revealed invasive lobular left breast carcinoma in June, and Excisional biopsy procedure revealed invasive Adenocarcinoma in the left breast in June,. The patient has a history of left Ultrasound Guided Core Biopsy in June, and left Lumpectomy in 2005 - malignant. VIEWS: The views performed were: bilateral craniocaudal with tomosynthesis and bilateral mediolateral oblique with tomosynthesis. FILMS COMPARED: The present examination has been compared to prior imaging studies performed at [facility] on 03/14/2016, 03/16/2017, 03/19/2018 and 03/27/2019. This study has been interpreted with the assistance of computer-aided detection. MAMMOGRAM FINDINGS: The breasts are heterogeneously dense, which could obscure a lesion on mammography. Benign calcifications are noted bilaterally. There are no suspicious masses, suspicious calcifications, or new areas of architectural distortion. IMPRESSION: THERE IS NO MAMMOGRAPHIC EVIDENCE OF MALIGNANCY. A ROUTINE FOLLOW-UP MAMMOGRAM IN 1 YEAR IS RECOMMENDED. THE RESULTS OF THIS EXAM WERE SENT TO THE PATIENT. ACR BI-RADS Category 2 - Benign finding MAMMOGRAPHY NOTE: 1. A negative mammogram report should not delay a biopsy if a dominant of clinically suspicious mass is present. 2. Approximately 10% to 15% of breast cancers are not detected by mammography. 3. Adenosis and dense breasts may obscure an underlying neoplasm. Reported by: LIVE LIPSCOMB MD Electonically Signed: [id number]
== END 2020-03-30 14:59 | disposition home or self-care (01) ==
LOC: BICMAMMO 14:58
PROVIDERS: ATTEND Internal Medicine Medical Oncology
DX: Z12.31 Encounter for screening mammogram for malignant neoplasm of breast (principal); Z85.3 Personal history of malignant neoplasm of breast; Z98.890 Other specified postprocedural states
CPT/HCPCS: 77063; 77067

== ENCOUNTER 2020-04-02 14:09 | Day surgery (SDC) | payer MEDICARE, MEDICAID ==
[~2020-04-02 14:09] MED LIST changes: -Dexamethasone 10 MG/ML VIAL SLOW IVP SCH; +Dexamethasone Sod Phosphate 6 MG in Sodium Chloride 0.9% 50 ML IVPB SCH
[2020-04-02 15:06] VITALS: BP 180/72
[2020-04-02] MEDS ORDERED: Sodium Chloride 0.9% 20 ML ONE (15:10)
== END 2020-04-02 15:51 | disposition home or self-care (01) ==
LOC: ONC/OP 14:09
PROVIDERS: ATTEND Internal Medicine Medical Oncology
DX: Z51.11 Encounter for antineoplastic chemotherapy (principal); C50.412 Malignant neoplasm of upper-outer quadrant of left female breast
CPT/HCPCS: 96367; 96375; 96401; J1100; J1200; J3489; J3490; J9395

== ENCOUNTER 2020-04-14 07:17 | Outpatient (CLI) | payer MEDICARE, MEDICAID ==
--- NOTE | 2020-04-14 09:27 | PET ---
EXAM: PET/CT HISTORY: History of breast cancer with osseous metastatic disease TECHNIQUE: PET scanning with CT attenuation correction was performed from the base of the brain to the proximal thighs following the intravenous administration of 12.6 millicuries [id number]. COMPARISON: PET/CT dated October 03, 2019 and left lower extremity Doppler venous ultrasound dated 2019 FINDINGS: Biodistribution:The biodistribution for the exam appears acceptable. Head and neck: There is appropriate background activity within the brain. No hypermetabolic lymphaden opathy or masses identified. Thorax: No hypermetabolic pulmonary lesion, pleural effusion or lymphadenopathy is present. Abdomen and pelvis: There is expected background activity within the GI and systems.No hypermetabo lic mass, lymphadenopathy or ascites is identified. There is a stable non hypermetabolic 1.9 cm right adrenal lesion. Osseous structures and skin: No hypermetabolic skin or osseous lesion is identified. There is diffuse osteoblastic metastatic disease. Previously seen hypermetabolic lesions within the right mandible, proximal right humerus, spine, pelvis, sacrum and proximal femurs do not demonstrate hypermetabolic u ptake on the current exam. There is enlargement and subcutaneous edematous change involving the visualized aspects of the left lower extremity. There was no evidence of DVT seen on a Doppler venous ultrasound left flexion on March 05, 2020. No definite central obstructing mass is evident within the visualized pelvis. IMPRESSION: Abnormal PET/CT. 1. Findings consistent with response to therapy. There is been resolution of the hypermetabolic activ ity involving the osteoblastic metastatic lesions of the axial and appendicular skeleton. Diffuse sclerosis consistent with prior osteoblastic metastatic disease remains. 2. No evidence to suggest hypermetabolic metastatic disease in the chest, abdomen and pelvis 3. Hypertrophy and soft tissue edema involving the left leg. Recommend repeat Doppler venous ultrasou nd the left portion mid to evaluate for deep venous thrombosis.
== END 2020-04-14 07:18 | disposition home or self-care (01) ==
LOC: PET 07:17
PROVIDERS: ATTEND Internal Medicine Medical Oncology
DX: C50.919 Malignant neoplasm of unspecified site of unspecified female breast (principal); C79.51 Secondary malignant neoplasm of bone; M79.89 Other specified soft tissue disorders; R93.89 Abnormal findings on diagnostic imaging of other specified body structures
CPT/HCPCS: 78815; A9552

== ENCOUNTER 2020-06-11 12:39 | Day surgery (SDC) | payer MEDICARE, MEDICAID | END 2020-06-11 13:23 | disposition home or self-care (01) | LOC: ONC/OP 12:39 | PROVIDERS: ATTEND Internal Medicine Medical Oncology | DX: C50.412 Malignant neoplasm of upper-outer quadrant of left female breast (principal); I89.0 Lymphedema, not elsewhere classified; Z79.810 Long term (current) use of selective estrogen receptor modulators (SERMs) | CPT/HCPCS: 80053; 82248; 83615; 84100; 84550; 96402; J9395 ==

== ENCOUNTER 2020-07-09 13:44 | Day surgery (SDC) | payer MEDICARE, MEDICAID ==
[~2020-07-09 13:44] MED LIST changes: +Dexamethasone 6 MG in Sodium Chloride 0.9% 50 ML IVPB SCH
[2020-07-09] MEDS ORDERED: Sodium Chloride 0.9% 20 ML ONE (13:50)
[2020-07-09 13:57] VITALS: BP 134/62; TEMP 98.2
== END 2020-07-09 15:46 | disposition home or self-care (01) ==
LOC: ONC/OP 13:44
PROVIDERS: ATTEND Internal Medicine Medical Oncology
DX: Z51.11 Encounter for antineoplastic chemotherapy (principal); C50.412 Malignant neoplasm of upper-outer quadrant of left female breast; I89.0 Lymphedema, not elsewhere classified
CPT/HCPCS: 36415; 80053; 82248; 83615; 84100; 84550; 96365; 96402; J1100; J1200; J3489; J3490; J9395

== ENCOUNTER 2020-08-06 09:23 | Day surgery (SDC) | payer MEDICARE, MEDICAID ==
[2020-08-06 09:29] VITALS: TEMP 97.6
[2020-08-06 09:31] VITALS: BP 140/60
== END 2020-08-06 09:41 | disposition home or self-care (01) ==
LOC: ONC/OP 09:23
PROVIDERS: ATTEND Internal Medicine Medical Oncology
DX: Z51.11 Encounter for antineoplastic chemotherapy (principal); C50.412 Malignant neoplasm of upper-outer quadrant of left female breast; I89.0 Lymphedema, not elsewhere classified; Z79.818 Long term (current) use of other agents affecting estrogen receptors and estrogen levels
CPT/HCPCS: 80053; 82248; 82728; 83540; 83550; 83615; 83735; 84100; 84550; 96402; J9395

== ENCOUNTER 2020-08-25 14:01 | Day surgery (SDC) | payer MEDICARE, MEDICAID ==
[~2020-08-25 14:01] MED LIST changes: -Dexamethasone 6 MG in Sodium Chloride 0.9% 50 ML IVPB SCH; -Dexamethasone Sod Phosphate 6 MG in Sodium Chloride 0.9% 50 ML IVPB SCH; +Ferumoxytol (NON ERSD) 510 MG in Sodium Chloride 0.9% 250 ML 150 ML IVPB SCH; -Zoledronic Acid 4 MG in Sodium Chloride 0.9% 100 ML IVPB SCH; -diphenhydrAMINE 25 MG in Sodium Chloride 0.9% 50 ML IVPB SCH
[2020-08-25 14:13] VITALS: BP 139/66; TEMP 98.1
== END 2020-08-25 15:13 | disposition home or self-care (01) ==
LOC: ONC/OP 14:01
PROVIDERS: ATTEND Internal Medicine Medical Oncology
DX: N18.4 Chronic kidney disease, stage 4 (severe) (principal); D63.1 Anemia in chronic kidney disease; D50.8 Other iron deficiency anemias; C50.412 Malignant neoplasm of upper-outer quadrant of left female breast; I89.0 Lymphedema, not elsewhere classified
CPT/HCPCS: 96365; J7050; Q0138

== ENCOUNTER 2020-09-02 14:41 | Day surgery (SDC) | payer MEDICARE, MEDICAID | END 2020-09-02 15:40 | disposition home or self-care (01) | LOC: ONC/OP 14:41 | PROVIDERS: ATTEND Internal Medicine Medical Oncology | DX: Z51.11 Encounter for antineoplastic chemotherapy (principal); C50.412 Malignant neoplasm of upper-outer quadrant of left female breast; I89.0 Lymphedema, not elsewhere classified; N18.4 Chronic kidney disease, stage 4 (severe); D63.1 Anemia in chronic kidney disease; D50.8 Other iron deficiency anemias; Z79.810 Long term (current) use of selective estrogen receptor modulators (SERMs) | CPT/HCPCS: 36415; 80053; 82248; 82378; 82728; 83615; 84100; 84550; 86300; 96365; 96402; J7050; J9395; Q0138 ==

== ENCOUNTER 2021-01-14 08:07 | Outpatient (CLI) | payer MEDICARE, MEDICAID | END 2021-01-14 08:08 | disposition home or self-care (01) | LOC: PET 08:07 | PROVIDERS: ATTEND Internal Medicine Medical Oncology | DX: C50.412 Malignant neoplasm of upper-outer quadrant of left female breast (principal); C79.51 Secondary malignant neoplasm of bone; D50.8 Other iron deficiency anemias; N18.4 Chronic kidney disease, stage 4 (severe); D63.1 Anemia in chronic kidney disease; I89.0 Lymphedema, not elsewhere classified | CPT/HCPCS: 78815; A9552 ==

== ENCOUNTER 2021-02-10 15:42 | Outpatient (CLI) | payer MEDICARE, MEDICAID | END 2021-02-10 15:43 | disposition home or self-care (01) | LOC: BICRAD 15:42 | PROVIDERS: ATTEND Family Medicine | DX: M79.672 Pain in left foot (principal); S92.352A Displaced fracture of fifth metatarsal bone, left foot, initial encounter for closed fracture ==

== ENCOUNTER 2021-03-11 15:16 | Inpatient (IN) | payer MEDICARE, MEDICAID ==
[2021-03-11] MEDS ORDERED: Sodium Chloride 0.9% 1,000 ML IV SCH (16:00)
[2021-03-11 16:02] LABS: #Basophils 0.1 thou/uL (0.0-0.2); #Eosinphils 0.3 thou/uL (0.0-0.7); #Lymphocytes 1.9 thou/uL (1.20-3.40); #Monocytes 1.2 thou/uL (0.11-0.59); #Neutrophils 6.3 thou/uL (1.40-6.50); %Eosinophils 3.3 % (0.0-10.0); %Lymphocytes 19.5 % (21.0-51.0); %Neutrophils 64.2 % (42.0-75.0); Hemoglobin 12.2 g/dL (12.0-16.0); Mean Corpuscular HGB CONC 34.7 g/dL (32.0-36.0); Mean Corpuscular Hemoglobin 38.7 pg (27.0-31.0); Mean Platelet Volume 6.9 fL (7.4-10.4); Platelet Count 204 thou/uL (130-400); RBC Distribution Width 16.7 % (11.5-14.5); Red Blood Cell (RBC) Count 3.14 mill/uL (4.20-5.40); White Blood Cell (WBC) Count 9.8 thou/uL (4.8-10.8)
[2021-03-11] MEDS ORDERED: Diltiazem 125 MG in Sodium Chloride 0.9% 100 ML IVPB SCH (16:15)
[2021-03-11 16:17] LABS: Anisocytosis SLIGHT = 6-15 cells (100X) (0-5/hpf); MDiff Complete? YES; Macrocytosis SLIGHT = 6-15 cells (100X) (0-5/hpf); Platelet Morphology Comment Appears Adequate
[2021-03-11 16:18] LABS: ALT (SGPT) 14 U/L (8-55); AST (SGOT) 20 U/L (5-34); Albumin 3.7 g/dL (3.4-4.8); Alkaline Phosphatase 123 U/L (40-110); Anion Gap 14 mmol/L (10-20); BUN (Urea Nitrogen) 24 mg/dL (9.8-20.1); Bilirubin, Total 0.6 mg/dL (0.2-1.2); Calc. Creatinine Clearance 0 mL/min (70-130); Calcium 10.3 mg/dL (7.8-10.44); Carbon Dioxide 20 mmol/L (23-31); Chloride 105 mmol/L (98-107); Globulin 2.8 g/dL (2.4-3.5); Glucose 128 mg/dL (80-115); Protein, Total 6.5 g/dL (5.8-8.1); Sodium 134 mmol/L (136-145)
[2021-03-11] MEDS ORDERED: Ondansetron ODT 4 MG TAB PO PRN (17:02)
[2021-03-11] MEDS ORDERED: Dextrose 50% Abboject 50 ML SYRINGE SLOW IVP PRN (17:33)
[2021-03-11] MEDS ORDERED: Dextrose 5% in Water 1,000 ML IV PRN (17:33)
[2021-03-11 17:35] LABS: Hemoglobin A1c 5.5 % (4.0-6.0)
[2021-03-11] MEDS ORDERED: Enoxaparin Sodium 80 MG/0.8 ML SYRINGE ONE (17:57)
[2021-03-11 20:29] LABS: Troponin I Less than 0.010 ng/mL (< 0.028)
[2021-03-11] MEDS ORDERED: Fluticasone Propionate Nasal Spray 16 gm Bottle NASAL PRN (21:54)
[2021-03-11 22:33] LABS: Troponin I 0.011 ng/mL (< 0.028)
[2021-03-11 22:40] VITALS: BMI 31.0
[2021-03-12 04:47] LABS: #Basophils 0.1 thou/uL (0.0-0.2); #Eosinphils 0.4 thou/uL (0.0-0.7); #Lymphocytes 2.4 thou/uL (1.20-3.40); #Neutrophils 4.8 thou/uL (1.40-6.50); %Basophils 1.6 % (0.0-1.0); %Eosinophils 4.8 % (0.0-10.0); %Lymphocytes 27.5 % (21.0-51.0); %Monocytes 11.1 % (0.0-10.0); Hemoglobin 10.8 g/dL (12.0-16.0); Mean Corpuscular HGB CONC 33.9 g/dL (32.0-36.0); Mean Corpuscular Hemoglobin 38.1 pg (27.0-31.0); Platelet Count 196 thou/uL (130-400); RBC Distribution Width 16.7 % (11.5-14.5); Red Blood Cell (RBC) Count 2.83 mill/uL (4.20-5.40); White Blood Cell (WBC) Count 8.6 thou/uL (4.8-10.8)
[2021-03-12 05:06] LABS: Anion Gap 11 mmol/L (10-20); BUN (Urea Nitrogen) 20 mg/dL (9.8-20.1); Calc. Creatinine Clearance 46 mL/min (70-130); Calcium 9.1 mg/dL (7.8-10.44); Carbon Dioxide 20 mmol/L (23-31); Chloride 110 mmol/L (98-107); Glucose 108 mg/dL (80-115); Potassium 4.3 mmol/L (3.5-5.1); Sodium 137 mmol/L (136-145)
[2021-03-12] MEDS: Levothyroxine Sodium 75 MCG TAB PO SCH (05:18)
[2021-03-12] MEDS: Acetaminophen 325 MG TAB PO PRN ×2 (05:21→20:19)
[2021-03-12] MEDS ORDERED: PAROXETINE HCL 25 MG PO SCH (09:00)
[2021-03-12] MEDS ORDERED: Diltiazem HCl SR 90 mg Capsule PO SCH (09:00)
[2021-03-12] MEDS ORDERED: Enoxaparin Sodium 40 MG/0.4 ML SYRINGE SC SCH (09:00)
[2021-03-12] MEDS ORDERED: Amlodipine 5 MG TAB PO SCH (09:00)
[2021-03-12] MEDS ORDERED: Apixaban 2.5 MG TAB PO SCH (09:00)
[2021-03-12] MEDS: Hydrochlorothiazide 25 MG TAB PO SCH (10:03)
[2021-03-12] MEDS: Famotidine 20 MG TAB PO SCH (10:05)
[2021-03-12] MEDS: metFORMIN 500 MG TAB PO SCH ×2 (10:05→20:18)
[2021-03-12] MEDS: Lisinopril 20 MG TAB PO SCH (10:06)
[2021-03-12] MEDS: Cyanocobalamin (Vitamin B-12) 1,000 MCG TAB PO SCH (10:06)
[2021-03-12] MEDS: Diltiazem HCl SR 60 mg Capsule PO SCH ×2 (10:06→20:17)
[2021-03-12] MEDS: Dronedarone HCl 400 MG TAB PO SCH (16:48)
[2021-03-12] MEDS ORDERED: Carvedilol 3.125 MG TAB PO SCH (17:00)
[2021-03-12] MEDS: Apixaban 5 MG TAB PO SCH (20:17)
[2021-03-12] MEDS: Simvastatin 10 MG TAB PO SCH (20:18)
[2021-03-12] MEDS: Nortriptyline HCl 25 MG CAP PO SCH (20:18)
[2021-03-12] MEDS: risperiDONE 1 MG TAB PO SCH (20:18)
[2021-03-13 04:35] LABS: Hemoglobin 10.3 g/dL (12.0-16.0); Platelet Count 198 thou/uL (130-400)
[2021-03-13] MEDS: Levothyroxine Sodium 75 MCG TAB PO SCH (06:14)
[2021-03-13] MEDS: Dronedarone HCl 400 MG TAB PO SCH ×2 (08:38→16:10)
[2021-03-13] MEDS: Apixaban 5 MG TAB PO SCH ×2 (08:38→21:16)
[2021-03-13] MEDS: metFORMIN 500 MG TAB PO SCH ×2 (08:38→21:16)
[2021-03-13] MEDS: Cyanocobalamin (Vitamin B-12) 1,000 MCG TAB PO SCH (08:39)
[2021-03-13] MEDS: Hydrochlorothiazide 25 MG TAB PO SCH (08:39)
[2021-03-13] MEDS: Diltiazem HCl SR 60 mg Capsule PO SCH (08:39)
[2021-03-13] MEDS: Famotidine 20 MG TAB PO SCH (08:39)
[2021-03-13] MEDS: Lisinopril 20 MG TAB PO SCH (08:40)
[2021-03-13] MEDS: Nortriptyline HCl 25 MG CAP PO SCH (21:16)
[2021-03-13] MEDS: Simvastatin 10 MG TAB PO SCH (21:17)
[2021-03-13] MEDS: Acetaminophen 325 MG TAB PO PRN (21:17)
[2021-03-13] MEDS: risperiDONE 1 MG TAB PO SCH (21:17)
[2021-03-14 05:21] LABS: #Basophils 0.1 thou/uL (0.0-0.2); #Eosinphils 0.4 thou/uL (0.0-0.7); #Lymphocytes 2.2 thou/uL (1.20-3.40); #Neutrophils 4.4 thou/uL (1.40-6.50); %Basophils 0.8 % (0.0-1.0); %Eosinophils 5.2 % (0.0-10.0); %Lymphocytes 27.5 % (21.0-51.0); %Monocytes 12.1 % (0.0-10.0); %Neutrophils 54.3 % (42.0-75.0); Hemoglobin 10.9 g/dL (12.0-16.0); Mean Corpuscular HGB CONC 32.2 g/dL (32.0-36.0); Mean Corpuscular Hemoglobin 36.8 pg (27.0-31.0); Mean Platelet Volume 6.7 fL (7.4-10.4); Platelet Count 225 thou/uL (130-400); RBC Distribution Width 17.3 % (11.5-14.5); Red Blood Cell (RBC) Count 2.95 mill/uL (4.20-5.40)
[2021-03-14] MEDS: Levothyroxine Sodium 75 MCG TAB PO SCH (05:22)
[2021-03-14 05:35] LABS: Anion Gap 13 mmol/L (10-20); BUN (Urea Nitrogen) 20 mg/dL (9.8-20.1); Calc. Creatinine Clearance 43 mL/min (70-130); Calcium 8.9 mg/dL (7.8-10.44); Carbon Dioxide 19 mmol/L (23-31); Chloride 109 mmol/L (98-107); Glucose 106 mg/dL (80-115); Potassium 4.2 mmol/L (3.5-5.1); Sodium 137 mmol/L (136-145)
[2021-03-14] MEDS: Apixaban 5 MG TAB PO SCH ×2 (08:57→20:38)
[2021-03-14] MEDS: Cyanocobalamin (Vitamin B-12) 1,000 MCG TAB PO SCH (08:57)
[2021-03-14] MEDS: metFORMIN 500 MG TAB PO SCH ×2 (08:57→20:37)
[2021-03-14] MEDS: Famotidine 20 MG TAB PO SCH (08:57)
[2021-03-14] MEDS: Bisacodyl 5 MG TAB PO SCH (08:57)
[2021-03-14] MEDS: Dronedarone HCl 400 MG TAB PO SCH ×2 (08:57→16:32)
[2021-03-14] MEDS ORDERED: Lisinopril 5 MG TAB PO SCH (09:00)
[2021-03-14] MEDS ORDERED: HumaLOG 300 UNITS/3 ML VIAL SC PRN ×2 (10:57)
[2021-03-14] MEDS: Acetaminophen 325 MG TAB PO PRN (11:39)
[2021-03-14] MEDS: Simvastatin 10 MG TAB PO SCH (20:37)
[2021-03-14] MEDS: Nortriptyline HCl 25 MG CAP PO SCH (20:37)
[2021-03-14] MEDS: risperiDONE 1 MG TAB PO SCH (20:37)
[2021-03-15 05:10] LABS: #Basophils 0.1 thou/uL (0.0-0.2); #Eosinphils 0.4 thou/uL (0.0-0.7); #Lymphocytes 2.1 thou/uL (1.20-3.40); #Monocytes 0.9 thou/uL (0.11-0.59); #Neutrophils 4.4 thou/uL (1.40-6.50); %Eosinophils 5.6 % (0.0-10.0); %Lymphocytes 26.2 % (21.0-51.0); %Monocytes 11.7 % (0.0-10.0); %Neutrophils 55.5 % (42.0-75.0); Hemoglobin 10.5 g/dL (12.0-16.0); Mean Corpuscular HGB CONC 33.9 g/dL (32.0-36.0); Mean Corpuscular Hemoglobin 38.4 pg (27.0-31.0); Mean Platelet Volume 6.4 fL (7.4-10.4); Platelet Count 213 thou/uL (130-400); RBC Distribution Width 17.2 % (11.5-14.5); Red Blood Cell (RBC) Count 2.74 mill/uL (4.20-5.40); White Blood Cell (WBC) Count 7.9 thou/uL (4.8-10.8)
[2021-03-15 05:28] LABS: Anion Gap 14 mmol/L (10-20); BUN (Urea Nitrogen) 20 mg/dL (9.8-20.1); Calc. Creatinine Clearance 40 mL/min (70-130); Calcium 8.5 mg/dL (7.8-10.44); Carbon Dioxide 19 mmol/L (23-31); Chloride 107 mmol/L (98-107); Glucose 110 mg/dL (80-115); Potassium 4.1 mmol/L (3.5-5.1); Sodium 136 mmol/L (136-145)
[2021-03-15] MEDS: Levothyroxine Sodium 75 MCG TAB PO SCH (05:30)
[2021-03-15] MEDS ORDERED: PROPOFOL 20 ML ONE (07:50)
[2021-03-15] MEDS ORDERED: PROPOFOL 200 MG/20 ML VIAL ONE (08:58)
[2021-03-15] MEDS: Famotidine 20 MG TAB PO SCH (10:30)
[2021-03-15] MEDS: Cyanocobalamin (Vitamin B-12) 1,000 MCG TAB PO SCH (10:30)
[2021-03-15] MEDS: metFORMIN 500 MG TAB PO SCH ×2 (10:30→21:05)
[2021-03-15] MEDS: Apixaban 5 MG TAB PO SCH ×2 (10:31→21:05)
[2021-03-15] MEDS: Bisacodyl 5 MG TAB PO SCH (10:31)
[2021-03-15] MEDS: Dronedarone HCl 400 MG TAB PO SCH ×2 (10:31→17:50)
[2021-03-15] MEDS: risperiDONE 1 MG TAB PO SCH (21:05)
[2021-03-15] MEDS: Simvastatin 10 MG TAB PO SCH (21:05)
[2021-03-15] MEDS: Nortriptyline HCl 25 MG CAP PO SCH (21:05)
[2021-03-15] MEDS: Acetaminophen 325 MG TAB PO PRN (21:09)
[2021-03-16 05:15] LABS: Anion Gap 14 mmol/L (10-20); BUN (Urea Nitrogen) 22 mg/dL (9.8-20.1); Calc. Creatinine Clearance 38 mL/min (70-130); Calcium 8.8 mg/dL (7.8-10.44); Carbon Dioxide 17 mmol/L (23-31); Chloride 107 mmol/L (98-107); Glucose 110 mg/dL (80-115); Potassium 4.3 mmol/L (3.5-5.1); Sodium 134 mmol/L (136-145)
[2021-03-16 05:18] LABS: Eosinophils 7 % (0-10); Hemoglobin 10.1 g/dL (12.0-16.0); Lymphocytes 13 % (21-51); MDiff Complete? YES; Mean Corpuscular HGB CONC 34.3 g/dL (32.0-36.0); Mean Corpuscular Hemoglobin 38.8 pg (27.0-31.0); Mean Platelet Volume 6.5 fL (7.4-10.4); Metamyelocyte 1 % (0-0); Monocytes 11 % (0-10); Neutrophil 68 % (42-75); Nucleated RBC 1 % (0); Platelet Count 189 thou/uL (130-400); Platelet Morphology Comment Appears Adequate; RBC Distribution Width 17.3 % (11.5-14.5); Red Blood Cell (RBC) Count 2.61 mill/uL (4.20-5.40); White Blood Cell (WBC) Count 10.6 thou/uL (4.8-10.8)
[2021-03-16] MEDS: Levothyroxine Sodium 75 MCG TAB PO SCH (05:41)
[2021-03-16] MEDS: Famotidine 20 MG TAB PO SCH (09:35)
[2021-03-16] MEDS: Cyanocobalamin (Vitamin B-12) 1,000 MCG TAB PO SCH (09:36)
[2021-03-16] MEDS: Apixaban 5 MG TAB PO SCH (09:36)
[2021-03-16] MEDS: Acetaminophen 325 MG TAB PO PRN (09:39)
[2021-03-16 12:36] VITALS: BP 125/60; TEMP 98.4
[2021-03-16] MEDS: Bisacodyl 5 MG TAB PO SCH (15:26)
== END 2021-03-16 15:56 | disposition home health service (06) | DRG 309 ==
LOC: ERS 15:16 → 2NO 16:43
PROVIDERS: ADMIT Student in an Organized Health Care Education/Training Program; ATTEND Student in an Organized Health Care Education/Training Program
PROC: 5A2204Z Restoration of Cardiac Rhythm, Single (ICD-10-PCS; principal; 2021-03-15)
PROC: B24BZZ4 Ultrasonography of Heart with Aorta, Transesophageal (ICD-10-PCS; 2021-03-15)
DX: I48.91 Unspecified atrial fibrillation (principal); C79.51 Secondary malignant neoplasm of bone; E11.22 Type 2 diabetes mellitus with diabetic chronic kidney disease; I48.92 Unspecified atrial flutter; Z66 Do not resuscitate; N18.30 Chronic kidney disease, stage 3 unspecified; I12.9 Hypertensive chronic kidney disease with stage 1 through stage 4 chronic kidney disease, or unspecified chronic kidney disease; K21.9 Gastro-esophageal reflux disease without esophagitis; F32.9 Major depressive disorder, single episode, unspecified; E78.5 Hyperlipidemia, unspecified; E03.9 Hypothyroidism, unspecified; M79.7 Fibromyalgia; D63.1 Anemia in chronic kidney disease; C50.919 Malignant neoplasm of unspecified site of unspecified female breast; I95.9 Hypotension, unspecified; I08.1 Rheumatic disorders of both mitral and tricuspid valves; I70.0 Atherosclerosis of aorta; S92.353A Displaced fracture of fifth metatarsal bone, unspecified foot, initial encounter for closed fracture; W18.30XA Fall on same level, unspecified, initial encounter; Z79.899 Other long term (current) drug therapy; Z79.890 Hormone replacement therapy; Z79.84 Long term (current) use of oral hypoglycemic drugs; Z90.49 Acquired absence of other specified parts of digestive tract; Z90.710 Acquired absence of both cervix and uterus; Z98.49 Cataract extraction status, unspecified eye; Z90.12 Acquired absence of left breast and nipple
CPT/HCPCS: 36415; 36416; 80048; 80053; 80061; 82565; 82607; 82746; 83036; 84443; 84484; 85014; 85018; 85025; 85049; 92960; 93005; 93010; 93306; 93312; 96365; 96366; 96372; 96376; J1650; J1815; J2704; J3490

== ENCOUNTER 2021-05-06 | Outpatient (CLI) | payer MEDICARE, MEDICAID | END 2021-05-06 08:01 | disposition home or self-care (01) | DX: C50.912 Malignant neoplasm of unspecified site of left female breast (principal); C79.51 Secondary malignant neoplasm of bone | CPT/HCPCS: 78815; A9552 ==

== ENCOUNTER 2021-06-15 14:26 | Outpatient (CLI) | payer MEDICARE, MEDICAID | END 2021-06-15 14:27 | disposition home or self-care (01) | LOC: BICMAMMO 14:26 | PROVIDERS: ATTEND Student in an Organized Health Care Education/Training Program | DX: Z13.820 Encounter for screening for osteoporosis (principal); S92.355G Nondisplaced fracture of fifth metatarsal bone, left foot, subsequent encounter for fracture with delayed healing; C79.51 Secondary malignant neoplasm of bone; Z78.0 Asymptomatic menopausal state | CPT/HCPCS: 77080 ==

== ENCOUNTER 2021-07-12 15:46 | Emergency (ER) | payer MEDICARE, MEDICAID ==
[2021-07-12] MEDS ORDERED: Clindamycin 300 MG/2 ML VIAL IM SCH (17:45)
[2021-07-12] MEDS ORDERED: Clindamycin/D5W 600 MG in Premix Bag 1 BAG IVPB SCH (18:30)
[2021-07-12] MEDS ORDERED: Clindamycin 150 MG CAP ONE (18:31)
== END 2021-07-12 18:40 | disposition home or self-care (01) ==
LOC: ERS 15:46
DX: L03.116 Cellulitis of left lower limb (principal); Z79.899 Other long term (current) drug therapy; Z79.01 Long term (current) use of anticoagulants; Z79.84 Long term (current) use of oral hypoglycemic drugs; E11.9 Type 2 diabetes mellitus without complications; I10 Essential (primary) hypertension; E03.9 Hypothyroidism, unspecified; I48.91 Unspecified atrial fibrillation
CPT/HCPCS: 99283; J3490

== ENCOUNTER 2021-09-21 07:50 | Outpatient (CLI) | payer MEDICARE, MEDICAID | END 2021-09-21 07:51 | disposition home or self-care (01) | LOC: PET 07:50 | PROVIDERS: ATTEND Internal Medicine Medical Oncology | DX: C79.51 Secondary malignant neoplasm of bone (principal); C50.412 Malignant neoplasm of upper-outer quadrant of left female breast | CPT/HCPCS: 78815; A9552 ==

== ENCOUNTER 2021-11-22 08:30 | Outpatient (CLI) | payer MEDICARE, MEDICAID | END 2021-11-22 08:31 | disposition home or self-care (01) | LOC: TBSIIMAG 08:30 | PROVIDERS: ATTEND Internal Medicine Medical Oncology | DX: H53.40 Unspecified visual field defects (principal) | CPT/HCPCS: 70553 ==

== ENCOUNTER 2021-12-21 16:44 | Inpatient (IN) | payer MEDICARE, MEDICAID ==
[2021-12-21 17:40] LABS: Hemoglobin 10.9 g/dL (12.0-16.0); Mean Corpuscular HGB CONC 31.4 g/dL (32.0-36.0); Mean Corpuscular Hemoglobin 36.3 pg (27.0-31.0); Platelet Count 195 thou/uL (130-400); RBC Distribution Width 19.5 % (11.5-14.5); Red Blood Cell (RBC) Count 2.99 mill/uL (4.20-5.40); White Blood Cell (WBC) Count 8.4 thou/uL (4.8-10.8)
[2021-12-21 18:00] LABS: #Basophils 0.1 thou/uL (0.0-0.2); #Eosinphils 0.2 thou/uL (0.0-0.7); #Lymphocytes 1.1 thou/uL (1.20-3.40); #Monocytes 1.1 thou/uL (0.11-0.59); %Lymphocytes 13.4 % (21.0-51.0); %Monocytes 12.5 % (0.0-10.0); %Neutrophils 71.1 % (42.0-75.0)
[2021-12-21 18:02] LABS: ALT (SGPT) 15 U/L (8-55); AST (SGOT) 31 U/L (5-34); Albumin 3.7 g/dL (3.4-4.8); Alkaline Phosphatase 78 U/L (40-110); Anion Gap 17 mmol/L (10-20); BUN (Urea Nitrogen) 15 mg/dL (9.8-20.1); Bilirubin, Total 1.5 mg/dL (0.2-1.2); Calc. Creatinine Clearance 0 mL/min (70-130); Calcium 8.8 mg/dL (7.8-10.44); Carbon Dioxide 22 mmol/L (23-31); Chloride 101 mmol/L (98-107); Globulin 2.8 g/dL (2.4-3.5); Glucose 169 mg/dL (80-115); Potassium 4.1 mmol/L (3.5-5.1); Protein, Total 6.5 g/dL (5.8-8.1); Sodium 136 mmol/L (136-145)
[2021-12-21 18:11] LABS: Anisocytosis SLIGHT = 6-15 cells (100X) (0-5/hpf); MDiff Complete? YES; Macrocytosis SLIGHT = 6-15 cells (100X) (0-5/hpf); Platelet Morphology Comment Appears Adequate; Polychromasia SLIGHT = 2-3 cells (100X) (0-2/hpf)
[2021-12-21 18:47] LABS: Bilirubin Negative (Negative); Blood, Urine Negative (Negative); Clarity Clear (Clear); Glucose, Urine (Dipstick) Normal (Negative); Ketone, Urine Negative (Negative); Leukocyte Negative Leu/uL (Negative); Nitrite Negative (Negative); Protein, Urine (Dipstick) Negative (Neg-Trace); Specific Gravity, Urine 1.007 (1.002-1.036); Urobilinogen Normal mg/dL (Less than 2); pH, Urine 6.5 (5.0-9.0)
[2021-12-21 19:24] LABS: SARS-CoV-2 NAA Rapid Test Not Detected (NotDetected)
[2021-12-21] MEDS ORDERED: Furosemide 40 MG/4 ML VIAL ONE (20:04)
[2021-12-21] MEDS ORDERED: HumaLOG 300 UNITS/3 ML VIAL SC PRN ×2 (20:57)
[2021-12-21] MEDS ORDERED: Dextrose 5% in Water 1,000 ML IV PRN (20:57)
[2021-12-21] MEDS ORDERED: Dextrose 50% Abboject 50 ML SYRINGE SLOW IVP PRN (20:57)
[2021-12-21] MEDS ORDERED: Nortriptyline HCl 25 MG CAP PO SCH (22:45)
[2021-12-21] MEDS ORDERED: Apixaban 5 MG TAB PO SCH (22:45)
[2021-12-21] MEDS ORDERED: risperiDONE 0.25 MG TAB PO SCH (22:45)
[2021-12-21] MEDS ORDERED: Simvastatin 10 MG TAB PO SCH (22:45)
[2021-12-21] MEDS ORDERED: Diltiazem HCl CD 300 mg Capsule PO SCH (23:00)
[2021-12-21] MEDS ORDERED: PARoxetine CR 12.5 MG TAB PO SCH (23:15)
[2021-12-21] MEDS ORDERED: PARoxetine 20 MG TAB PO SCH (23:45)
[2021-12-22 01:15] VITALS: BMI 33.4
[2021-12-22 04:23] LABS: #Basophils 0.1 thou/uL (0.0-0.2); #Eosinphils 0.3 thou/uL (0.0-0.7); #Lymphocytes 1.3 thou/uL (1.20-3.40); #Monocytes 1.1 thou/uL (0.11-0.59); #Neutrophils 5.4 thou/uL (1.40-6.50); %Basophils 0.8 % (0.0-1.0); %Eosinophils 3.7 % (0.0-10.0); %Neutrophils 66.4 % (42.0-75.0); Hemoglobin 10.3 g/dL (12.0-16.0); Mean Corpuscular HGB CONC 33.3 g/dL (32.0-36.0); Mean Corpuscular Hemoglobin 38.8 pg (27.0-31.0); Mean Platelet Volume 7.1 fL (7.4-10.4); Platelet Count 169 thou/uL (130-400); RBC Distribution Width 19.3 % (11.5-14.5); Red Blood Cell (RBC) Count 2.66 mill/uL (4.20-5.40); White Blood Cell (WBC) Count 8.1 thou/uL (4.8-10.8)
[2021-12-22 04:41] LABS: Magnesium 2.1 mg/dL (1.6-2.6)
[2021-12-22 05:12] LABS: ALT (SGPT) 12 U/L (8-55); AST (SGOT) 19 U/L (5-34); Albumin 3.3 g/dL (3.4-4.8); Alkaline Phosphatase 67 U/L (40-110); BUN (Urea Nitrogen) 13 mg/dL (9.8-20.1); Bilirubin, Total 1.4 mg/dL (0.2-1.2); Calc. Creatinine Clearance 55 mL/min (70-130); Calcium 8.6 mg/dL (7.8-10.44); Carbon Dioxide 25 mmol/L (23-31); Chloride 105 mmol/L (98-107); Globulin 2.1 g/dL (2.4-3.5); Glucose 141 mg/dL (80-115); Phosphorus 4.3 mg/dL (2.3-4.7); Potassium 3.5 mmol/L (3.5-5.1); Protein, Total 5.4 g/dL (5.8-8.1); Sodium 140 mmol/L (136-145)
[2021-12-22 05:21] LABS: Anion Gap 14 mmol/L (10-20)
[2021-12-22] MEDS ORDERED: Furosemide 20 MG/2 ML VIAL SLOW IVP SCH (09:00)
[2021-12-22] MEDS ORDERED: Furosemide 40 MG/4 ML VIAL SLOW IVP SCH (09:00)
[2021-12-22] MEDS: Cholecalciferol 1,000 UNITS (25 MCG) TAB PO SCH (09:55)
[2021-12-22] MEDS: metFORMIN 500 MG TAB PO SCH (09:55)
[2021-12-22] MEDS: Levothyroxine Sodium 75 MCG TAB PO SCH (09:55)
[2021-12-22] MEDS: PARoxetine 20 MG TAB PO SCH (09:56)
[2021-12-22] MEDS: Apixaban 5 MG TAB PO SCH ×2 (09:56→20:28)
[2021-12-22] MEDS: Cyanocobalamin (Vitamin B-12) 1,000 MCG TAB PO SCH (09:56)
[2021-12-22] MEDS: Nortriptyline HCl 25 MG CAP PO SCH (20:27)
[2021-12-22] MEDS: risperiDONE 0.25 MG TAB PO SCH (20:28)
[2021-12-22] MEDS: Simvastatin 10 MG TAB PO SCH (20:28)
[2021-12-22] MEDS: Loratadine 10 MG TAB PO SCH (20:28)
[2021-12-22] MEDS ORDERED: Diltiazem HCl CD 300 mg Capsule PO SCH (21:00)
[2021-12-22] MEDS ORDERED: PARoxetine 20 MG TAB PO SCH (21:00)
[2021-12-23 07:07] LABS: #Basophils 0.1 thou/uL (0.0-0.2); #Eosinphils 0.5 thou/uL (0.0-0.7); #Lymphocytes 1.5 thou/uL (1.20-3.40); #Monocytes 1.2 thou/uL (0.11-0.59); %Basophils 0.8 % (0.0-1.0); %Eosinophils 5.6 % (0.0-10.0); %Lymphocytes 18.3 % (21.0-51.0); %Monocytes 14.2 % (0.0-10.0); %Neutrophils 61.1 % (42.0-75.0); Hemoglobin 10.6 g/dL (12.0-16.0); Mean Corpuscular HGB CONC 32.7 g/dL (32.0-36.0); Mean Corpuscular Hemoglobin 38.2 pg (27.0-31.0); Mean Platelet Volume 6.7 fL (7.4-10.4); Platelet Count 184 thou/uL (130-400); RBC Distribution Width 18.7 % (11.5-14.5); Red Blood Cell (RBC) Count 2.77 mill/uL (4.20-5.40); White Blood Cell (WBC) Count 8.3 thou/uL (4.8-10.8)
[2021-12-23 07:27] LABS: ALT (SGPT) 10 U/L (8-55); AST (SGOT) 18 U/L (5-34); Albumin 3.4 g/dL (3.4-4.8); Alkaline Phosphatase 74 U/L (40-110); Anion Gap 13 mmol/L (10-20); BUN (Urea Nitrogen) 13 mg/dL (9.8-20.1); Calc. Creatinine Clearance 53 mL/min (70-130); Calcium 8.9 mg/dL (7.8-10.44); Carbon Dioxide 26 mmol/L (23-31); Chloride 101 mmol/L (98-107); Globulin 2.6 g/dL (2.4-3.5); Glucose 150 mg/dL (80-115); Potassium 3.3 mmol/L (3.5-5.1); Sodium 137 mmol/L (136-145)
[2021-12-23] MEDS ORDERED: Enoxaparin Sodium 80 MG/0.8 ML SYRINGE SC SCH (08:15)
[2021-12-23] MEDS ORDERED: Furosemide 40 MG/4 ML VIAL SLOW IVP SCH (08:30)
[2021-12-23 08:38] LABS: MDiff Complete? YES; Macrocytosis MODERATE=16-30 cells (100X) (0-5/hpf); Polychromasia SLIGHT = 2-3 cells (100X) (0-2/hpf)
[2021-12-23] MEDS ORDERED: Potassium Chloride 20 MEQ TAB PO SCH (08:45)
[2021-12-23] MEDS: Cholecalciferol 1,000 UNITS (25 MCG) TAB PO SCH (08:46)
[2021-12-23] MEDS: PARoxetine 20 MG TAB PO SCH (08:46)
[2021-12-23] MEDS: metFORMIN 500 MG TAB PO SCH (08:46)
[2021-12-23] MEDS: Cyanocobalamin (Vitamin B-12) 1,000 MCG TAB PO SCH (08:46)
[2021-12-23] MEDS: Levothyroxine Sodium 75 MCG TAB PO SCH (08:46)
[2021-12-23] MEDS: Acetaminophen 325 MG TAB PO PRN (14:27)
[2021-12-23] MEDS ORDERED: CAPECITABINE 500 MG PO SCH (17:00)
[2021-12-23] MEDS: Loratadine 10 MG TAB PO SCH (20:55)
[2021-12-23] MEDS: risperiDONE 0.25 MG TAB PO SCH (20:56)
[2021-12-23] MEDS: Nortriptyline HCl 25 MG CAP PO SCH (20:56)
[2021-12-23] MEDS: Simvastatin 10 MG TAB PO SCH (20:56)
[2021-12-24 04:22] LABS: #Basophils 0.1 thou/uL (0.0-0.2); #Eosinphils 0.7 thou/uL (0.0-0.7); #Lymphocytes 1.4 thou/uL (1.20-3.40); #Monocytes 0.9 thou/uL (0.11-0.59); #Neutrophils 4.2 thou/uL (1.40-6.50); %Basophils 0.9 % (0.0-1.0); %Eosinophils 9.6 % (0.0-10.0); %Monocytes 12.5 % (0.0-10.0); %Neutrophils 57.9 % (42.0-75.0); Hemoglobin 11.2 g/dL (12.0-16.0); Mean Corpuscular HGB CONC 32.9 g/dL (32.0-36.0); Mean Corpuscular Hemoglobin 38.2 pg (27.0-31.0); Mean Platelet Volume 7.1 fL (7.4-10.4); Platelet Count 205 thou/uL (130-400); RBC Distribution Width 18.7 % (11.5-14.5); Red Blood Cell (RBC) Count 2.94 mill/uL (4.20-5.40); White Blood Cell (WBC) Count 7.2 thou/uL (4.8-10.8)
[2021-12-24 04:37] LABS: ALT (SGPT) 10 U/L (8-55); AST (SGOT) 25 U/L (5-34); Albumin 3.4 g/dL (3.4-4.8); Alkaline Phosphatase 74 U/L (40-110); Anion Gap 11 mmol/L (10-20); BUN (Urea Nitrogen) 14 mg/dL (9.8-20.1); Bilirubin, Total 0.9 mg/dL (0.2-1.2); Calc. Creatinine Clearance 55 mL/min (70-130); Calcium 9.1 mg/dL (7.8-10.44); Carbon Dioxide 28 mmol/L (23-31); Chloride 101 mmol/L (98-107); Globulin 3.3 g/dL (2.4-3.5); Glucose 166 mg/dL (80-115); Potassium 3.5 mmol/L (3.5-5.1); Protein, Total 6.7 g/dL (5.8-8.1); Sodium 136 mmol/L (136-145)
[2021-12-24] MEDS: Sodium Chloride 0.9% 1,000 ML IV SCH ×2 (06:02→18:34)
[2021-12-24] MEDS ORDERED: CAPECITABINE 500 MG PO SCH (08:00)
[2021-12-24] MEDS: PARoxetine 20 MG TAB PO SCH (09:02)
[2021-12-24] MEDS: metFORMIN 500 MG TAB PO SCH (09:03)
[2021-12-24] MEDS: Cyanocobalamin (Vitamin B-12) 1,000 MCG TAB PO SCH (09:03)
[2021-12-24] MEDS: Cholecalciferol 1,000 UNITS (25 MCG) TAB PO SCH (09:03)
[2021-12-24] MEDS: Levothyroxine Sodium 75 MCG TAB PO SCH (09:04)
[2021-12-24] MEDS ORDERED: ceFAZolin 2 GM/Dextrose 50 ML IVPB ONE (11:37)
[2021-12-24] MEDS ORDERED: Gentamicin 80 MG/2 ML VIAL ONE (11:37)
[2021-12-24] MEDS ORDERED: CEFAZOLIN 1 GM VIAL ONE (11:37)
[2021-12-24] MEDS ORDERED: Midazolam HCl 2 mg/2 ml Vial ONE (12:10)
[2021-12-24] MEDS ORDERED: Fentanyl 100 MCG/2 ML VIAL ONE (12:10)
[2021-12-24] MEDS: Acetaminophen 325 MG TAB PO PRN ×2 (15:45→20:46)
[2021-12-24] MEDS: CAPECITABINE 500 MG PO SCH (18:03)
[2021-12-24] MEDS: Nortriptyline HCl 25 MG CAP PO SCH (20:46)
[2021-12-24] MEDS: Simvastatin 10 MG TAB PO SCH (20:47)
[2021-12-24] MEDS: risperiDONE 0.25 MG TAB PO SCH (20:47)
[2021-12-24] MEDS: Loratadine 10 MG TAB PO SCH (20:47)
[2021-12-24] MEDS ORDERED: Diltiazem HCl CD 300 mg Capsule PO SCH (21:00)
[2021-12-25] MEDS: Sodium Chloride 0.9% 1,000 ML IV SCH (03:12)
[2021-12-25] MEDS ORDERED: CAPECITABINE 500 MG PO SCH (08:00)
[2021-12-25] MEDS: PARoxetine 20 MG TAB PO SCH (08:59)
[2021-12-25] MEDS: Levothyroxine Sodium 75 MCG TAB PO SCH (09:00)
[2021-12-25] MEDS: metFORMIN 500 MG TAB PO SCH (09:00)
[2021-12-25] MEDS: Cholecalciferol 1,000 UNITS (25 MCG) TAB PO SCH (09:00)
[2021-12-25] MEDS ORDERED: Furosemide 20 MG/2 ML VIAL SLOW IVP SCH (09:00)
[2021-12-25] MEDS ORDERED: Furosemide 20 MG TAB PO SCH (09:00)
[2021-12-25] MEDS: Cyanocobalamin (Vitamin B-12) 1,000 MCG TAB PO SCH (09:00)
[2021-12-25 09:36] LABS: #Basophils 0.1 thou/uL (0.0-0.2); #Eosinphils 0.5 thou/uL (0.0-0.7); #Lymphocytes 1.3 thou/uL (1.20-3.40); #Monocytes 1.1 thou/uL (0.11-0.59); #Neutrophils 4.7 thou/uL (1.40-6.50); %Basophils 0.9 % (0.0-1.0); %Lymphocytes 17.5 % (21.0-51.0); %Monocytes 14.1 % (0.0-10.0); %Neutrophils 61.5 % (42.0-75.0); Hemoglobin 10.7 g/dL (12.0-16.0); Mean Corpuscular Hemoglobin 37.4 pg (27.0-31.0); Mean Platelet Volume 6.4 fL (7.4-10.4); Platelet Count 202 thou/uL (130-400); RBC Distribution Width 18.8 % (11.5-14.5); Red Blood Cell (RBC) Count 2.86 mill/uL (4.20-5.40); White Blood Cell (WBC) Count 7.6 thou/uL (4.8-10.8)
[2021-12-25 09:51] LABS: ALT (SGPT) 10 U/L (8-55); AST (SGOT) 20 U/L (5-34); Albumin 3.4 g/dL (3.4-4.8); Alkaline Phosphatase 73 U/L (40-110); Anion Gap 13 mmol/L (10-20); BUN (Urea Nitrogen) 12 mg/dL (9.8-20.1); Bilirubin, Total 0.6 mg/dL (0.2-1.2); Calc. Creatinine Clearance 66 mL/min (70-130); Calcium 8.9 mg/dL (7.8-10.44); Carbon Dioxide 22 mmol/L (23-31); Chloride 105 mmol/L (98-107); Globulin 2.7 g/dL (2.4-3.5); Glucose 121 mg/dL (80-115); Protein, Total 6.1 g/dL (5.8-8.1); Sodium 136 mmol/L (136-145)
[2021-12-25] MEDS: Acetaminophen 325 MG TAB PO PRN (14:09)
[2021-12-25 15:43] VITALS: TEMP 98
[2021-12-25 15:44] VITALS: BP 150/67
[2021-12-25] MEDS: CAPECITABINE 500 MG PO SCH (18:17)
[2021-12-26] MEDS ORDERED: Apixaban 5 MG TAB PO SCH (09:00)
== END 2021-12-25 17:50 | disposition home health service (06) | DRG 242 ==
LOC: ERS 16:44 → OBSVTOIN 19:44 → 2NO 19:44
PROVIDERS: ADMIT Family Medicine; ATTEND Family Medicine
PROC: 0JH606Z Insertion of Pacemaker, Dual Chamber into Chest Subcutaneous Tissue and Fascia, Open Approach (ICD-10-PCS; principal; 2021-12-24)
PROC: 02H60JZ Insertion of Pacemaker Lead into Right Atrium, Open Approach (ICD-10-PCS; 2021-12-24)
PROC: 02HK0JZ Insertion of Pacemaker Lead into Right Ventricle, Open Approach (ICD-10-PCS; 2021-12-24)
DX: I13.0 Hypertensive heart and chronic kidney disease with heart failure and stage 1 through stage 4 chronic kidney disease, or unspecified chronic kidney disease (principal); J96.01 Acute respiratory failure with hypoxia; I50.33 Acute on chronic diastolic (congestive) heart failure; C79.51 Secondary malignant neoplasm of bone; I48.19 Other persistent atrial fibrillation; Z20.822 Contact with and (suspected) exposure to COVID-19; K21.9 Gastro-esophageal reflux disease without esophagitis; F41.9 Anxiety disorder, unspecified; F32.A Depression, unspecified; I48.91 Unspecified atrial fibrillation; C50.912 Malignant neoplasm of unspecified site of left female breast; E03.9 Hypothyroidism, unspecified; J34.89 Other specified disorders of nose and nasal sinuses; N18.32 Chronic kidney disease, stage 3b; E11.22 Type 2 diabetes mellitus with diabetic chronic kidney disease; Z88.0 Allergy status to penicillin; Z90.710 Acquired absence of both cervix and uterus; Z79.890 Hormone replacement therapy; Z79.899 Other long term (current) drug therapy; Z79.01 Long term (current) use of anticoagulants; Z88.1 Allergy status to other antibiotic agents; I49.5 Sick sinus syndrome; D63.1 Anemia in chronic kidney disease; E78.00 Pure hypercholesterolemia, unspecified; E66.9 Obesity, unspecified; Z68.32 Body mass index [BMI] 32.0-32.9, adult
CPT/HCPCS: 33208; 36415; 36416; 71045; 71275; 74177; 80053; 81003; 82248; 83735; 83880; 84100; 84484; 85025; 93005; 93010; 96374; 97139; 99152; 99153; C1785; C1898; J0690; J1580; J1650; J1815; J1940; J2250; J3010; J7050

== ENCOUNTER 2022-02-01 08:00 | Outpatient (CLI) | payer MEDICARE, MEDICAID | END 2022-02-01 08:01 | disposition home or self-care (01) | LOC: PET 08:00 | PROVIDERS: ATTEND Internal Medicine Medical Oncology | DX: C50.412 Malignant neoplasm of upper-outer quadrant of left female breast (principal); C79.51 Secondary malignant neoplasm of bone | CPT/HCPCS: 78815; A9552 ==

== ENCOUNTER 2022-03-30 13:17 | Outpatient (CLI) | payer MEDICARE, MEDICAID | END 2022-03-30 13:18 | disposition home or self-care (01) | LOC: BICRAD 13:17 | PROVIDERS: ATTEND Internal Medicine Cardiovascular Disease | DX: Z48.812 Encounter for surgical aftercare following surgery on the circulatory system (principal); Z95.0 Presence of cardiac pacemaker | CPT/HCPCS: 71046 ==

== ENCOUNTER 2022-04-07 14:18 | Outpatient (CLI) | payer MEDICARE, MEDICAID | END 2022-04-07 14:19 | disposition home or self-care (01) | LOC: BICMAMMO 14:18 | PROVIDERS: ATTEND Internal Medicine Medical Oncology | DX: Z12.31 Encounter for screening mammogram for malignant neoplasm of breast (principal); Z85.3 Personal history of malignant neoplasm of breast; Z98.890 Other specified postprocedural states | CPT/HCPCS: 77063; 77067 ==

== ENCOUNTER 2022-08-13 11:32 | Inpatient (IN) | payer MEDICARE, MEDICAID ==
[~2022-08-13 11:32] MED LIST changes: -Ferumoxytol (NON ERSD) 510 MG in Sodium Chloride 0.9% 250 ML 150 ML IVPB SCH; +Heparin 1,000 UNITS/ML VIAL ONE
[2022-08-13] MEDS ORDERED: Cefepime 2 GM VIAL ONE (13:13)
[2022-08-13] MEDS ORDERED: Ondansetron PF 4 MG/2 ML Vial ONE (13:14)
[2022-08-13 13:24] LABS: Hemoglobin 10.9 g/dL (12.0-16.0); Mean Corpuscular HGB CONC 31.7 g/dL (32.0-36.0); Mean Corpuscular Hemoglobin 31.5 pg (27.0-31.0); Mean Corpuscular Volume 99.5 fl (78.0-98.0); Mean Platelet Volume 7.4 fL (7.4-10.4); Platelet Count 241 10x3/uL (130-400); RBC Distribution Width 19.6 % (11.5-14.5); Red Blood Cell (RBC) Count 3.47 mill/uL (4.20-5.40); White Blood Cell (WBC) Count 13.6 10x3/uL (4.8-10.8)
[2022-08-13 13:45] LABS: ALT (SGPT) 29 U/L (8-55); AST (SGOT) 21 U/L (5-34); Albumin 3.3 g/dL (3.4-4.8); Alkaline Phosphatase 94 U/L (40-110); Anion Gap 16 mmol/L (10-20); BUN (Urea Nitrogen) 26 mg/dL (9.8-20.1); Bilirubin, Total 0.4 mg/dL (0.2-1.2); Calc. Creatinine Clearance 0 mL/min (70-130); Calcium 9.9 mg/dL (7.8-10.44); Carbon Dioxide 19 mmol/L (23-31); Chloride 101 mmol/L (98-107); Estimated GFR 21; Globulin 3.7 g/dL (2.4-3.5); Glucose 296 mg/dL (80-115); Lipase 7 U/L (8-78); Potassium 4.2 mmol/L (3.5-5.1); Sodium 132 mmol/L (136-145)
[2022-08-13] MEDS ORDERED: Vancomycin 1.5 GRAM/300 ML BAG 1.5 GM in Premix Bag 1 BAG IVPB SCH (13:45)
[2022-08-13 13:50] LABS: Anisocytosis SLIGHT = 6-15 cells (100X) (0-5/hpf); Band 13 % (5-11); Lymphocytes 13 % (21-51); MDiff Complete? YES; Monocytes 7 % (0-10); Neutrophil 67 % (42-75); Platelet Morphology Comment Appears Adequate; Polychromasia SLIGHT = 2-3 cells (100X) (0-2/hpf)
[2022-08-13] MEDS ORDERED: Morphine 4 MG/ML VIAL ONE (14:24)
[2022-08-13] MEDS ORDERED: Dextrose 5% in Water 1,000 ML IV PRN (16:25)
[2022-08-13] MEDS ORDERED: Dextrose 50% Abboject 50 ML SYRINGE SLOW IVP PRN (16:25)
[2022-08-13] MEDS ORDERED: Vancomycin HCl 1 GM in Sodium Chloride 0.9% 250 ML 250 ML IVPB SCH (16:30)
[2022-08-13] MEDS ORDERED: Acetaminophen 500 MG TAB PO PRN (17:03)
[2022-08-13 17:23] VITALS: BMI 30.1
[2022-08-13] MEDS ORDERED: VANCOMYCIN HCL IVPB PRN (17:39)
[2022-08-13] MEDS ORDERED: SODIUM CHLORIDE 0.9% IVPB PRN (17:39)
[2022-08-13] MEDS ORDERED: Vancomycin Dose by Levels Sliding Scale (Wt 71-99) FS SCH (17:45)
[2022-08-13] MEDS: Lactated Ringer's 1,000 ML IV SCH (19:59)
[2022-08-13] MEDS: risperiDONE 0.25 MG TAB PO SCH (20:50)
[2022-08-13] MEDS: hydrOXYzine 25 MG TAB PO SCH (20:51)
[2022-08-13] MEDS: Apixaban 5 MG TAB PO SCH (20:53)
[2022-08-13] MEDS: PARoxetine 20 MG TAB PO SCH (20:57)
[2022-08-13 21:00] LABS: BF Color Gray; Body Fluid Source Abscess Fluid; Clarity Cloudy/Turbid (Clear); Tube # 1
[2022-08-13] MEDS: HumaLOG 300 UNITS/3 ML VIAL SC PRN (21:01)
[2022-08-13 22:42] LABS: Creatinine, Urine 47.8 mg/dL (47-110)
[2022-08-14] MEDS: Levothyroxine Sodium 75 MCG TAB PO SCH (05:50)
[2022-08-14] MEDS: Lactated Ringer's 1,000 ML IV SCH (05:50)
[2022-08-14] MEDS: HumaLOG 300 UNITS/3 ML VIAL SC PRN ×3 (05:51→16:01)
[2022-08-14 06:44] LABS: #Eosinphils 0.2 thou/uL (0.0-0.7); #Lymphocytes 1.1 thou/uL (1.20-3.40); #Monocytes 0.6 thou/uL (0.11-0.59); #Neutrophils 6.4 thou/uL (1.40-6.50); %Basophils 0.5 % (0.0-1.0); %Eosinophils 1.9 % (0.0-10.0); %Monocytes 7.6 % (0.0-10.0); Hemoglobin 8.4 g/dL (12.0-16.0); Mean Corpuscular HGB CONC 30.4 g/dL (32.0-36.0); Mean Corpuscular Hemoglobin 30.6 pg (27.0-31.0); Mean Platelet Volume 7.5 fL (7.4-10.4); Platelet Count 190 10x3/uL (130-400); RBC Distribution Width 19.7 % (11.5-14.5); Red Blood Cell (RBC) Count 2.75 mill/uL (4.20-5.40); White Blood Cell (WBC) Count 8.4 10x3/uL (4.8-10.8)
[2022-08-14 07:06] LABS: Anion Gap 14 mmol/L (10-20); BUN (Urea Nitrogen) 29 mg/dL (9.8-20.1); Calc. Creatinine Clearance 27 mL/min (70-130); Calcium 8.8 mg/dL (7.8-10.44); Carbon Dioxide 19 mmol/L (23-31); Chloride 103 mmol/L (98-107); Estimated GFR 21; Glucose 231 mg/dL (80-115); Sodium 132 mmol/L (136-145)
[2022-08-14] MEDS ORDERED: metFORMIN 500 MG TAB PO SCH (08:00)
[2022-08-14] MEDS ORDERED: hydrOXYzine 25 MG TAB PO SCH (09:00)
[2022-08-14] MEDS: Cyproheptadine 4 MG TAB PO SCH (09:40)
[2022-08-14] MEDS: Ezetimibe 10 MG TAB PO SCH (09:40)
[2022-08-14] MEDS: Apixaban 5 MG TAB PO SCH ×2 (09:40→20:18)
[2022-08-14] MEDS: Tamsulosin HCl 0.4 MG CAP PO SCH (09:40)
[2022-08-14] MEDS: Furosemide 20 MG TAB PO SCH (09:40)
[2022-08-14 13:00] LABS: Hemoglobin 8.9 g/dL (12.0-16.0)
[2022-08-14 13:50] LABS: Vancomycin, Random 17.7 ug/mL (See Comment)
[2022-08-14] MEDS ORDERED: Acetaminophen/Codeine 30-300mg Tablet PO PRN (15:55)
[2022-08-14] MEDS ORDERED: Vancomycin HCl 500 MG in Sodium Chloride 0.9% 100 ML IVPB SCH (16:00)
[2022-08-14] MEDS ORDERED: Acetaminophen/Codeine 30-300mg Tablet PO SCH (16:00)
[2022-08-14] MEDS ORDERED: traMADol HCl 50 MG TAB PO SCH (20:15)
[2022-08-14] MEDS: PARoxetine 20 MG TAB PO SCH (20:17)
[2022-08-14] MEDS: hydrOXYzine 25 MG TAB PO SCH (20:22)
[2022-08-14] MEDS: risperiDONE 0.25 MG TAB PO SCH (20:46)
[2022-08-15] MEDS ORDERED: Morphine 4 MG/ML VIAL SLOW IVP SCH (00:45)
[2022-08-15 05:51] LABS: #Eosinphils 0.2 thou/uL (0.0-0.7); #Lymphocytes 1.2 thou/uL (1.20-3.40); #Monocytes 0.6 thou/uL (0.11-0.59); #Neutrophils 5.5 thou/uL (1.40-6.50); %Basophils 0.6 % (0.0-1.0); %Eosinophils 2.5 % (0.0-10.0); %Lymphocytes 16.2 % (21.0-51.0); %Monocytes 7.6 % (0.0-10.0); %Neutrophils 73.1 % (42.0-75.0); Hemoglobin 9.7 g/dL (12.0-16.0); Mean Corpuscular HGB CONC 32.1 g/dL (32.0-36.0); Mean Corpuscular Hemoglobin 31.7 pg (27.0-31.0); Mean Corpuscular Volume 98.8 fl (78.0-98.0); Mean Platelet Volume 7.5 fL (7.4-10.4); Platelet Count 227 10x3/uL (130-400); RBC Distribution Width 19.8 % (11.5-14.5); Red Blood Cell (RBC) Count 3.06 mill/uL (4.20-5.40); White Blood Cell (WBC) Count 7.5 10x3/uL (4.8-10.8)
[2022-08-15 06:17] LABS: Anion Gap 13 mmol/L (10-20); BUN (Urea Nitrogen) 28 mg/dL (9.8-20.1); Calc. Creatinine Clearance 27 mL/min (70-130); Calcium 9.4 mg/dL (7.8-10.44); Carbon Dioxide 23 mmol/L (23-31); Chloride 102 mmol/L (98-107); Estimated GFR 21; Glucose 204 mg/dL (80-115); Potassium 3.6 mmol/L (3.5-5.1); Sodium 134 mmol/L (136-145)
[2022-08-15] MEDS: Levothyroxine Sodium 75 MCG TAB PO SCH (06:24)
[2022-08-15] MEDS: HumaLOG 300 UNITS/3 ML VIAL SC PRN ×3 (06:25→16:10)
[2022-08-15] MEDS: Ezetimibe 10 MG TAB PO SCH (08:13)
[2022-08-15] MEDS: Tamsulosin HCl 0.4 MG CAP PO SCH (08:13)
[2022-08-15] MEDS: Cyproheptadine 4 MG TAB PO SCH (08:13)
[2022-08-15] MEDS: Apixaban 5 MG TAB PO SCH (08:13)
[2022-08-15] MEDS: Furosemide 20 MG TAB PO SCH (08:13)
[2022-08-15] MEDS: HYDROcodone/Acetaminophen 5/325 mg Tablet PO PRN ×2 (11:06→20:32)
[2022-08-15 15:43] LABS: Vancomycin, Random 17.8 ug/mL (See Comment)
[2022-08-15] MEDS ORDERED: Vancomycin HCl 500 MG in Sodium Chloride 0.9% 100 ML IVPB SCH (16:00)
[2022-08-15] MEDS: risperiDONE 0.25 MG TAB PO SCH (20:32)
[2022-08-15] MEDS: PARoxetine 20 MG TAB PO SCH (20:33)
[2022-08-15] MEDS: hydrOXYzine 25 MG TAB PO SCH (20:34)
[2022-08-16] MEDS: Levothyroxine Sodium 75 MCG TAB PO SCH (05:47)
[2022-08-16] MEDS: HumaLOG 300 UNITS/3 ML VIAL SC PRN (05:48)
[2022-08-16 07:10] LABS: #Eosinphils 0.2 thou/uL (0.0-0.7); #Lymphocytes 1.3 thou/uL (1.20-3.40); #Monocytes 0.7 thou/uL (0.11-0.59); #Neutrophils 5.7 thou/uL (1.40-6.50); %Basophils 0.5 % (0.0-1.0); %Monocytes 8.8 % (0.0-10.0); %Neutrophils 72.7 % (42.0-75.0); Hemoglobin 10.2 g/dL (12.0-16.0); Mean Corpuscular HGB CONC 30.7 g/dL (32.0-36.0); Mean Corpuscular Hemoglobin 30.8 pg (27.0-31.0); Mean Platelet Volume 8.3 fL (7.4-10.4); Platelet Count 231 10x3/uL (130-400); RBC Distribution Width 20.2 % (11.5-14.5); White Blood Cell (WBC) Count 7.9 10x3/uL (4.8-10.8)
[2022-08-16 07:12] LABS: Anion Gap 15 mmol/L (10-20); BUN (Urea Nitrogen) 28 mg/dL (9.8-20.1); Calc. Creatinine Clearance 26 mL/min (70-130); Calcium 9.8 mg/dL (7.8-10.44); Carbon Dioxide 23 mmol/L (23-31); Chloride 97 mmol/L (98-107); Estimated GFR 19; Glucose 215 mg/dL (80-115); Potassium 3.4 mmol/L (3.5-5.1); Sodium 132 mmol/L (136-145)
[2022-08-16] MEDS: Ezetimibe 10 MG TAB PO SCH (08:09)
[2022-08-16] MEDS: Cyproheptadine 4 MG TAB PO SCH (08:09)
[2022-08-16] MEDS: Tamsulosin HCl 0.4 MG CAP PO SCH (08:09)
[2022-08-16] MEDS: Furosemide 20 MG TAB PO SCH (08:09)
[2022-08-16 08:32] LABS: Magnesium 1.7 mg/dL (1.6-2.6); Phosphorus 2.8 mg/dL (2.3-4.7)
[2022-08-16] MEDS ORDERED: Magnesium 2 GM/50 ML(in water) 2 GM in Premix Bag 1 BAG IVPB SCH (09:00)
[2022-08-16] MEDS ORDERED: Polyethylene Glycol 3350 17 GM Packet PO SCH (09:00)
[2022-08-16] MEDS ORDERED: Potassium Phosphate 30 MMOL, Magnesium Sulfate 2 GM in Sodium Chloride 0.9% 250 ML 250 ML IVPB SCH (09:00)
[2022-08-16] MEDS ORDERED: Acetaminophen 500 MG TAB PO PRN (09:15)
[2022-08-16] MEDS: Lactated Ringer's 1,000 ML IV SCH ×3 (10:04→19:44)
[2022-08-16] MEDS ORDERED: Polyethylene Glycol 3350 17 GM Packet PO PRN (10:37)
[2022-08-16] MEDS ORDERED: Bupivacaine/Epinephrine 0.25% 30 ML VIAL ONE (16:07)
[2022-08-16] MEDS ORDERED: Lidocaine 1% (PF) 30 ML VIAL ONE (16:07)
[2022-08-16] MEDS ORDERED: fentaNYL PF 100 MCG/2 ML SYRINGE ONE (16:28)
[2022-08-16] MEDS ORDERED: PROPOFOL 200 MG/20 ML VIAL ONE (16:42)
[2022-08-16] MEDS ORDERED: FENTANYL 50 MCG/ML 1 ML VIAL ONE (17:56)
[2022-08-16 20:03] LABS: Vancomycin, Random 10.8 ug/mL (See Comment)
[2022-08-16] MEDS: PARoxetine 20 MG TAB PO SCH (20:42)
[2022-08-16] MEDS: hydrOXYzine 25 MG TAB PO SCH (20:43)
[2022-08-16] MEDS: risperiDONE 0.25 MG TAB PO SCH (20:43)
[2022-08-16] MEDS: HYDROcodone/Acetaminophen 5/325 mg Tablet PO PRN (20:55)
[2022-08-16] MEDS ORDERED: Vancomycin HCl 750 MG in Sodium Chloride 0.9% 250 ML 250 ML IVPB SCH (22:30)
[2022-08-17] MEDS: Lactated Ringer's 1,000 ML IV SCH ×2 (00:20→19:26)
[2022-08-17 05:44] LABS: #Eosinphils 0.1 thou/uL (0.0-0.7); #Lymphocytes 1.2 thou/uL (1.20-3.40); #Monocytes 0.8 thou/uL (0.11-0.59); #Neutrophils 5.4 thou/uL (1.40-6.50); %Basophils 0.4 % (0.0-1.0); %Eosinophils 1.4 % (0.0-10.0); %Lymphocytes 15.9 % (21.0-51.0); %Monocytes 10.9 % (0.0-10.0); %Neutrophils 71.5 % (42.0-75.0); Mean Corpuscular HGB CONC 31.8 g/dL (32.0-36.0); Mean Corpuscular Hemoglobin 31.7 pg (27.0-31.0); Mean Corpuscular Volume 99.4 fl (78.0-98.0); Mean Platelet Volume 8.1 fL (7.4-10.4); Platelet Count 233 10x3/uL (130-400); RBC Distribution Width 20.2 % (11.5-14.5); Red Blood Cell (RBC) Count 3.17 mill/uL (4.20-5.40); White Blood Cell (WBC) Count 7.6 10x3/uL (4.8-10.8)
[2022-08-17 06:04] LABS: Anion Gap 13 mmol/L (10-20); BUN (Urea Nitrogen) 24 mg/dL (9.8-20.1); Calc. Creatinine Clearance 27 mL/min (70-130); Calcium 9.2 mg/dL (7.8-10.44); Carbon Dioxide 22 mmol/L (23-31); Chloride 98 mmol/L (98-107); Estimated GFR 21; Glucose 211 mg/dL (80-115); Potassium 2.9 mmol/L (3.5-5.1); Sodium 130 mmol/L (136-145)
[2022-08-17] MEDS: Levothyroxine Sodium 75 MCG TAB PO SCH (06:41)
[2022-08-17] MEDS ORDERED: Potassium Chloride 20 MEQ TAB PO SCH ×3 (07:00→17:15)
[2022-08-17] MEDS ORDERED: Midazolam HCl 2 mg/2 ml Vial ONE (10:23)
[2022-08-17] MEDS ORDERED: Ketamine 50 MG/ML (10ML VIAL) ONE (10:23)
[2022-08-17] MEDS ORDERED: PROPOFOL 20 ML ONE (10:25)
[2022-08-17] MEDS: Furosemide 20 MG TAB PO SCH (12:55)
[2022-08-17] MEDS: Cyproheptadine 4 MG TAB PO SCH (12:55)
[2022-08-17] MEDS: Tamsulosin HCl 0.4 MG CAP PO SCH (12:55)
[2022-08-17] MEDS: Ezetimibe 10 MG TAB PO SCH (12:55)
[2022-08-17 14:34] LABS: Anion Gap 13 mmol/L (10-20); BUN (Urea Nitrogen) 23 mg/dL (9.8-20.1); Calc. Creatinine Clearance 28 mL/min (70-130); Calcium 9.3 mg/dL (7.8-10.44); Carbon Dioxide 25 mmol/L (23-31); Chloride 98 mmol/L (98-107); Estimated GFR 22; Glucose 181 mg/dL (80-115); Sodium 133 mmol/L (136-145)
[2022-08-17] MEDS: hydrOXYzine 25 MG TAB PO SCH (20:19)
[2022-08-17] MEDS: risperiDONE 0.25 MG TAB PO SCH (20:20)
[2022-08-17] MEDS: Apixaban 5 MG TAB PO SCH (20:21)
[2022-08-17] MEDS: PARoxetine 20 MG TAB PO SCH (20:22)
[2022-08-17 21:41] LABS: Vancomycin, Random 15.8 ug/mL (See Comment)
[2022-08-17] MEDS: HumaLOG 300 UNITS/3 ML VIAL SC PRN (21:48)
[2022-08-17] MEDS ORDERED: Vancomycin HCl 500 MG in Sodium Chloride 0.9% 100 ML IVPB SCH (23:59)
[2022-08-18] MEDS: HYDROcodone/Acetaminophen 5/325 mg Tablet PO PRN ×2 (03:59→11:56)
[2022-08-18 05:24] LABS: #Eosinphils 0.1 thou/uL (0.0-0.7); #Lymphocytes 1.4 thou/uL (1.20-3.40); #Monocytes 0.5 thou/uL (0.11-0.59); #Neutrophils 4.6 thou/uL (1.40-6.50); %Basophils 0.2 % (0.0-1.0); %Eosinophils 1.9 % (0.0-10.0); %Lymphocytes 20.5 % (21.0-51.0); %Monocytes 8.1 % (0.0-10.0); %Neutrophils 69.3 % (42.0-75.0); Hemoglobin 9.8 g/dL (12.0-16.0); Mean Corpuscular HGB CONC 31.9 g/dL (32.0-36.0); Mean Corpuscular Hemoglobin 30.9 pg (27.0-31.0); Mean Corpuscular Volume 96.9 fl (78.0-98.0); Platelet Count 274 10x3/uL (130-400); RBC Distribution Width 20.2 % (11.5-14.5); Red Blood Cell (RBC) Count 3.17 mill/uL (4.20-5.40); White Blood Cell (WBC) Count 6.7 10x3/uL (4.8-10.8)
[2022-08-18 05:27] LABS: Anion Gap 13 mmol/L (10-20); BUN (Urea Nitrogen) 20 mg/dL (9.8-20.1); Calc. Creatinine Clearance 27 mL/min (70-130); Calcium 9.5 mg/dL (7.8-10.44); Carbon Dioxide 25 mmol/L (23-31); Chloride 101 mmol/L (98-107); Estimated GFR 21; Glucose 175 mg/dL (80-115); Potassium 3.8 mmol/L (3.5-5.1); Sodium 135 mmol/L (136-145)
[2022-08-18] MEDS: Levothyroxine Sodium 75 MCG TAB PO SCH (05:42)
[2022-08-18] MEDS: HumaLOG 300 UNITS/3 ML VIAL SC PRN ×3 (05:43→16:43)
[2022-08-18] MEDS: Apixaban 5 MG TAB PO SCH ×2 (09:03→20:22)
[2022-08-18] MEDS: Furosemide 20 MG TAB PO SCH (09:08)
[2022-08-18] MEDS: Tamsulosin HCl 0.4 MG CAP PO SCH (09:08)
[2022-08-18] MEDS: Ezetimibe 10 MG TAB PO SCH (09:08)
[2022-08-18] MEDS: Cyproheptadine 4 MG TAB PO SCH (09:09)
[2022-08-18 19:54] VITALS: TEMP 98.2
[2022-08-18] MEDS: hydrOXYzine 25 MG TAB PO SCH (20:22)
[2022-08-18] MEDS: PARoxetine 20 MG TAB PO SCH (20:23)
[2022-08-18] MEDS: risperiDONE 0.25 MG TAB PO SCH (20:23)
[2022-08-18 23:40] LABS: Vancomycin, Random 15.3 ug/mL (See Comment)
[2022-08-18] MEDS ORDERED: Vancomycin HCl 500 MG in Sodium Chloride 0.9% 100 ML IVPB SCH (23:59)
[2022-08-19] MEDS: Levothyroxine Sodium 75 MCG TAB PO SCH (05:20)
[2022-08-19 05:31] LABS: #Eosinphils 0.2 thou/uL (0.0-0.7); #Lymphocytes 1.4 thou/uL (1.20-3.40); #Monocytes 0.6 thou/uL (0.11-0.59); %Basophils 0.6 % (0.0-1.0); %Eosinophils 3.2 % (0.0-10.0); %Lymphocytes 22.1 % (21.0-51.0); %Monocytes 9.6 % (0.0-10.0); %Neutrophils 64.5 % (42.0-75.0); Hemoglobin 10.3 g/dL (12.0-16.0); Mean Corpuscular Hemoglobin 31.4 pg (27.0-31.0); Mean Platelet Volume 7.7 fL (7.4-10.4); Platelet Count 293 10x3/uL (130-400); RBC Distribution Width 20.2 % (11.5-14.5); Red Blood Cell (RBC) Count 3.29 mill/uL (4.20-5.40); White Blood Cell (WBC) Count 6.2 10x3/uL (4.8-10.8)
[2022-08-19 05:57] LABS: Anion Gap 14 mmol/L (10-20); BUN (Urea Nitrogen) 20 mg/dL (9.8-20.1); Calc. Creatinine Clearance 27 mL/min (70-130); Calcium 10.1 mg/dL (7.8-10.44); Carbon Dioxide 25 mmol/L (23-31); Chloride 99 mmol/L (98-107); Estimated GFR 21; Glucose 188 mg/dL (80-115); Potassium 3.2 mmol/L (3.5-5.1); Sodium 135 mmol/L (136-145)
[2022-08-19] MEDS ORDERED: Potassium Chloride 20 MEQ TAB PO SCH (08:00)
[2022-08-19] MEDS: Tamsulosin HCl 0.4 MG CAP PO SCH (09:48)
[2022-08-19] MEDS: Ezetimibe 10 MG TAB PO SCH (09:48)
[2022-08-19] MEDS: Furosemide 20 MG TAB PO SCH (09:48)
[2022-08-19] MEDS: Apixaban 5 MG TAB PO SCH (09:48)
[2022-08-19] MEDS: HumaLOG 300 UNITS/3 ML VIAL SC PRN (11:43)
[2022-08-19] MEDS: HYDROcodone/Acetaminophen 5/325 mg Tablet PO PRN (11:44)
[2022-08-19] MEDS: Cyproheptadine 4 MG TAB PO SCH (14:49)
[2022-08-19 16:36] VITALS: BP 122/78
== END 2022-08-19 18:00 | disposition home or self-care (01) | DRG 571 ==
LOC: ERS 11:32 → MSONC 15:13
PROVIDERS: ADMIT Student in an Organized Health Care Education/Training Program; ATTEND Student in an Organized Health Care Education/Training Program
PROC: 0W983ZX Drainage of Chest Wall, Percutaneous Approach, Diagnostic (ICD-10-PCS; 2022-08-13)
PROC: 0W983ZZ Drainage of Chest Wall, Percutaneous Approach (ICD-10-PCS; 2022-08-13)
PROC: 0W980ZZ Drainage of Chest Wall, Open Approach (ICD-10-PCS; principal; 2022-08-16)
PROC: 0JB60ZX Excision of Chest Subcutaneous Tissue and Fascia, Open Approach, Diagnostic (ICD-10-PCS; 2022-08-16)
PROC: 0JB60ZZ Excision of Chest Subcutaneous Tissue and Fascia, Open Approach (ICD-10-PCS; 2022-08-16)
PROC: B24BZZ4 Ultrasonography of Heart with Aorta, Transesophageal (ICD-10-PCS; 2022-08-17)
PROC: 02HV33Z Insertion of Infusion Device into Superior Vena Cava, Percutaneous Approach (ICD-10-PCS; 2022-08-18)
PROC: B548ZZA Ultrasonography of Superior Vena Cava, Guidance (ICD-10-PCS; 2022-08-18)
PROC: B5181ZA Fluoroscopy of Superior Vena Cava using Low Osmolar Contrast, Guidance (ICD-10-PCS; 2022-08-18)
DX: L03.313 Cellulitis of chest wall (principal); C79.51 Secondary malignant neoplasm of bone; E87.1 Hypo-osmolality and hyponatremia; N17.9 Acute kidney failure, unspecified; I50.32 Chronic diastolic (congestive) heart failure; I13.0 Hypertensive heart and chronic kidney disease with heart failure and stage 1 through stage 4 chronic kidney disease, or unspecified chronic kidney disease; L02.213 Cutaneous abscess of chest wall; C50.919 Malignant neoplasm of unspecified site of unspecified female breast; F32.A Depression, unspecified; E03.9 Hypothyroidism, unspecified; M79.7 Fibromyalgia; I48.0 Paroxysmal atrial fibrillation; D63.1 Anemia in chronic kidney disease; E78.00 Pure hypercholesterolemia, unspecified; N18.9 Chronic kidney disease, unspecified; E11.22 Type 2 diabetes mellitus with diabetic chronic kidney disease; Z68.30 Body mass index [BMI] 30.0-30.9, adult; E87.6 Hypokalemia; B95.62 Methicillin resistant Staphylococcus aureus infection as the cause of diseases classified elsewhere; Z20.822 Contact with and (suspected) exposure to COVID-19; E66.9 Obesity, unspecified; F41.9 Anxiety disorder, unspecified; I89.0 Lymphedema, not elsewhere classified; Z88.1 Allergy status to other antibiotic agents; Z95.0 Presence of cardiac pacemaker; Z79.899 Other long term (current) drug therapy; Z79.890 Hormone replacement therapy; Z90.710 Acquired absence of both cervix and uterus; Z90.49 Acquired absence of other specified parts of digestive tract; Z86.718 Personal history of other venous thrombosis and embolism; Z79.01 Long term (current) use of anticoagulants; Z79.84 Long term (current) use of oral hypoglycemic drugs
CPT/HCPCS: 36415; 36416; 36569; 71045; 71250; 74177; 76942; 80048; 80053; 80202; 82550; 82570; 83605; 83690; 83735; 83930; 83935; 84100; 84145; 84300; 85025; 85060; 87040; 87070; 87077; 87186; 87205; 88305; 88312; 88342; 89051; 93005; 93010; 93312; 96361; 96365; 96366; 96367; 96375; 96376; 97139; C1751; J0692; J0878; J1815; J2001; J2250; J2270; J2405; J2704; J3010; J3370; J3475; J3490; J7050; J7120; U0003; U0005

== ENCOUNTER 2022-09-12 17:55 | Inpatient (IN) | payer MEDICARE, MEDICAID ==
[2022-09-12 18:54] LABS: #Basophils 0.1 thou/uL (0.0-0.2); #Eosinphils 0.1 thou/uL (0.0-0.7); #Lymphocytes 1.9 thou/uL (1.20-3.40); #Monocytes 0.5 thou/uL (0.11-0.59); #Neutrophils 5.5 thou/uL (1.40-6.50); %Eosinophils 1.1 % (0.0-10.0); %Lymphocytes 22.9 % (21.0-51.0); %Monocytes 6.7 % (0.0-10.0); %Neutrophils 68.3 % (42.0-75.0); Hemoglobin 5.5 g/dL (12.0-16.0); Mean Corpuscular HGB CONC 32.8 g/dL (32.0-36.0); Mean Corpuscular Hemoglobin 30.3 pg (27.0-31.0); Mean Corpuscular Volume 92.4 fl (78.0-98.0); Mean Platelet Volume 9.1 fL (7.4-10.4); Platelet Count 179 10x3/uL (130-400); RBC Distribution Width 20.4 % (11.5-14.5); Red Blood Cell (RBC) Count 1.83 mill/uL (4.20-5.40); White Blood Cell (WBC) Count 8.1 10x3/uL (4.8-10.8)
[2022-09-12 19:13] LABS: ALT (SGPT) 21 U/L (8-55); AST (SGOT) 17 U/L (5-34); Albumin 3.6 g/dL (3.4-4.8); Alkaline Phosphatase 59 U/L (40-110); Anion Gap 15 mmol/L (10-20); BUN (Urea Nitrogen) 45 mg/dL (9.8-20.1); Bilirubin, Total 0.3 mg/dL (0.2-1.2); Calc. Creatinine Clearance 0 mL/min (70-130); Calcium 8.3 mg/dL (7.8-10.44); Carbon Dioxide 20 mmol/L (23-31); Chloride 107 mmol/L (98-107); Estimated GFR 15; Globulin 1.9 g/dL (2.4-3.5); Glucose 302 mg/dL (80-115); Potassium 4.4 mmol/L (3.5-5.1); Protein, Total 5.5 g/dL (5.8-8.1); Sodium 138 mmol/L (136-145)
[2022-09-12] MEDS ORDERED: Tranexamic Acid 1,000 MG/10 ML VIAL ONE (21:05)
[2022-09-12] MEDS ORDERED: Pantoprazole 40 MG VIAL ONE (21:06)
[2022-09-12] MEDS ORDERED: Tranexamic Acid 1,000 MG in Sodium Chloride 0.9% 250 ML 250 ML IVPB SCH (21:30)
[2022-09-12 22:53] LABS: Bacteria/HPF None Seen HPF (None Seen); Bilirubin Negative (Negative); Blood, Urine 1+ (Negative); Clarity Clear (Clear); Glucose, Urine (Dipstick) >=1000 mg/dL (Negative); Ketone, Urine Negative (Negative); Leukocyte 75 Leu/uL (Negative); Nitrite Negative (Negative); Protein, Urine (Dipstick) 30 mg/dL (Neg-Trace); RBC/HPF 0-3 HPF (0-3); Specific Gravity, Urine 1.011 (1.002-1.036); Squamous Epithelial None Seen HPF (0-3); Urobilinogen Normal mg/dL (Less than 2); WBC/HPF 0-3 HPF (0-3)
[2022-09-12 23:19] LABS: SARS-CoV-2 NAA Rapid Test Not Detected (NotDetected)
[2022-09-13] MEDS ORDERED: Acetaminophen 325 MG TAB PO PRN (00:23)
[2022-09-13] MEDS ORDERED: Ondansetron ODT 4 MG TAB PO PRN (00:23)
[2022-09-13] MEDS ORDERED: Ondansetron PF 4 MG/2 ML Vial IVP PRN (00:23)
[2022-09-13 03:50] VITALS: BMI 28.8
[2022-09-13] MEDS ORDERED: Dextrose 50% Abboject 50 ML SYRINGE SLOW IVP PRN (04:24)
[2022-09-13] MEDS ORDERED: Dextrose 5% in Water 1,000 ML IV PRN (04:24)
[2022-09-13] MEDS ORDERED: HumaLOG 300 UNITS/3 ML VIAL ONE ×2 (05:21→11:17)
[2022-09-13] MEDS: HumaLOG 300 UNITS/3 ML VIAL SC PRN ×3 (05:22→21:15)
[2022-09-13 07:16] LABS: Hemoglobin 7.5 g/dL (12.0-16.0); Mean Corpuscular HGB CONC 32.8 g/dL (32.0-36.0); Mean Corpuscular Hemoglobin 30.8 pg (27.0-31.0); Mean Corpuscular Volume 93.7 fl (78.0-98.0); Mean Platelet Volume 8.3 fL (7.4-10.4); Platelet Count 145 10x3/uL (130-400); Red Blood Cell (RBC) Count 2.42 mill/uL (4.20-5.40); White Blood Cell (WBC) Count 9.5 10x3/uL (4.8-10.8)
[2022-09-13 07:25] LABS: Anion Gap 8 mmol/L (10-20); BUN (Urea Nitrogen) 42 mg/dL (9.8-20.1); Calc. Creatinine Clearance 23 mL/min (70-130); Calcium 7.8 mg/dL (7.8-10.44); Carbon Dioxide 23 mmol/L (23-31); Chloride 112 mmol/L (98-107); Estimated GFR 18; Glucose 202 mg/dL (80-115); Potassium 3.6 mmol/L (3.5-5.1); Sodium 139 mmol/L (136-145)
[2022-09-13 07:57] LABS: Band 28 % (5-11); Lymphocytes 10 % (21-51); MDiff Complete? YES; Metamyelocyte 1 % (0-0); Monocytes 3 % (0-10); Myelocyte 1 % (0-0); Neutrophil 57 % (42-75); Nucleated RBC 1 % (0); Platelet Morphology Comment Appears Adequate; Polychromasia SLIGHT = 2-3 cells (100X) (0-2/hpf)
[2022-09-13] MEDS ORDERED: Insulin Glargine 30 UNITS/0.3 ML VIAL SC SCH (09:00)
[2022-09-13] MEDS ORDERED: Lidocaine 1% PF 5 ML VIAL ONE (09:09)
[2022-09-13] MEDS ORDERED: PROPOFOL 200 MG/20 ML VIAL ONE (09:09)
[2022-09-13] MEDS ORDERED: PHENYLEPHRINE-NS 100 MCG/ML 10 ML SYRINGE ONE (09:09)
[2022-09-13] MEDS ORDERED: Promethazine HCl 25 MG/ML VIAL IVPB PRN (09:56)
[2022-09-13] MEDS ORDERED: Ondansetron HCl/PF 4 MG/2 ML Vial IVP PRN (09:56)
[2022-09-13] MEDS ORDERED: Promethazine HCl 25 MG/ML VIAL IM PRN (09:56)
[2022-09-13] MEDS ORDERED: Ondansetron PF 4 MG/2 ML Vial ONE (10:11)
[2022-09-13] MEDS: Pantoprazole 80 MG in Sodium Chloride 0.9% 100 ML IVPB SCH (11:08)
[2022-09-13 11:45] LABS: Hemoglobin A1c 6.2 % (4.0-6.0)
[2022-09-13 13:17] LABS: Hemoglobin 7.3 g/dL (12.0-16.0)
[2022-09-13] MEDS ORDERED: Metolazone 5 MG TAB PO PRN (14:34)
[2022-09-13 19:15] LABS: Hemoglobin 7.9 g/dL (12.0-16.0)
[2022-09-13] MEDS: Simvastatin 10 MG TAB PO SCH (19:59)
[2022-09-14] MEDS: Pantoprazole 80 MG in Sodium Chloride 0.9% 100 ML IVPB SCH (05:08)
[2022-09-14] MEDS ORDERED: Insulin Glargine 30 UNITS/0.3 ML VIAL SC SCH ×2 (05:47→09:00)
[2022-09-14] MEDS: Levothyroxine Sodium 75 MCG TAB PO SCH (05:55)
[2022-09-14 07:28] LABS: #Eosinphils 0.2 thou/uL (0.0-0.7); #Lymphocytes 1.4 thou/uL (1.20-3.40); #Monocytes 0.6 thou/uL (0.11-0.59); #Neutrophils 4.4 thou/uL (1.40-6.50); %Basophils 0.5 % (0.0-1.0); %Eosinophils 2.8 % (0.0-10.0); %Lymphocytes 21.4 % (21.0-51.0); %Monocytes 9.2 % (0.0-10.0); %Neutrophils 66.1 % (42.0-75.0); Hemoglobin 7.4 g/dL (12.0-16.0); Mean Corpuscular HGB CONC 32.4 g/dL (32.0-36.0); Mean Corpuscular Hemoglobin 30.5 pg (27.0-31.0); Mean Corpuscular Volume 94.2 fl (78.0-98.0); Mean Platelet Volume 7.9 fL (7.4-10.4); Platelet Count 145 10x3/uL (130-400); RBC Distribution Width 17.2 % (11.5-14.5); Red Blood Cell (RBC) Count 2.43 mill/uL (4.20-5.40); White Blood Cell (WBC) Count 6.6 10x3/uL (4.8-10.8)
[2022-09-14 07:38] LABS: Anion Gap 11 mmol/L (10-20); BUN (Urea Nitrogen) 34 mg/dL (9.8-20.1); Calc. Creatinine Clearance 27 mL/min (70-130); Calcium 7.9 mg/dL (7.8-10.44); Carbon Dioxide 19 mmol/L (23-31); Chloride 114 mmol/L (98-107); Estimated GFR 22; Glucose 136 mg/dL (80-115); Potassium 3.6 mmol/L (3.5-5.1); Sodium 140 mmol/L (136-145)
[2022-09-14] MEDS ORDERED: EVEROLIMUS 10 MG PO SCH (09:00)
[2022-09-14] MEDS: Ezetimibe 10 MG TAB PO SCH (09:17)
[2022-09-14] MEDS: PARoxetine 20 MG TAB PO SCH (09:17)
[2022-09-14] MEDS: risperiDONE 0.25 MG TAB PO SCH (09:18)
[2022-09-14] MEDS: hydrOXYzine 25 MG TAB PO SCH (09:18)
[2022-09-14] MEDS: Furosemide 20 MG TAB PO SCH (09:18)
[2022-09-14] MEDS: Tamsulosin HCl 0.4 MG CAP PO SCH (09:18)
[2022-09-14] MEDS: Cyproheptadine 4 MG TAB PO SCH (09:19)
[2022-09-14] MEDS: Potassium Chloride 20 MEQ TAB PO SCH (09:19)
[2022-09-14] MEDS: Exemestane 25 MG TAB PO SCH (09:19)
[2022-09-14] MEDS ORDERED: DAPTOmycin 500 MG VIAL IVPB SCH (12:00)
[2022-09-14] MEDS: HumaLOG 300 UNITS/3 ML VIAL SC PRN (18:13)
[2022-09-14 20:14] LABS: Hemoglobin 7.4 g/dL (12.0-16.0)
[2022-09-14] MEDS: Simvastatin 10 MG TAB PO SCH (20:49)
[2022-09-15] MEDS: Levothyroxine Sodium 75 MCG TAB PO SCH (05:41)
[2022-09-15] MEDS ORDERED: Insulin Glargine 30 UNITS/0.3 ML VIAL SC SCH ×2 (06:25→09:00)
[2022-09-15 06:38] LABS: #Eosinphils 0.2 thou/uL (0.0-0.7); #Lymphocytes 1.3 thou/uL (1.20-3.40); #Monocytes 0.4 thou/uL (0.11-0.59); #Neutrophils 4.9 thou/uL (1.40-6.50); %Basophils 0.4 % (0.0-1.0); %Eosinophils 2.2 % (0.0-10.0); %Lymphocytes 18.7 % (21.0-51.0); %Monocytes 6.5 % (0.0-10.0); %Neutrophils 72.2 % (42.0-75.0); Hemoglobin 7.6 g/dL (12.0-16.0); Mean Corpuscular HGB CONC 32.6 g/dL (32.0-36.0); Mean Corpuscular Hemoglobin 30.7 pg (27.0-31.0); Mean Corpuscular Volume 94.3 fl (78.0-98.0); Platelet Count 142 10x3/uL (130-400); RBC Distribution Width 17.2 % (11.5-14.5); Red Blood Cell (RBC) Count 2.46 mill/uL (4.20-5.40); White Blood Cell (WBC) Count 6.8 10x3/uL (4.8-10.8)
[2022-09-15 06:39] LABS: Anion Gap 9 mmol/L (10-20); BUN (Urea Nitrogen) 25 mg/dL (9.8-20.1); Calc. Creatinine Clearance 26 mL/min (70-130); Calcium 7.9 mg/dL (7.8-10.44); Carbon Dioxide 20 mmol/L (23-31); Chloride 114 mmol/L (98-107); Estimated GFR 21; Glucose 165 mg/dL (80-115); Potassium 3.5 mmol/L (3.5-5.1); Sodium 139 mmol/L (136-145)
[2022-09-15 08:26] VITALS: BP 111/68; TEMP 98.8
[2022-09-15] MEDS: PARoxetine 20 MG TAB PO SCH (08:54)
[2022-09-15] MEDS: Furosemide 20 MG TAB PO SCH (08:54)
[2022-09-15] MEDS: Ezetimibe 10 MG TAB PO SCH (08:54)
[2022-09-15] MEDS: Exemestane 25 MG TAB PO SCH (08:54)
[2022-09-15] MEDS: hydrOXYzine 25 MG TAB PO SCH (08:54)
[2022-09-15] MEDS: Cyproheptadine 4 MG TAB PO SCH (08:54)
[2022-09-15] MEDS: risperiDONE 0.25 MG TAB PO SCH (08:55)
[2022-09-15] MEDS: Potassium Chloride 20 MEQ TAB PO SCH (08:55)
[2022-09-15] MEDS: Tamsulosin HCl 0.4 MG CAP PO SCH (08:55)
== END 2022-09-15 16:39 | disposition home health service (06) | DRG 378 ==
LOC: ERS 17:55 → ERHOLD 20:42 → T4-B 09-13 14:55
PROVIDERS: ADMIT Family Medicine; ATTEND Family Medicine
PROC: 0W3P8ZZ Control Bleeding in Gastrointestinal Tract, Via Natural or Artificial Opening Endoscopic (ICD-10-PCS; principal; 2022-09-13)
PROC: 30233N1 Transfusion of Nonautologous Red Blood Cells into Peripheral Vein, Percutaneous Approach (ICD-10-PCS; 2022-09-13)
DX: K31.811 Angiodysplasia of stomach and duodenum with bleeding (principal); C79.51 Secondary malignant neoplasm of bone; N17.9 Acute kidney failure, unspecified; Z66 Do not resuscitate; Z20.822 Contact with and (suspected) exposure to COVID-19; C50.919 Malignant neoplasm of unspecified site of unspecified female breast; E78.5 Hyperlipidemia, unspecified; N18.9 Chronic kidney disease, unspecified; E03.9 Hypothyroidism, unspecified; M79.7 Fibromyalgia; E11.22 Type 2 diabetes mellitus with diabetic chronic kidney disease; F32.A Depression, unspecified; Z88.1 Allergy status to other antibiotic agents; Z79.01 Long term (current) use of anticoagulants; Z79.84 Long term (current) use of oral hypoglycemic drugs; Z79.4 Long term (current) use of insulin; Z79.890 Hormone replacement therapy; Z79.899 Other long term (current) drug therapy; Z90.710 Acquired absence of both cervix and uterus; Z90.49 Acquired absence of other specified parts of digestive tract; D64.9 Anemia, unspecified
CPT/HCPCS: 36415; 36416; 36430; 80048; 80053; 81003; 81015; 82274; 82728; 83036; 83605; 84145; 85025; 86850; 86900; 86901; 86905; 86921; 87040; 93005; 94760; 96365; 96375; 97139; C9113; J1610; J1815; J2405; J2704; J3490; J7050; P9016; U0002

== ENCOUNTER 2022-09-22 08:41 | Day surgery (SDC) | payer MEDICARE, MEDICAID ==
[2022-09-22] MEDS ORDERED: diphenhydrAMINE 25 MG CAP PO SCH (09:00)
[2022-09-22] MEDS ORDERED: Acetaminophen 500 MG TAB PO SCH (09:00)
[2022-09-22] MEDS ORDERED: diphenhydrAMINE 25 MG CAP ONE (09:40)
[2022-09-22] MEDS ORDERED: Acetaminophen 500 MG TAB ONE (09:40)
[2022-09-22 14:47] VITALS: BP 124/62; TEMP 97.8
== END 2022-09-22 14:48 | disposition home or self-care (01) ==
LOC: ONC/OP 08:41
PROVIDERS: ATTEND Internal Medicine Medical Oncology
PROC: 30233N1 Transfusion of Nonautologous Red Blood Cells into Peripheral Vein, Percutaneous Approach (ICD-10-PCS; principal; 2022-09-22)
DX: D64.9 Anemia, unspecified (principal); D69.6 Thrombocytopenia, unspecified; Z88.1 Allergy status to other antibiotic agents
CPT/HCPCS: 36430; 86850; 86900; 86901; 86921; P9016

== ENCOUNTER 2022-10-11 19:12 | Inpatient (IN) | payer MEDICARE, MEDICAID ==
[2022-10-11 19:44] LABS: #Eosinphils 0.1 thou/uL (0.0-0.7); #Lymphocytes 1.6 thou/uL (1.20-3.40); #Monocytes 0.5 thou/uL (0.11-0.59); #Neutrophils 4.8 thou/uL (1.40-6.50); %Basophils 0.6 % (0.0-1.0); %Lymphocytes 22.6 % (21.0-51.0); %Monocytes 6.8 % (0.0-10.0); Hemoglobin 7.9 g/dL (12.0-16.0); Mean Corpuscular HGB CONC 31.9 g/dL (32.0-36.0); Mean Corpuscular Hemoglobin 29.8 pg (27.0-31.0); Mean Corpuscular Volume 93.6 fl (78.0-98.0); Mean Platelet Volume 8.3 fL (7.4-10.4); Platelet Count 215 10x3/uL (130-400); RBC Distribution Width 16.1 % (11.5-14.5); Red Blood Cell (RBC) Count 2.64 mill/uL (4.20-5.40); White Blood Cell (WBC) Count 6.9 10x3/uL (4.8-10.8)
[2022-10-11 19:56] LABS: PTT 32.9 sec (22.9-36.1); Prothrombin Time 23.6 sec (12.0-14.7)
[2022-10-11 20:12] LABS: ALT (SGPT) 13 U/L (8-55); AST (SGOT) 14 U/L (5-34); Albumin 3.6 g/dL (3.4-4.8); Alkaline Phosphatase 59 U/L (40-110); Anion Gap 14 mmol/L (10-20); BUN (Urea Nitrogen) 37 mg/dL (9.8-20.1); Bilirubin, Total 0.4 mg/dL (0.2-1.2); Calc. Creatinine Clearance 0 mL/min (70-130); Calcium 9.1 mg/dL (7.8-10.44); Carbon Dioxide 24 mmol/L (23-31); Chloride 101 mmol/L (98-107); Estimated GFR 17; Globulin 2.7 g/dL (2.4-3.5); Potassium 3.5 mmol/L (3.5-5.1); Protein, Total 6.3 g/dL (5.8-8.1); Sodium 135 mmol/L (136-145)
[2022-10-11 20:16] LABS: Glucose 434 mg/dL (80-115)
[2022-10-11] MEDS ORDERED: Insulin Regular 300 UNITS/3 ML VIAL ONE (20:26)
[2022-10-11] MEDS ORDERED: Cefepime 2 GM VIAL ONE (20:26)
[2022-10-11] MEDS ORDERED: Acetaminophen 325 MG TAB PO PRN (21:38)
[2022-10-11] MEDS ORDERED: Dextrose 50% Abboject 50 ML SYRINGE SLOW IVP PRN ×2 (21:50→21:54)
[2022-10-11] MEDS ORDERED: Dextrose 5% in Water 1,000 ML IV PRN ×2 (21:50→21:54)
[2022-10-11] MEDS ORDERED: HumaLOG 300 UNITS/3 ML VIAL SC PRN ×2 (21:50→22:01)
[2022-10-11] MEDS ORDERED: Insulin Glargine 30 UNITS/0.3 ML VIAL SC SCH (22:30)
[2022-10-11 22:36] LABS: Lactic Acid 1.5 mmol/L (0.5-2.2)
[2022-10-11 22:38] LABS: Bilirubin Negative (Negative); Blood, Urine 1+ (Negative); Clarity Clear (Clear); Glucose, Urine (Dipstick) Greater than 1000 mg/dL (Negative); Ketone, Urine Negative (Negative); Leukocyte 250 Leu/uL (Negative); Nitrite Negative (Negative); Protein, Urine (Dipstick) 10 mg/dL (Neg-Trace); RBC/HPF 0-3 HPF (0-3); Renal Epithelial 0-3 HPF (None Seen); Specific Gravity, Urine 1.008 (1.002-1.036); Squamous Epithelial None Seen HPF (0-3); Urobilinogen Normal mg/dL (Less than 2)
[2022-10-11 22:41] LABS: Bacteria/HPF Rare-Few HPF (None Seen)
[2022-10-11] MEDS ORDERED: Pantoprazole 40 MG VIAL ONE (23:49)
[2022-10-12] MEDS: Lactated Ringer's 1,000 ML IV SCH ×2 (00:10→16:41)
[2022-10-12] MEDS: Pantoprazole 40 MG VIAL IVP SCH ×3 (00:10→21:54)
[2022-10-12 01:44] LABS: Hemoglobin 6.6 g/dL (12.0-16.0)
[2022-10-12 02:22] LABS: ALT (SGPT) 11 U/L (8-55); AST (SGOT) 11 U/L (5-34); Albumin 2.9 g/dL (3.4-4.8); Alkaline Phosphatase 53 U/L (40-110); Anion Gap 12 mmol/L (10-20); BUN (Urea Nitrogen) 38 mg/dL (9.8-20.1); Bilirubin, Total 0.4 mg/dL (0.2-1.2); Calc. Creatinine Clearance 25 mL/min (70-130); Calcium 8.5 mg/dL (7.8-10.44); Carbon Dioxide 24 mmol/L (23-31); Chloride 105 mmol/L (98-107); Estimated GFR 21; Globulin 2.3 g/dL (2.4-3.5); Glucose 248 mg/dL (80-115); Protein, Total 5.2 g/dL (5.8-8.1); Sodium 138 mmol/L (136-145)
[2022-10-12 04:33] LABS: Anion Gap 12 mmol/L (10-20); BUN (Urea Nitrogen) 35 mg/dL (9.8-20.1); Calc. Creatinine Clearance 26 mL/min (70-130); Calcium 8.4 mg/dL (7.8-10.44); Carbon Dioxide 23 mmol/L (23-31); Chloride 107 mmol/L (98-107); Estimated GFR 21; Glucose 242 mg/dL (80-115); Potassium 3.2 mmol/L (3.5-5.1); Sodium 139 mmol/L (136-145)
[2022-10-12] MEDS ORDERED: Potassium Chloride 20 MEQ TAB PO SCH (04:45)
[2022-10-12 05:08] LABS: SARS-CoV-2 NAA Rapid Test Not Detected (NotDetected)
[2022-10-12] MEDS ORDERED: Potassium Chloride 20 MEQ TAB ONE (05:30)
[2022-10-12] MEDS ORDERED: Pantoprazole 40 MG VIAL ONE (10:12)
[2022-10-12 10:18] LABS: Hemoglobin 8.5 g/dL (12.0-16.0); Platelet Count 171 10x3/uL (130-400)
[2022-10-12 14:26] VITALS: BMI 30.1
[2022-10-12] MEDS: Potassium Chloride 20 MEQ TAB PO SCH ×2 (20:13→23:07)
[2022-10-12] MEDS ORDERED: Atorvastatin Calcium 40 MG TAB PO SCH (21:00)
[2022-10-12] MEDS ORDERED: Diltiazem HCl CD 300 mg Capsule PO SCH (21:00)
[2022-10-12] MEDS ORDERED: Insulin Glargine 30 UNITS/0.3 ML VIAL SC SCH ×2 (21:00)
[2022-10-12 21:01] LABS: Albumin 3.1 g/dL (3.4-4.8); Anion Gap 11 mmol/L (10-20); BUN (Urea Nitrogen) 36 mg/dL (9.8-20.1); BUN/Creatinine Ratio 16.82; Calc. Creatinine Clearance 31 mL/min (70-130); Calcium 8.3 mg/dL (7.8-10.44); Carbon Dioxide 25 mmol/L (23-31); Chloride 111 mmol/L (98-107); Estimated GFR 24; Glucose 241 mg/dL (80-115); Phosphorus 2.2 mg/dL (2.3-4.7); Potassium 3.6 mmol/L (3.5-5.1); Sodium 143 mmol/L (136-145)
[2022-10-13 05:11] LABS: #Eosinphils 0.1 thou/uL (0.0-0.7); #Lymphocytes 1.5 thou/uL (1.20-3.40); #Monocytes 0.5 thou/uL (0.11-0.59); #Neutrophils 4.3 thou/uL (1.40-6.50); %Basophils 0.6 % (0.0-1.0); %Lymphocytes 23.2 % (21.0-51.0); %Monocytes 7.6 % (0.0-10.0); %Neutrophils 66.6 % (42.0-75.0); Hemoglobin 7.1 g/dL (12.0-16.0); Mean Corpuscular HGB CONC 31.8 g/dL (32.0-36.0); Mean Corpuscular Volume 94.1 fl (78.0-98.0); Mean Platelet Volume 7.9 fL (7.4-10.4); Platelet Count 162 10x3/uL (130-400); RBC Distribution Width 15.4 % (11.5-14.5); Red Blood Cell (RBC) Count 2.36 mill/uL (4.20-5.40); White Blood Cell (WBC) Count 6.4 10x3/uL (4.8-10.8)
[2022-10-13 05:43] LABS: Iron 47 ug/dL (50-170); Iron Binding Capacity, Total 248 mcg/dL (265-497)
[2022-10-13 05:48] LABS: Anion Gap 10 mmol/L (10-20); BUN (Urea Nitrogen) 35 mg/dL (9.8-20.1); Calc. Creatinine Clearance 32 mL/min (70-130); Calcium 8.4 mg/dL (7.8-10.44); Carbon Dioxide 23 mmol/L (23-31); Chloride 113 mmol/L (98-107); Estimated GFR 26; Glucose 216 mg/dL (80-115); Iron 48 ug/dL (50-170); Iron Binding Capacity, Total 248 mcg/dL (265-497); Potassium 4.5 mmol/L (3.5-5.1); Sodium 141 mmol/L (136-145); Transferrin, Serum 198 mg/dL (173-360)
[2022-10-13] MEDS ORDERED: Levothyroxine Sodium 75 MCG TAB PO SCH ×2 (06:00→09:00)
[2022-10-13 06:06] LABS: Ferritin 72.47 ng/mL (10-291)
[2022-10-13] MEDS: Pantoprazole 40 MG VIAL IVP SCH ×2 (08:59→21:27)
[2022-10-13] MEDS ORDERED: Tamsulosin HCl 0.4 MG CAP PO SCH (09:00)
[2022-10-13] MEDS ORDERED: Ezetimibe 10 MG TAB PO SCH (09:00)
[2022-10-13] MEDS ORDERED: risperiDONE 0.25 MG TAB PO SCH (09:00)
[2022-10-13] MEDS ORDERED: Insulin Glargine 30 UNITS/0.3 ML VIAL SC SCH ×2 (09:00→21:00)
[2022-10-13] MEDS ORDERED: PARoxetine 20 MG TAB PO SCH (09:00)
[2022-10-13] MEDS ORDERED: PHENYLEPHRINE-NS 100 MCG/ML 10 ML SYRINGE ONE (14:30)
[2022-10-13] MEDS ORDERED: Lidocaine 1% PF 5 ML VIAL ONE (14:30)
[2022-10-13] MEDS ORDERED: PROPOFOL 200 MG/20 ML VIAL ONE (14:30)
[2022-10-13] MEDS ORDERED: Fentanyl 100 MCG/2 ML VIAL ONE (15:09)
[2022-10-13] MEDS ORDERED: Morphine Sulfate 2 MG/ML SYRINGE SLOW IVP PRN (15:10)
[2022-10-13] MEDS ORDERED: Ondansetron HCl/PF 4 MG/2 ML Vial IVP PRN (15:10)
[2022-10-13] MEDS ORDERED: Promethazine HCl 25 MG/ML VIAL IM PRN (15:10)
[2022-10-13] MEDS ORDERED: Ondansetron PF 4 MG/2 ML Vial IVP SCH (16:30)
[2022-10-13] MEDS: Dronedarone HCl 400 MG TAB PO SCH (16:55)
[2022-10-13] MEDS ORDERED: Dronedarone HCl 400 MG TAB PO SCH (17:00)
[2022-10-13] MEDS ORDERED: Dextrose 5% in Water 1,000 ML IV PRN (17:06)
[2022-10-13] MEDS ORDERED: Dextrose 50% Abboject 50 ML SYRINGE SLOW IVP PRN (17:07)
[2022-10-13] MEDS ORDERED: HumaLOG 300 UNITS/3 ML VIAL SC PRN (17:08)
[2022-10-13 18:05] LABS: Hemoglobin 7.1 g/dL (12.0-16.0)
[2022-10-13] MEDS ORDERED: Nortriptyline HCl 25 MG CAP PO SCH ×2 (21:00)
[2022-10-13] MEDS ORDERED: Cyproheptadine 4 MG TAB PO SCH ×2 (21:00)
[2022-10-13] MEDS ORDERED: Atorvastatin Calcium 40 MG TAB PO SCH (21:00)
[2022-10-13] MEDS ORDERED: NORTRIPTYLINE HCL 50 MG PO SCH (21:00)
[2022-10-13] MEDS: HumaLOG 300 UNITS/3 ML VIAL SC PRN (21:45)
[2022-10-14 05:11] LABS: Hemoglobin 7.9 g/dL (12.0-16.0)
[2022-10-14 05:29] LABS: Anion Gap 11 mmol/L (10-20); BUN (Urea Nitrogen) 32 mg/dL (9.8-20.1); Calc. Creatinine Clearance 36 mL/min (70-130); Calcium 8.5 mg/dL (7.8-10.44); Carbon Dioxide 22 mmol/L (23-31); Chloride 112 mmol/L (98-107); Estimated GFR 31; Glucose 203 mg/dL (80-115); Potassium 3.7 mmol/L (3.5-5.1); Sodium 141 mmol/L (136-145)
[2022-10-14 05:31] LABS: Albumin 2.8 g/dL (3.4-4.8); Anion Gap 10 mmol/L (10-20); BUN (Urea Nitrogen) 32 mg/dL (9.8-20.1); BUN/Creatinine Ratio 17.78; Calc. Creatinine Clearance 35 mL/min (70-130); Calcium 8.5 mg/dL (7.8-10.44); Carbon Dioxide 24 mmol/L (23-31); Chloride 111 mmol/L (98-107); Estimated GFR 30; Glucose 205 mg/dL (80-115); Phosphorus 2.4 mg/dL (2.3-4.7); Potassium 3.7 mmol/L (3.5-5.1); Sodium 141 mmol/L (136-145)
[2022-10-14] MEDS ORDERED: Levothyroxine Sodium 75 MCG TAB PO SCH (06:00)
[2022-10-14] MEDS: HumaLOG 300 UNITS/3 ML VIAL SC PRN (06:29)
[2022-10-14] MEDS ORDERED: Insulin Glargine 30 UNITS/0.3 ML VIAL SC SCH ×2 (08:30→21:00)
[2022-10-14] MEDS ORDERED: Ezetimibe 10 MG TAB PO SCH (09:00)
[2022-10-14] MEDS ORDERED: PARoxetine 20 MG TAB PO SCH (09:00)
[2022-10-14] MEDS ORDERED: risperiDONE 0.25 MG TAB PO SCH ×2 (09:00→21:00)
[2022-10-14] MEDS ORDERED: Tamsulosin HCl 0.4 MG CAP PO SCH (09:00)
[2022-10-14] MEDS: Dronedarone HCl 400 MG TAB PO SCH ×2 (09:16→18:40)
[2022-10-14] MEDS: Pantoprazole 40 MG VIAL IVP SCH (09:17)
[2022-10-14 18:27] VITALS: BP 123/57; TEMP 98.7
== END 2022-10-14 18:53 | disposition home health service (06) | DRG 378 ==
LOC: ERS 19:12 → ERHOLD 21:04 → 2SW 10-12 13:47 → OBSVTOIN 10-12 17:08 → UNDODISIN 10-13 14:30
PROVIDERS: ADMIT Family Medicine; ATTEND Student in an Organized Health Care Education/Training Program
PROC: 30233N1 Transfusion of Nonautologous Red Blood Cells into Peripheral Vein, Percutaneous Approach (ICD-10-PCS; 2022-10-12)
PROC: 0W3P8ZZ Control Bleeding in Gastrointestinal Tract, Via Natural or Artificial Opening Endoscopic (ICD-10-PCS; principal; 2022-10-13)
DX: K25.4 Chronic or unspecified gastric ulcer with hemorrhage (principal); C79.51 Secondary malignant neoplasm of bone; N17.9 Acute kidney failure, unspecified; N18.4 Chronic kidney disease, stage 4 (severe); E87.20 Acidosis, unspecified; L02.213 Cutaneous abscess of chest wall; L03.313 Cellulitis of chest wall; Z66 Do not resuscitate; Z20.822 Contact with and (suspected) exposure to COVID-19; E11.65 Type 2 diabetes mellitus with hyperglycemia; I89.0 Lymphedema, not elsewhere classified; F32.A Depression, unspecified; I12.9 Hypertensive chronic kidney disease with stage 1 through stage 4 chronic kidney disease, or unspecified chronic kidney disease; E78.5 Hyperlipidemia, unspecified; M79.7 Fibromyalgia; E03.9 Hypothyroidism, unspecified; C50.912 Malignant neoplasm of unspecified site of left female breast; D63.1 Anemia in chronic kidney disease; I48.0 Paroxysmal atrial fibrillation; R82.71 Bacteriuria; Z95.0 Presence of cardiac pacemaker; Z88.1 Allergy status to other antibiotic agents; Z79.899 Other long term (current) drug therapy; Z79.890 Hormone replacement therapy; Z90.710 Acquired absence of both cervix and uterus; Z90.49 Acquired absence of other specified parts of digestive tract; Z82.49 Family history of ischemic heart disease and other diseases of the circulatory system; Z83.6 Family history of other diseases of the respiratory system; Z82.3 Family history of stroke
CPT/HCPCS: 36415; 36416; 36430; 80048; 80053; 80069; 81003; 81015; 82607; 82728; 83540; 83550; 83605; 84466; 84484; 85014; 85018; 85025; 85610; 85730; 86850; 86900; 86901; 86922; 87040; 87086; 96374; 96375; 96376; 97139; C9113; G0378; J0692; J1815; J2405; J2704; J3010; J7120; P9016; U0002

== ENCOUNTER 2022-12-14 11:57 | Emergency (ER) | payer MEDICARE, MEDICAID ==
[2022-12-14 13:46] LABS: #Eosinphils 0.2 thou/uL (0.0-0.7); #Lymphocytes 1.5 thou/uL (1.20-3.40); #Monocytes 0.9 thou/uL (0.11-0.59); #Neutrophils 8.2 thou/uL (1.40-6.50); %Basophils 0.2 % (0.0-1.0); %Eosinophils 1.8 % (0.0-10.0); %Monocytes 8.4 % (0.0-10.0); %Neutrophils 75.7 % (42.0-75.0); Hemoglobin 11.7 g/dL (12.0-16.0); Mean Corpuscular HGB CONC 31.2 g/dL (32.0-36.0); Mean Corpuscular Hemoglobin 29.2 pg (27.0-31.0); Mean Corpuscular Volume 93.6 fl (78.0-98.0); Mean Platelet Volume 7.4 fL (7.4-10.4); Platelet Count 268 10x3/uL (130-400); Red Blood Cell (RBC) Count 4.01 mill/uL (4.20-5.40); White Blood Cell (WBC) Count 10.8 10x3/uL (4.8-10.8)
[2022-12-14 14:10] LABS: ALT (SGPT) 7 U/L (8-55); AST (SGOT) 16 U/L (5-34); Albumin 3.4 g/dL (3.4-4.8); Alkaline Phosphatase 103 U/L (40-110); Anion Gap 13 mmol/L (10-20); BUN (Urea Nitrogen) 13 mg/dL (9.8-20.1); Bilirubin, Total 0.3 mg/dL (0.2-1.2); Calc. Creatinine Clearance 0 mL/min (70-130); Calcium 9.5 mg/dL (7.8-10.44); Carbon Dioxide 24 mmol/L (23-31); Chloride 106 mmol/L (98-107); Estimated GFR 41; Globulin 3.2 g/dL (2.4-3.5); Glucose 146 mg/dL (80-115); Potassium 3.7 mmol/L (3.5-5.1); Protein, Total 6.6 g/dL (5.8-8.1); Sodium 139 mmol/L (136-145)
[2022-12-14 14:45] LABS: #Basophils 0.1 thou/uL (0.0-0.2); #Eosinphils 0.3 thou/uL (0.0-0.7); #Lymphocytes 1.9 thou/uL (1.20-3.40); %Basophils 0.5 % (0.0-1.0); %Eosinophils 2.4 % (0.0-10.0); %Lymphocytes 15.7 % (21.0-51.0); %Monocytes 8.3 % (0.0-10.0); %Neutrophils 73.1 % (42.0-75.0); Hemoglobin 11.6 g/dL (12.0-16.0); Mean Corpuscular HGB CONC 30.6 g/dL (32.0-36.0); Mean Corpuscular Hemoglobin 28.7 pg (27.0-31.0); Mean Corpuscular Volume 93.8 fl (78.0-98.0); Mean Platelet Volume 8.1 fL (7.4-10.4); Platelet Count 246 10x3/uL (130-400); RBC Distribution Width 17.9 % (11.5-14.5); Red Blood Cell (RBC) Count 4.05 mill/uL (4.20-5.40); White Blood Cell (WBC) Count 12.2 10x3/uL (4.8-10.8)
[2022-12-14 15:02] LABS: INR-International Normal Ratio 1.2; Prothrombin Time 15.5 sec (12.0-14.7)
[2022-12-14 15:03] LABS: PTT 32.2 sec (22.9-36.1)
[2022-12-14 15:19] LABS: ALT (SGPT) 7 U/L (8-55); AST (SGOT) 17 U/L (5-34); Albumin 3.2 g/dL (3.4-4.8); Alkaline Phosphatase 97 U/L (40-110); Anion Gap 13 mmol/L (10-20); BUN (Urea Nitrogen) 13 mg/dL (9.8-20.1); Bilirubin, Total 0.3 mg/dL (0.2-1.2); Calc. Creatinine Clearance 0 mL/min (70-130); Calcium 8.8 mg/dL (7.8-10.44); Carbon Dioxide 23 mmol/L (23-31); Chloride 106 mmol/L (98-107); Estimated GFR 44; Globulin 3.1 g/dL (2.4-3.5); Glucose 136 mg/dL (80-115); Potassium 4.1 mmol/L (3.5-5.1); Protein, Total 6.3 g/dL (5.8-8.1); Sodium 138 mmol/L (136-145)
[2022-12-14 16:35] LABS: Bacteria/HPF None Seen HPF (None Seen); Bilirubin Negative (Negative); Blood, Urine 1+ (Negative); Clarity Clear (Clear); Glucose, Urine (Dipstick) Normal (Negative); Ketone, Urine Negative (Negative); Leukocyte Negative Leu/uL (Negative); Nitrite Negative (Negative); Protein, Urine (Dipstick) Negative (Neg-Trace); Specific Gravity, Urine 1.005 (1.002-1.036); Squamous Epithelial None Seen HPF (0-3); Urobilinogen Normal mg/dL (Less than 2); WBC/HPF 0-3 HPF (0-3)
== END 2022-12-14 17:39 | disposition home or self-care (01) ==
LOC: ERS 11:57
DX: R41.82 Altered mental status, unspecified (principal); R31.9 Hematuria, unspecified; D72.829 Elevated white blood cell count, unspecified; E11.9 Type 2 diabetes mellitus without complications; I10 Essential (primary) hypertension; E03.9 Hypothyroidism, unspecified
CPT/HCPCS: 36415; 36416; 51701; 70450; 71045; 80053; 81003; 81015; 83605; 84443; 84484; 85025; 85610; 85730; 87040; 87086; 93005; 94760

== ENCOUNTER 2023-07-20 11:45 | Outpatient (CLI) | payer MEDICARE, MEDICAID | END 2023-07-20 11:46 | disposition home or self-care (01) | LOC: PET 11:45 | PROVIDERS: ATTEND Internal Medicine | DX: C50.412 Malignant neoplasm of upper-outer quadrant of left female breast (principal); C79.51 Secondary malignant neoplasm of bone; R91.1 Solitary pulmonary nodule | CPT/HCPCS: 78815; A9552 ==

== ENCOUNTER 2023-10-05 10:18 | Emergency (ER) | payer MEDICARE, MEDICAID ==
[2023-10-05 11:05] LABS: #Eosinphils 0.3 thou/uL (0.0-0.7); #Monocytes 0.1 thou/uL (0.11-0.59); #Neutrophils 5.5 thou/uL (1.40-6.50); %Basophils 0.3 % (0.0-1.0); %Eosinophils 4.1 % (0.0-10.0); %Lymphocytes 14.7 % (21.0-51.0); %Monocytes 1.7 % (0.0-10.0); %Neutrophils 78.6 % (42.0-75.0); Hematocrit 33.3 % (36.0-47.0); Hemoglobin 10.5 g/dL (12.0-16.0); Mean Corpuscular HGB CONC 31.5 g/dL (32.0-36.0); Mean Corpuscular Hemoglobin 27.6 pg (27.0-31.0); Mean Corpuscular Volume 87.6 fl (78.0-98.0); Mean Platelet Volume 9.9 fL (7.4-10.4); Platelet Count 114 10x3/uL (130-400); RBC Distribution Width 17.9 % (11.5-14.5)
[2023-10-05 11:49] LABS: ALT (SGPT) 10 U/L (8-55); AST (SGOT) 20 U/L (5-34); Albumin 3.1 g/dL (3.4-4.8); Alkaline Phosphatase 66 U/L (40-110); Anion Gap 13 mmol/L (10-20); BUN (Urea Nitrogen) 29 mg/dL (9.8-20.1); Bilirubin, Total 0.6 mg/dL (0.2-1.2); Calc. Creatinine Clearance 0 mL/min (70-130); Calcium 7.3 mg/dL (7.8-10.44); Carbon Dioxide 20 mmol/L (23-31); Chloride 106 mmol/L (98-107); Estimated GFR 20; Globulin 2.6 g/dL (2.4-3.5); Glucose 114 mg/dL (83-110); Potassium 3.1 mmol/L (3.5-5.1); Protein, Total 5.7 g/dL (5.8-8.1); Sodium 136 mmol/L (136-145)
[2023-10-05] MEDS ORDERED: Potassium Chloride 20 MEQ TAB ONE (12:29)
== END 2023-10-05 13:31 | disposition home or self-care (01) ==
LOC: ERS 10:18
DX: E87.6 Hypokalemia (principal); R19.7 Diarrhea, unspecified; I12.9 Hypertensive chronic kidney disease with stage 1 through stage 4 chronic kidney disease, or unspecified chronic kidney disease; E11.22 Type 2 diabetes mellitus with diabetic chronic kidney disease; N18.4 Chronic kidney disease, stage 4 (severe); C79.81 Secondary malignant neoplasm of breast; I48.91 Unspecified atrial fibrillation
CPT/HCPCS: 36415; 80053; 85025; 93005; 94760; 96360; 96361

== ENCOUNTER 2023-10-09 15:18 | Inpatient (IN) | payer MEDICARE, MEDICAID ==
[2023-10-09 20:11] LABS: ALT (SGPT) 12 U/L (8-55); AST (SGOT) 19 U/L (5-34); Albumin 2.9 g/dL (3.4-4.8); Alkaline Phosphatase 68 U/L (40-110); Anion Gap 11 mmol/L (10-20); BUN (Urea Nitrogen) 23 mg/dL (9.8-20.1); Bilirubin, Total 0.6 mg/dL (0.2-1.2); Calc. Creatinine Clearance 32 mL/min (70-130); Carbon Dioxide 16 mmol/L (23-31); Chloride 106 mmol/L (98-107); Estimated GFR 24; Globulin 2.3 g/dL (2.4-3.5); Glucose 100 mg/dL (83-110); Protein, Total 5.2 g/dL (5.8-8.1); Sodium 131 mmol/L (136-145)
[2023-10-09] MEDS ORDERED: Sodium Chloride 0.9% 1,000 ML IV SCH ×3 (20:15→20:51)
[2023-10-09 20:32] LABS: Calcium 6.6 mg/dL (7.8-10.44); Critical Call Chemistry NUR.BJN1@2032; Potassium 2.4 mmol/L (3.5-5.1)
[2023-10-09] MEDS ORDERED: Potassium Chloride 20 MEQ in Premix 1 BAG IVPB SCH (21:00)
[2023-10-09] MEDS ORDERED: CALCIUM GLUC 1 GM/NS 50 ML 1 GM in Premix 1 BAG IVPB SCH (21:00)
[2023-10-09 21:36] LABS: Magnesium 1.7 mg/dL (1.6-2.6); Phosphorus 2.1 mg/dL (2.3-4.7)
[2023-10-09] MEDS ORDERED: Magnesium 2 GM/50 ML(in water) 2 GM in Premix 1 BAG IVPB SCH (22:00)
[2023-10-09] MEDS: Heparin 5,000 UNITS/ML VIAL SC SCH (22:12)
[2023-10-10 05:09] LABS: Hematocrit 32.6 % (36.0-47.0); Hemoglobin 10.4 g/dL (12.0-16.0); Manual Diff?? YES; Mean Corpuscular HGB CONC 31.9 g/dL (32.0-36.0); Mean Corpuscular Hemoglobin 27.2 pg (27.0-31.0); Mean Corpuscular Volume 85.3 fl (78.0-98.0); Mean Platelet Volume 9.2 fL (7.4-10.4); Platelet Count 196 10x3/uL (130-400); RBC Distribution Width 18.1 % (11.5-14.5); Red Blood Cell (RBC) Count 3.82 mill/uL (4.20-5.40); White Blood Cell (WBC) Count 1.3 10x3/uL (4.8-10.8)
[2023-10-10 05:19] LABS: Delete Auto Diff?? YES
[2023-10-10 05:37] LABS: ALT (SGPT) 12 U/L (8-55); AST (SGOT) 22 U/L (5-34); Alkaline Phosphatase 75 U/L (40-110); Anion Gap 14 mmol/L (10-20); BUN (Urea Nitrogen) 23 mg/dL (9.8-20.1); Bilirubin, Total 0.7 mg/dL (0.2-1.2); Calc. Creatinine Clearance 30 mL/min (70-130); Carbon Dioxide 14 mmol/L (23-31); Chloride 106 mmol/L (98-107); Estimated GFR 23; Globulin 2.5 g/dL (2.4-3.5); Glucose 96 mg/dL (83-110); Magnesium 2.2 mg/dL (1.6-2.6); Protein, Total 5.5 g/dL (5.8-8.1); Sodium 132 mmol/L (136-145)
[2023-10-10 05:44] LABS: Calcium 6.9 mg/dL (7.8-10.44); Critical Call Chemistry nur.bjn1@0544; Potassium 2.4 mmol/L (3.5-5.1)
[2023-10-10 05:46] LABS: Anisocytosis SLIGHT = 6-15 cells HPF (0-5); Band 10 % (5-11); Burr Cells MODERATE= 6-15 cells HPF (0-1); CellaVision Operator ID lab.sh2; Dohle Bodies SLIGHT; Large Platelets 40.3 % (0-5); Lymphocytes 45 % (21-51); Monocytes 22 % (0-10); Neutrophil 22 % (42-75); Ovalocytes MODERATE= 6-15 cells HPF (0-1); Platelet Adequacy Comment Platelets Normal; Platelet Clumps 1.3 % (0-5); Poikilocytosis MODERATE=16-30 cells HPF (0-5); Polychromasia SLIGHT = 2-3 cells HPF (0-2); Smudge Cells 58.4 %; Tear Drops SLIGHT = 2-5 cells HPF (0-1); Total Cell Count 77; Toxic Granulation SLIGHT; Vacuoles MODERATE
[2023-10-10] MEDS ORDERED: Potassium Chloride 20 MEQ in Premix 1 BAG IVPB SCH ×4 (06:00→21:30)
[2023-10-10] MEDS ORDERED: CALCIUM GLUC 1 GM/NS 50 ML 1 GM in Premix 1 BAG IVPB SCH (06:00)
[2023-10-10] MEDS: Levothyroxine Sodium 100 MCG TAB PO SCH (06:29)
[2023-10-10] MEDS ORDERED: Potassium Phosphate 9 MMOL in Sodium Chloride 0.9% 100 ML IVPB SCH (06:30)
[2023-10-10] MEDS: Heparin 5,000 UNITS/ML VIAL SC SCH ×3 (08:20→20:43)
[2023-10-10] MEDS ORDERED: Furosemide 20 MG TAB PO SCH (09:00)
[2023-10-10] MEDS: Ezetimibe 10 MG TAB PO SCH (11:25)
[2023-10-10] MEDS: Tamsulosin HCl 0.4 MG CAP PO SCH (11:25)
[2023-10-10] MEDS: Atorvastatin Calcium 40 MG TAB PO SCH (11:25)
[2023-10-10] MEDS: Potassium Chloride 20 MEQ TAB PO SCH (11:25)
[2023-10-10] MEDS: Cholecalciferol 1,000 UNITS (25 MCG) TAB PO SCH (11:25)
[2023-10-10] MEDS: Dronedarone HCl 400 MG TAB PO SCH ×2 (11:26→17:44)
[2023-10-10 12:25] LABS: Anion Gap 18 mmol/L (10-20); BUN (Urea Nitrogen) 26 mg/dL (9.8-20.1); Calc. Creatinine Clearance 29 mL/min (70-130); Carbon Dioxide 14 mmol/L (23-31); Chloride 104 mmol/L (98-107); Estimated GFR 21; Glucose 94 mg/dL (83-110); Sodium 134 mmol/L (136-145)
[2023-10-10 12:35] LABS: Potassium 2.4 mmol/L (3.5-5.1)
[2023-10-10] MEDS ORDERED: Potassium Chloride 20 MEQ TAB PO SCH ×2 (13:00→21:30)
[2023-10-10] MEDS: Potassium Chloride 20 MEQ in Premix 1 BAG IVPB SCH ×2 (14:43→17:49)
[2023-10-10 14:44] LABS: Magnesium 2.1 mg/dL (1.6-2.6); Phosphorus 3.4 mg/dL (2.3-4.7)
[2023-10-10] MEDS ORDERED: Simethicone Chewable 80 MG TAB PO PRN (15:30)
[2023-10-10 19:59] LABS: Anion Gap 19 mmol/L (10-20); BUN (Urea Nitrogen) 28 mg/dL (9.8-20.1); Calc. Creatinine Clearance 29 mL/min (70-130); Carbon Dioxide 11 mmol/L (23-31); Chloride 104 mmol/L (98-107); Estimated GFR 21; Glucose 96 mg/dL (83-110); Potassium 2.8 mmol/L (3.5-5.1); Sodium 131 mmol/L (136-145)
[2023-10-10 20:26] LABS: Calcium 6.8 mg/dL (7.8-10.44); Critical Call Chemistry NUR.ADP@2025
[2023-10-10] MEDS: cefTRIAXone\\ROCEPHIN 1 GM in Sodium Chloride 0.9% 100 ML IVPB SCH (20:42)
[2023-10-10] MEDS ORDERED: Calcium Carbonate 500 MG ChewTAB PO SCH (21:30)
[2023-10-11] MEDS ORDERED: Vancomycin HCl 125 MG/5 ML (BATCHED) UDCUP PO SCH (01:15)
[2023-10-11] MEDS: Vancomycin HCl 125 MG Capsule PO SCH ×4 (01:50→20:21)
[2023-10-11 04:03] LABS: Hematocrit 29.9 % (36.0-47.0); Manual Diff?? YES; Mean Corpuscular HGB CONC 33.4 g/dL (32.0-36.0); Mean Corpuscular Hemoglobin 26.9 pg (27.0-31.0); Mean Platelet Volume 9.5 fL (7.4-10.4); Platelet Count 278 10x3/uL (130-400); Red Blood Cell (RBC) Count 3.72 mill/uL (4.20-5.40); White Blood Cell (WBC) Count 2.4 10x3/uL (4.8-10.8)
[2023-10-11 04:09] LABS: Delete Auto Diff?? YES; Mean Corpuscular Volume 80.4 fl (78.0-98.0)
[2023-10-11 04:28] LABS: ALT (SGPT) 18 U/L (8-55); AST (SGOT) 26 U/L (5-34); Albumin 2.7 g/dL (3.4-4.8); Alkaline Phosphatase 70 U/L (40-110); Anion Gap 16 mmol/L (10-20); BUN (Urea Nitrogen) 30 mg/dL (9.8-20.1); Bilirubin, Total 0.5 mg/dL (0.2-1.2); Calc. Creatinine Clearance 27 mL/min (70-130); Carbon Dioxide 12 mmol/L (23-31); Chloride 104 mmol/L (98-107); Estimated GFR 19; Glucose 106 mg/dL (83-110); Potassium 2.9 mmol/L (3.5-5.1); Protein, Total 5.7 g/dL (5.8-8.1); Sodium 129 mmol/L (136-145)
[2023-10-11 04:33] LABS: Calcium 6.4 mg/dL (7.8-10.44); Critical Call Chemistry NUR.KH5 @0432
[2023-10-11 04:39] LABS: Band 14 % (5-11); CellaVision Operator ID LAB.CLH1; Elliptocytes SLIGHT = 2-5 cells HPF (0-1); Eosinophils 1 % (0-10); Hypochromia SLIGHT = 6-15 cells HPF (0-5); Large Platelets 23.9 % (0-5); Lymphocytes 19 % (21-51); Macrocytosis SLIGHT = 6-15 cells HPF (0-5); Metamyelocyte 8 % (0-0); Monocytes 37 % (0-10); Neutrophil 13 % (42-75); Platelet Adequacy Comment Platelets Normal; Polychromasia SLIGHT = 2-3 cells HPF (0-2); Promyelocytes 6 % (0-0); Reactive Lymphocytes 1 % (0-10); Total Cell Count 142; Toxic Granulation SLIGHT; Vacuoles SLIGHT
[2023-10-11] MEDS ORDERED: Potassium Chloride 20 MEQ TAB PO SCH ×3 (04:45→21:30)
[2023-10-11] MEDS ORDERED: Potassium Chloride 20 MEQ in Premix 1 BAG IVPB SCH ×2 (05:00→05:15)
[2023-10-11] MEDS: Levothyroxine Sodium 100 MCG TAB PO SCH (05:30)
[2023-10-11] MEDS ORDERED: Furosemide 40 MG (4 mL) VIAL SLOW IVP SCH ×2 (07:30→16:45)
[2023-10-11] MEDS: Atorvastatin Calcium 40 MG TAB PO SCH (08:19)
[2023-10-11] MEDS: Potassium Chloride 20 MEQ TAB PO SCH (08:19)
[2023-10-11] MEDS: Heparin 5,000 UNITS/ML VIAL SC SCH ×3 (08:19→20:21)
[2023-10-11] MEDS: Ezetimibe 10 MG TAB PO SCH (08:20)
[2023-10-11] MEDS: Cholecalciferol 1,000 UNITS (25 MCG) TAB PO SCH (08:20)
[2023-10-11] MEDS: Dronedarone HCl 400 MG TAB PO SCH ×2 (08:20→16:52)
[2023-10-11] MEDS: Tamsulosin HCl 0.4 MG CAP PO SCH (08:20)
[2023-10-11 09:28] LABS: Phosphorus 3.1 mg/dL (2.3-4.7)
[2023-10-11 09:30] LABS: Magnesium 2.1 mg/dL (1.6-2.6)
[2023-10-11] MEDS ORDERED: Doxycycline 100 MG CAP PO SCH (10:00)
[2023-10-11] MEDS ORDERED: PARoxetine 20 MG TAB PO SCH (10:15)
[2023-10-11 11:19] LABS: Anion Gap 15 mmol/L (10-20); BUN (Urea Nitrogen) 35 mg/dL (9.8-20.1); Calc. Creatinine Clearance 26 mL/min (70-130); Carbon Dioxide 11 mmol/L (23-31); Chloride 107 mmol/L (98-107); Estimated GFR 18; Glucose 101 mg/dL (83-110); Potassium 3.2 mmol/L (3.5-5.1); Sodium 130 mmol/L (136-145)
[2023-10-11 11:23] LABS: Calcium 6.4 mg/dL (7.8-10.44); Critical Call Chemistry NUR.KEW@1122
[2023-10-11] MEDS ORDERED: Calcium Carbonate 500 MG ChewTAB PO SCH (12:00)
[2023-10-11 12:37] LABS: Bacteria/HPF 1+ HPF (None Seen); Bilirubin Negative (Negative); Blood, Urine Negative (Negative); CAUTI Indications for Culture Immunosuppressed; Clarity Turbid (Clear); Glucose, Urine (Dipstick) Normal (Negative); Ketone, Urine Negative (Negative); Leukocyte Negative Leu/uL (Negative); Nitrite Negative (Negative); Protein, Urine (Dipstick) 70 mg/dL (Neg-Trace); RBC/HPF 0-3 HPF (0-3); Squamous Epithelial None Seen HPF (0-3); Urobilinogen Normal mg/dL (Less than 2); WBC/HPF 0-3 HPF (0-3); pH, Urine 5.5 (5.0-9.0)
[2023-10-11 12:39] LABS: Urine Culture Reflex Yes Yes
[2023-10-11] MEDS ORDERED: Ipratropium/Albuterol 3 ML NEB NEB PRN (13:41)
[2023-10-11 15:05] LABS: Campy jejuni + coli by PCR Negative (Negative); STEC Shiga Toxin 1+2 Negative (Negative); Salmonella spp. by PCR Negative (Negative); Shigella spp + EIEC by PCR Negative (Negative)
[2023-10-11] MEDS: cefTRIAXone\\ROCEPHIN 1 GM in Sodium Chloride 0.9% 100 ML IVPB SCH (16:51)
[2023-10-11] MEDS: Calcium Carbonate 500 MG ChewTAB PO SCH (20:21)
[2023-10-11] MEDS: Doxycycline 100 MG CAP PO SCH (20:21)
[2023-10-11 21:04] LABS: Anion Gap 16 mmol/L (10-20); BUN (Urea Nitrogen) 41 mg/dL (9.8-20.1); Calc. Creatinine Clearance 24 mL/min (70-130); Carbon Dioxide 10 mmol/L (23-31); Chloride 107 mmol/L (98-107); Estimated GFR 17; Glucose 95 mg/dL (83-110); Potassium 3.3 mmol/L (3.5-5.1); Sodium 130 mmol/L (136-145)
[2023-10-11 21:08] LABS: Calcium 6.6 mg/dL (7.8-10.44); Critical Call Chemistry NUR.BCB@2108
[2023-10-12] MEDS ORDERED: Potassium Bicarbonate/Cit Ac 20 MEQ TAB PO SCH (01:00)
[2023-10-12] MEDS ORDERED: Calcium Carbonate 500 MG ChewTAB PO SCH (01:00)
[2023-10-12] MEDS: Potassium Bicarbonate/Cit Ac 20 MEQ TAB PO SCH ×2 (01:29→01:41)
[2023-10-12] MEDS: Calcium Carbonate 500 MG ChewTAB PO SCH ×5 (01:30→22:49)
[2023-10-12] MEDS: Vancomycin HCl 125 MG Capsule PO SCH ×4 (01:30→18:42)
[2023-10-12] MEDS: Levothyroxine Sodium 100 MCG TAB PO SCH (05:42)
[2023-10-12 06:37] LABS: Hematocrit 31.5 % (36.0-47.0); Hemoglobin 10.4 g/dL (12.0-16.0); Manual Diff?? YES; Mean Corpuscular Hemoglobin 26.9 pg (27.0-31.0); Mean Corpuscular Volume 81.6 fl (78.0-98.0); Mean Platelet Volume 9.7 fL (7.4-10.4); Platelet Count 357 10x3/uL (130-400); RBC Distribution Width 19.1 % (11.5-14.5); Red Blood Cell (RBC) Count 3.86 mill/uL (4.20-5.40); White Blood Cell (WBC) Count 5.3 10x3/uL (4.8-10.8)
[2023-10-12 06:41] LABS: Delete Auto Diff?? YES
[2023-10-12 07:08] LABS: ALT (SGPT) 23 U/L (8-55); AST (SGOT) 34 U/L (5-34); Albumin 2.8 g/dL (3.4-4.8); Alkaline Phosphatase 79 U/L (40-110); Anion Gap 16 mmol/L (10-20); BUN (Urea Nitrogen) 50 mg/dL (9.8-20.1); Bilirubin, Total 0.4 mg/dL (0.2-1.2); Calc. Creatinine Clearance 22 mL/min (70-130); Carbon Dioxide 11 mmol/L (23-31); Chloride 107 mmol/L (98-107); Estimated GFR 15; Globulin 2.8 g/dL (2.4-3.5); Glucose 89 mg/dL (83-110); Potassium 3.2 mmol/L (3.5-5.1); Protein, Total 5.6 g/dL (5.8-8.1); Sodium 131 mmol/L (136-145)
[2023-10-12 07:23] LABS: Calcium 6.6 mg/dL (7.8-10.44); Critical Call Chemistry NUR.DWD@0723
[2023-10-12] MEDS ORDERED: Furosemide 40 MG (4 mL) VIAL SLOW IVP SCH ×2 (07:45→17:30)
[2023-10-12] MEDS: Dronedarone HCl 400 MG TAB PO SCH ×2 (08:02→16:02)
[2023-10-12] MEDS: Doxycycline 100 MG CAP PO SCH (08:03)
[2023-10-12] MEDS: Ezetimibe 10 MG TAB PO SCH (08:03)
[2023-10-12] MEDS: PARoxetine 20 MG TAB PO SCH (08:03)
[2023-10-12] MEDS: Potassium Chloride 20 MEQ TAB PO SCH ×3 (08:03→22:51)
[2023-10-12] MEDS: Tamsulosin HCl 0.4 MG CAP PO SCH (08:03)
[2023-10-12] MEDS: Cholecalciferol 1,000 UNITS (25 MCG) TAB PO SCH (08:03)
[2023-10-12] MEDS: Heparin 5,000 UNITS/ML VIAL SC SCH ×3 (08:04→21:22)
[2023-10-12] MEDS: Atorvastatin Calcium 40 MG TAB PO SCH (08:04)
[2023-10-12 08:51] LABS: Band 31 % (5-11); Burr Cells MARKED = >16 cells HPF (0-1); CellaVision Operator ID LAB.GE; Giant Platelets 1.6 % (0-5); Large Platelets 10.6 % (0-5); Lymphocytes 11 % (21-51); Metamyelocyte 5 % (0-0); Monocytes 12 % (0-10); Neutrophil 37 % (42-75); Ovalocytes SLIGHT = 2-5 cells HPF (0-1); Platelet Adequacy Comment Platelets Normal; Platelet Clumps 4.9 % (0-5); Polychromasia SLIGHT = 2-3 cells HPF (0-2); Reactive Lymphocytes 2 % (0-10); Total Cell Count 123; Toxic Granulation MARKED; Vacuoles MODERATE
[2023-10-12] MEDS ORDERED: Furosemide 20 MG TAB PO SCH (09:00)
[2023-10-12] MEDS ORDERED: Potassium Chloride 20 MEQ TAB PO SCH ×2 (12:00→18:15)
[2023-10-12] MEDS: cefTRIAXone\\ROCEPHIN 1 GM in Sodium Chloride 0.9% 100 ML IVPB SCH (16:02)
[2023-10-12 16:31] LABS: Anion Gap 17 mmol/L (10-20); BUN (Urea Nitrogen) 54 mg/dL (9.8-20.1); Calc. Creatinine Clearance 22 mL/min (70-130); Carbon Dioxide 11 mmol/L (23-31); Chloride 107 mmol/L (98-107); Estimated GFR 15; Glucose 90 mg/dL (83-110); Sodium 132 mmol/L (136-145)
[2023-10-12 16:36] LABS: Calcium 6.5 mg/dL (7.8-10.44)
[2023-10-12] MEDS: risperiDONE 0.25 MG TAB PO SCH ×2 (21:22→22:50)
[2023-10-13 00:49] LABS: Chloride 108 mmol/L (98-107); Potassium 3.9 mmol/L (3.5-5.1); Sodium 132 mmol/L (136-145)
[2023-10-13 00:50] LABS: Glucose 89 mg/dL (83-110)
[2023-10-13 00:54] LABS: BUN (Urea Nitrogen) 54 mg/dL (9.8-20.1); Calc. Creatinine Clearance 21 mL/min (70-130); Estimated GFR 14
[2023-10-13 01:00] LABS: Calcium 6.8 mg/dL (7.8-10.44); Carbon Dioxide Less than 8 mmol/L (23-31); Phosphorus 4.6 mg/dL (2.3-4.7)
[2023-10-13] MEDS ORDERED: Potassium Bicarbonate/Cit Ac 20 MEQ TAB PO SCH (01:10)
[2023-10-13] MEDS ORDERED: Sodium Bicarbonate Tab 325 MG TAB PO SCH ×2 (01:15→23:00)
[2023-10-13] MEDS ORDERED: Sodium Bicarbonate 150 MEQ in Dextrose 5% in Water 1,000 ML IV SCH ×2 (01:30→06:30)
[2023-10-13] MEDS: Vancomycin HCl 125 MG Capsule PO SCH ×4 (01:36→19:28)
[2023-10-13 04:02] LABS: Hematocrit 34.3 % (36.0-47.0); Manual Diff?? YES; Mean Corpuscular HGB CONC 32.1 g/dL (32.0-36.0); Mean Corpuscular Hemoglobin 27.2 pg (27.0-31.0); Mean Platelet Volume 9.9 fL (7.4-10.4); Platelet Count 331 10x3/uL (130-400); RBC Distribution Width 19.7 % (11.5-14.5); Red Blood Cell (RBC) Count 4.05 mill/uL (4.20-5.40); White Blood Cell (WBC) Count 5.8 10x3/uL (4.8-10.8)
[2023-10-13 04:07] LABS: Delete Auto Diff?? YES; Mean Corpuscular Volume 84.7 fl (78.0-98.0)
[2023-10-13 04:21] LABS: Anion Gap 20 mmol/L (10-20); BUN (Urea Nitrogen) 58 mg/dL (9.8-20.1); Calc. Creatinine Clearance 21 mL/min (70-130); Chloride 107 mmol/L (98-107); Estimated GFR 14; Glucose 118 mg/dL (83-110); Potassium 3.5 mmol/L (3.5-5.1); Sodium 132 mmol/L (136-145)
[2023-10-13 04:41] LABS: Band 10 % (5-11); Burr Cells MODERATE= 6-15 cells HPF (0-1); CellaVision Operator ID lab.abc; Elliptocytes SLIGHT = 2-5 cells HPF (0-1); Large Platelets 6.7 % (0-5); Lymphocytes 12 % (21-51); Monocytes 15 % (0-10); Neutrophil 63 % (42-75); Platelet Adequacy Comment Platelets Normal; Platelet Clumps 1.7 % (0-5); Polychromasia SLIGHT = 2-3 cells HPF (0-2); Smudge Cells 23.3 %; Total Cell Count 60; Toxic Granulation SLIGHT; Vacuoles SLIGHT
[2023-10-13 04:44] LABS: Calcium 6.6 mg/dL (7.8-10.44); Carbon Dioxide 9 mmol/L (23-31); Critical Call Chemistry NUR.JW7@0444
[2023-10-13] MEDS: Levothyroxine Sodium 100 MCG TAB PO SCH (05:03)
[2023-10-13] MEDS ORDERED: Calcium Carbonate 500 MG ChewTAB PO SCH (05:41)
[2023-10-13] MEDS ORDERED: Furosemide 20 MG (2 mL) VIAL SLOW IVP SCH (05:45)
[2023-10-13] MEDS ORDERED: Potassium Chloride 20 MEQ TAB PO SCH ×3 (06:01→17:30)
[2023-10-13 06:55] LABS: ALT (SGPT) 21 U/L (8-55); AST (SGOT) 26 U/L (5-34); Albumin 2.8 g/dL (3.4-4.8); Alkaline Phosphatase 78 U/L (40-110); Anion Gap 16 mmol/L (10-20); BUN (Urea Nitrogen) 59 mg/dL (9.8-20.1); Bilirubin, Total 0.3 mg/dL (0.2-1.2); Calc. Creatinine Clearance 20 mL/min (70-130); Carbon Dioxide 14 mmol/L (23-31); Chloride 105 mmol/L (98-107); Estimated GFR 14; Globulin 2.9 g/dL (2.4-3.5); Glucose 135 mg/dL (83-110); Potassium 3.2 mmol/L (3.5-5.1); Protein, Total 5.7 g/dL (5.8-8.1); Sodium 132 mmol/L (136-145)
[2023-10-13 07:05] LABS: Calcium 6.6 mg/dL (7.8-10.44)
[2023-10-13 07:42] LABS: Base Excess -14.6 mEq/L (-2.0 to +3.0); Calcium, Ionized (venous) 0.81 mmol/L (1.16-1.32); Chloride (VBG) 103 mmol/L (98-106); Hematocrit-VBG 36 % (36.0-47.0); Hemoglobin (Hb) 12.3 g/dL (11.7-16.1); Potassium (VBG) 3.39 mmol/L (3.70-5.30); pH (venous) 7.268 (7.32-7.43)
[2023-10-13] MEDS: Heparin 5,000 UNITS/ML VIAL SC SCH ×3 (09:18→20:51)
[2023-10-13] MEDS: Dronedarone HCl 400 MG TAB PO SCH ×2 (09:18→16:35)
[2023-10-13] MEDS: Atorvastatin Calcium 40 MG TAB PO SCH (09:18)
[2023-10-13] MEDS: PARoxetine 20 MG TAB PO SCH (09:19)
[2023-10-13] MEDS: Cholecalciferol 1,000 UNITS (25 MCG) TAB PO SCH (09:19)
[2023-10-13] MEDS: Potassium Chloride 20 MEQ TAB PO SCH (09:19)
[2023-10-13] MEDS: Tamsulosin HCl 0.4 MG CAP PO SCH (09:19)
[2023-10-13] MEDS: Ezetimibe 10 MG TAB PO SCH (09:19)
[2023-10-13] MEDS: Calcium Carbonate 500 MG ChewTAB PO SCH ×3 (09:20→20:50)
[2023-10-13] MEDS ORDERED: Acetaminophen 325 MG TAB PO PRN (09:39)
[2023-10-13] MEDS ORDERED: Lidocaine 4% Patch TD SCH (10:00)
[2023-10-13] MEDS ORDERED: Acetaminophen 325 MG TAB PO SCH (10:00)
[2023-10-13 12:40] LABS: Anion Gap 22 mmol/L (10-20); BUN (Urea Nitrogen) 55 mg/dL (9.8-20.1); Calc. Creatinine Clearance 21 mL/min (70-130); Carbon Dioxide 10 mmol/L (23-31); Chloride 105 mmol/L (98-107); Estimated GFR 15; Glucose 161 mg/dL (83-110); Potassium 3.6 mmol/L (3.5-5.1); Sodium 133 mmol/L (136-145)
[2023-10-13 13:07] LABS: Calcium 6.6 mg/dL (7.8-10.44)
[2023-10-13 13:24] LABS: Lactic Acid 1.8 mmol/L (0.5-2.2)
[2023-10-13] MEDS: cefTRIAXone\\ROCEPHIN 1 GM in Sodium Chloride 0.9% 100 ML IVPB SCH (15:35)
[2023-10-13] MEDS: Potassium Chloride 20 MEQ in Premix 1 BAG IVPB SCH ×2 (16:10→17:33)
[2023-10-13 17:10] LABS: Anion Gap 15 mmol/L (10-20); BUN (Urea Nitrogen) 57 mg/dL (9.8-20.1); Calc. Creatinine Clearance 21 mL/min (70-130); Carbon Dioxide 16 mmol/L (23-31); Chloride 107 mmol/L (98-107); Estimated GFR 15; Glucose 127 mg/dL (83-110); Potassium 3.7 mmol/L (3.5-5.1); Sodium 134 mmol/L (136-145)
[2023-10-13 17:24] LABS: Calcium 6.5 mg/dL (7.8-10.44); Critical Call Chemistry NUR.KEW @1724
[2023-10-13] MEDS ORDERED: CALCIUM GLUC 1 GM/NS 50 ML 1 GM in Premix 1 BAG IVPB SCH (17:45)
[2023-10-13] MEDS ORDERED: Calcium Gluconate 100 MG/ML 10 ML IVPB SCH (17:45)
[2023-10-13 18:18] LABS: Magnesium 1.9 mg/dL (1.6-2.6); Phosphorus 2.9 mg/dL (2.3-4.7)
[2023-10-13] MEDS: risperiDONE 0.25 MG TAB PO SCH (20:50)
[2023-10-13] MEDS: Transdermal Patch Removal TOP SCH ×2 (20:50→20:51)
[2023-10-13 22:30] LABS: Anion Gap 18 mmol/L (10-20); BUN (Urea Nitrogen) 62 mg/dL (9.8-20.1); Calc. Creatinine Clearance 20 mL/min (70-130); Carbon Dioxide 14 mmol/L (23-31); Chloride 108 mmol/L (98-107); Estimated GFR 14; Glucose 144 mg/dL (83-110); Magnesium 2.1 mg/dL (1.6-2.6); Potassium 4.2 mmol/L (3.5-5.1); Sodium 136 mmol/L (136-145)
[2023-10-13 22:38] LABS: Calcium 6.9 mg/dL (7.8-10.44)
[2023-10-14] MEDS: Vancomycin HCl 125 MG Capsule PO SCH ×4 (00:07→18:16)
[2023-10-14] MEDS ORDERED: guaiFENesin ER 600 MG TAB PO SCH (05:30)
[2023-10-14] MEDS: Levothyroxine Sodium 100 MCG TAB PO SCH (05:38)
[2023-10-14] MEDS ORDERED: Scopolamine 1 mg/72 hour Patch TD SCH (06:00)
[2023-10-14] MEDS ORDERED: Furosemide 40 MG (4 mL) VIAL ONE (06:14)
[2023-10-14 06:30] LABS: #Monocytes 0.3 thou/uL (0.11-0.59); #Neutrophils 2.1 thou/uL (1.40-6.50); %Basophils 0.3 % (0.0-1.0); %Eosinophils 0.3 % (0.0-10.0); %Lymphocytes 29.9 % (21.0-51.0); %Monocytes 8.9 % (0.0-10.0); %Neutrophils 59.2 % (42.0-75.0); Hematocrit 32.7 % (36.0-47.0); Hemoglobin 10.6 g/dL (12.0-16.0); Manual Diff?? YES; Mean Corpuscular HGB CONC 32.4 g/dL (32.0-36.0); Mean Corpuscular Hemoglobin 26.8 pg (27.0-31.0); Mean Corpuscular Volume 82.8 fl (78.0-98.0); Platelet Count 362 10x3/uL (130-400); RBC Distribution Width 20.5 % (11.5-14.5); Red Blood Cell (RBC) Count 3.95 mill/uL (4.20-5.40); White Blood Cell (WBC) Count 3.6 10x3/uL (4.8-10.8)
[2023-10-14] MEDS ORDERED: NOREPINEPHRINE 8 MG/250 ML-D5W 250 ML ONE (06:53)
[2023-10-14 07:02] LABS: ALT (SGPT) 19 U/L (8-55); AST (SGOT) 29 U/L (5-34); Albumin 3.1 g/dL (3.4-4.8); Alkaline Phosphatase 84 U/L (40-110); Anion Gap 19 mmol/L (10-20); BUN (Urea Nitrogen) 62 mg/dL (9.8-20.1); Bilirubin, Total 0.4 mg/dL (0.2-1.2); Calc. Creatinine Clearance 19 mL/min (70-130); Calcium 7.1 mg/dL (7.8-10.44); Carbon Dioxide 11 mmol/L (23-31); Chloride 110 mmol/L (98-107); Estimated GFR 13; Globulin 3.2 g/dL (2.4-3.5); Glucose 169 mg/dL (83-110); Magnesium 2.1 mg/dL (1.6-2.6); Phosphorus 3.3 mg/dL (2.3-4.7); Potassium 5.3 mmol/L (3.5-5.1); Protein, Total 6.3 g/dL (5.8-8.1); Sodium 135 mmol/L (136-145)
[2023-10-14] MEDS ORDERED: Fentanyl CADD 100 ML ONE (07:23)
[2023-10-14] MEDS ORDERED: Vasopressin 20 UNITS in Sodium Chloride 0.9% 50 ML IV PRN (07:54)
[2023-10-14] MEDS ORDERED: Electrolyte Replacement Protocol 1 EACH IVPB PRN (07:54)
[2023-10-14] MEDS ORDERED: Piperacillin/Tazobactam 4.5 GM in Sodium Chloride 0.9% 100 ML IVPB SCH (08:00)
[2023-10-14] MEDS ORDERED: Fentanyl BOLUS 250 ML IVPB PRN (08:00)
[2023-10-14] MEDS ORDERED: Potassium Bicarbonate/Cit Ac 20 MEQ TAB PO SCH (08:00)
[2023-10-14] MEDS ORDERED: Propofol BOLUS 1,000 MG/100 ML VIAL IV PRN (08:00)
[2023-10-14] MEDS ORDERED: Lorazepam 2 MG/ML VIAL SLOW IVP PRN ×2 (08:00→19:14)
[2023-10-14] MEDS ORDERED: Rocuronium Bromide 50 MG/5 ML VIAL IVP SCH (08:00)
[2023-10-14] MEDS ORDERED: Propofol 1,000 MG/100 ML VIAL IV PRN (08:00)
[2023-10-14] MEDS ORDERED: Etomidate 40 MG (20 mL) VIAL IVP SCH (08:00)
[2023-10-14] MEDS ORDERED: Fentanyl CADD 100 ML IV SCH (08:00)
[2023-10-14] MEDS ORDERED: NOREPINEPHRINE 8 MG/250 ML-D5W 250 ML IVPB SCH (08:00)
[2023-10-14] MEDS ORDERED: Ventilator Sedation Protocol 1 EACH FS PRN (08:00)
[2023-10-14] MEDS ORDERED: Morphine 2 MG/ML VIAL SLOW IVP PRN ×3 (08:00→19:14)
[2023-10-14 08:06] LABS: Base Excess (BEa) -14.3 mEq/L (-2.0 to +3.0); Calcium, Ionized (arterial) 0.97 mmol/L (1.12-1.30); Carboxyhemoglobin (COHb) 0.7 gm% (0.0-3.0); Hematocrit-ABG 31 % (36.0-47.0); Hemoglobin (Hb) 10.7 g/dL (12.0-16.0); O2 Tension (PaO2), arterial 125.9 mmHg (> 70.0); Potassium - ABG Lab 4.74 mmol/L (3.70-5.30)
[2023-10-14 08:07] LABS: Puncture Site RRA
[2023-10-14] MEDS ORDERED: Electrolyte Replacement Protocol FS PRN (08:15)
[2023-10-14 08:21] LABS: Anisocytosis SLIGHT = 6-15 cells HPF (0-5); Burr Cells MODERATE= 6-15 cells HPF (0-1); CellaVision Operator ID LAB.CMB; Macrocytosis SLIGHT = 6-15 cells HPF (0-5); Ovalocytes SLIGHT = 2-5 cells HPF (0-1); Platelet Adequacy Comment Platelets Normal; Poikilocytosis MODERATE=16-30 cells HPF (0-5); Polychromasia MODERATE = 3-4 cells HPF (0-2); RBC Morphology 2
[2023-10-14 08:39] LABS: Lactic Acid 1.6 mmol/L (0.5-2.2)
[2023-10-14] MEDS ORDERED: Pantoprazole 40 MG VIAL IVP SCH (09:00)
[2023-10-14] MEDS ORDERED: Lidocaine 4% Patch TD SCH (09:00)
[2023-10-14] MEDS ORDERED: Sodium Bicarb 50 mEq/50 ML VIAL IVP SCH (09:00)
[2023-10-14] MEDS: NOREPINEPHRINE 8 MG/250 ML-D5W 250 ML IVPB PRN ×3 (09:17→17:20)
[2023-10-14] MEDS ORDERED: Hydrocortisone Sod Succ/PF 100 mg/2 ml Vial IVP SCH ×2 (09:30→16:00)
[2023-10-14 09:32] LABS: Actual Bicarbonate (HCO3a) 17.5 mEq/L (22-28); Base Excess (BEa) -7.2 mEq/L (-2.0 to +3.0); CO2 Tension 32.4 mmHg (35.0-45.0); Calcium, Ionized (arterial) 0.94 mmol/L (1.12-1.30); Carboxyhemoglobin (COHb) 0.2 gm% (0.0-3.0); Hematocrit-ABG 29 % (36.0-47.0); O2 Tension (PaO2), arterial 70.5 mmHg (> 70.0); Potassium - ABG Lab 4.21 mmol/L (3.70-5.30)
[2023-10-14 09:41] LABS: Puncture Site RRA
[2023-10-14] MEDS: Calcium Carbonate 500 MG ChewTAB PO SCH ×2 (09:50→14:59)
[2023-10-14] MEDS: Dronedarone HCl 400 MG TAB PO SCH ×2 (09:50→16:16)
[2023-10-14] MEDS: Atorvastatin Calcium 40 MG TAB PO SCH (09:50)
[2023-10-14] MEDS: Cholecalciferol 1,000 UNITS (25 MCG) TAB PO SCH (09:50)
[2023-10-14] MEDS: Heparin 5,000 UNITS/ML VIAL SC SCH ×2 (09:53→14:56)
[2023-10-14 09:57] VITALS: BMI 31.7
[2023-10-14] MEDS ORDERED: Sodium Bicarbonate 150 MEQ in Dextrose 5% in Water 1,000 ML IVP SCH ×2 (10:00→11:00)
[2023-10-14] MEDS ORDERED: Sodium Bicarb 50 mEq/50 ML VIAL ONE (10:48)
[2023-10-14] MEDS ORDERED: Sodium Bicarb 50 MEQ/50 ML Abboject 8.4% SYRINGE IVP SCH (11:15)
[2023-10-14 12:22] LABS: Anion Gap 19 mmol/L (10-20); BUN (Urea Nitrogen) 69 mg/dL (9.8-20.1); Calc. Creatinine Clearance 19 mL/min (70-130); Carbon Dioxide 18 mmol/L (23-31); Chloride 107 mmol/L (98-107); Estimated GFR 13; Glucose 179 mg/dL (83-110); Potassium 3.6 mmol/L (3.5-5.1); Sodium 140 mmol/L (136-145)
[2023-10-14 12:29] LABS: Calcium 6.4 mg/dL (7.8-10.44)
[2023-10-14] MEDS ORDERED: Calcium Chloride 1 GM/10 ML Abboject SYRINGE IVP SCH (12:45)
[2023-10-14] MEDS ORDERED: Calcium Chloride 1 GM/10 ML Abboject SYRINGE ONE (12:55)
[2023-10-14] MEDS ORDERED: Calcium Gluconate 100 MG/ML 10 ML IVPB SCH (13:30)
[2023-10-14] MEDS ORDERED: Calcium Gluconate 4.6 MEQ in Sodium Chloride 0.9% 100 ML IVPB SCH (13:30)
[2023-10-14] MEDS ORDERED: Potassium Chloride 20 MEQ in Premix 1 BAG IVPB SCH (14:00)
[2023-10-14] MEDS ORDERED: CALCIUM GLUC 1 GM/NS 50 ML 1 GM in Premix 1 BAG IVPB SCH (14:00)
[2023-10-14] MEDS ORDERED: Piperacillin/Tazobactam 3.375 GM in Sodium Chloride 0.9% 100 ML IVPB SCH (14:00)
[2023-10-14] MEDS: cefTRIAXone\\ROCEPHIN 1 GM in Sodium Chloride 0.9% 100 ML IVPB SCH (15:33)
[2023-10-14 15:52] LABS: Anion Gap 16 mmol/L (10-20); BUN (Urea Nitrogen) 66 mg/dL (9.8-20.1); Calc. Creatinine Clearance 18 mL/min (70-130); Calcium 8.6 mg/dL (7.8-10.44); Carbon Dioxide 19 mmol/L (23-31); Chloride 108 mmol/L (98-107); Estimated GFR 12; Glucose 193 mg/dL (83-110); Potassium 3.7 mmol/L (3.5-5.1); Sodium 139 mmol/L (136-145)
[2023-10-14 16:16] VITALS: TEMP 98.3
[2023-10-14] MEDS ORDERED: DC Sedation Protocol FS SCH (18:48)
[2023-10-14 19:21] VITALS: BP 110/70
[2023-10-15] MEDS ORDERED: Potassium Chloride 20 MEQ TAB PO SCH (08:00)
[2023-10-16 10:41] LABS: Actual Bicarbonate (HCO3v) 10.5 mEq/L (22-28)
[2023-10-16 10:47] LABS: pH, Arterial 7.165 (7.35-7.45)
[2023-10-16 10:48] LABS: Actual Bicarbonate (HCO3a) 13.4 mEq/L (22-28)
== END 2023-10-14 19:36 | disposition expired | DRG 808 ==
LOC: MSONC 15:18 → INTOOBSV 15:18 → OBSVTOIN 10-11 08:26 → CCU 10-14 06:36
PROVIDERS: ADMIT Emergency Medicine; ATTEND Emergency Medicine
PROC: 06HY33Z Insertion of Infusion Device into Lower Vein, Percutaneous Approach (ICD-10-PCS; principal; 2023-10-14)
PROC: 5A1935Z Respiratory Ventilation, Less than 24 Consecutive Hours (ICD-10-PCS; 2023-10-14)
PROC: 0BH17EZ Insertion of Endotracheal Airway into Trachea, Via Natural or Artificial Opening (ICD-10-PCS; 2023-10-14)
PROC: 3E033XZ Introduction of Vasopressor into Peripheral Vein, Percutaneous Approach (ICD-10-PCS; 2023-10-14)
PROC: 4A133R1 Monitoring of Arterial Saturation, Peripheral, Percutaneous Approach (ICD-10-PCS; 2023-10-14)
DX: D70.1 Agranulocytosis secondary to cancer chemotherapy (principal); A41.9 Sepsis, unspecified organism; J96.01 Acute respiratory failure with hypoxia; R65.21 Severe sepsis with septic shock; J69.0 Pneumonitis due to inhalation of food and vomit; K55.059 Acute (reversible) ischemia of intestine, part and extent unspecified; E87.1 Hypo-osmolality and hyponatremia; A04.72 Enterocolitis due to Clostridium difficile, not specified as recurrent; N17.9 Acute kidney failure, unspecified; E87.20 Acidosis, unspecified; C41.9 Malignant neoplasm of bone and articular cartilage, unspecified; K56.609 Unspecified intestinal obstruction, unspecified as to partial versus complete obstruction; N18.5 Chronic kidney disease, stage 5; I13.2 Hypertensive heart and chronic kidney disease with heart failure and with stage 5 chronic kidney disease, or end stage renal disease; E78.5 Hyperlipidemia, unspecified; E03.9 Hypothyroidism, unspecified; K21.9 Gastro-esophageal reflux disease without esophagitis; I48.91 Unspecified atrial fibrillation; I50.9 Heart failure, unspecified; I27.20 Pulmonary hypertension, unspecified; R13.10 Dysphagia, unspecified; C50.919 Malignant neoplasm of unspecified site of unspecified female breast; E87.6 Hypokalemia; E83.51 Hypocalcemia; R33.9 Retention of urine, unspecified; E86.0 Dehydration; E11.65 Type 2 diabetes mellitus with hyperglycemia; D64.9 Anemia, unspecified; E88.09 Other disorders of plasma-protein metabolism, not elsewhere classified; T45.1X5A Adverse effect of antineoplastic and immunosuppressive drugs, initial encounter; E11.22 Type 2 diabetes mellitus with diabetic chronic kidney disease; Z66 Do not resuscitate; Z88.1 Allergy status to other antibiotic agents; Z79.899 Other long term (current) drug therapy; Z85.3 Personal history of malignant neoplasm of breast; Z95.0 Presence of cardiac pacemaker; Z98.890 Other specified postprocedural states; Z90.49 Acquired absence of other specified parts of digestive tract
CPT/HCPCS: 36415; 36416; 36600; 71045; 71250; 74176; 80048; 80053; 81001; 82306; 82570; 82805; 83605; 83735; 83880; 83970; 84100; 84145; 84300; 84540; 85025; 87040; 87086; 87324; 87449; 87505; 93005; 93010; 93306; 94002; 94640; 96365; 96366; 96368; 96372; 96375; 96376; C9113; G0378; J0613; J0696; J1447; J1644; J1720; J1940; J2060; J2272; J2543; J3475; J3480; J3490; J7050; J7070; J7620